=== PATIENT | male | born 1935 | race Caucasian/White ===

== ENCOUNTER 2018-08-30 08:24 | Day surgery (SDC) | payer OTHER, SELFPAY ==
[2018-08-30] VITALS (7 sets, daily range): BP systolic 85–147; BP diastolic 47–83; PULSE 63–80; RESP 14–20; TEMP 36.7–37.1; O2SAT 93–95; BMI 25.8
--- NOTE | 2018-08-30 | PATH_ITS ---
[facility] Accession Number: [id number] . 01 Material submitted: . PART A: POLYP BIOPSY ASCENDING COLON PART B: HEPATIC FLEXURE POLYP BIOPSY PART C: TRANSVERSE COLON POLYP AT 60CM X2 PART D: SIGMOID COLON POLYP AT 18CM . 02 Diagnosis: A. Ascending Colon Polyp, Biopsy: Tubular adenoma. . B. Hepatic Flexure Polyp, Biopsy: Tubular adenoma. . C. Transverse Colon Polyps at 60 cm: Fragments of tubular adenoma (two polyps removed). . D. Sigmoid Colon Polyp at 18 cm: Hyperplastic polyp. MRV/08/31/2018 . 02 Electronically signed: . Odin Leavitt MD, PhD, Pathologist NPI- [id number] . 01 Gross description: . Received four formalin-filled containers, each labeled with the patient's name: . A. In a container labeled polyp at ascending colon, the specimen consists of a 0.2 cm portion of tissue, entirely submitted in cassette A. B. In a container labeled hepatic flexure polyp, are two 0.3-0.5 cm portions of tissue, entirely submitted in cassette B. C. In a container labeled transverse polyp at 60 cm, are multiple less than 0.1 cm to 0.3 cm portions of tissue, entirely submitted in cassette C. D. In a container labeled sigmoid colon polyp at 18 cm, are two 0.1-0.3 cm portions of tissue, entirely submitted in cassette D. ([id number]) /FRR . 02 Pathologist provided ICD-10: D12.2, D12.3 . 02 CPT . 766649, [id number], [id number], [id number] Performed at: [address] [id number] MD Shahbaz Davenport MD Phone: [phone] Performed at: [address] [id number] MD Yvette Maxwell MD Phone: [phone]
[2018-08-30] MEDS: SODIUM CHLORIDE 0.9% 1,000 ML 200 ML IV (08:57)
--- NOTE | 2018-08-30 10:43 | PM.HP.1 ---
History of Present Illness Date Patient Seen: 08/30/18 Time Patient Seen: 10:43 Chief complaint: [id number] Narrative: 82-year-old male with personal history of colon polyps who presents today for colorectal screening. His last colonoscopy was 5 years ago. He denies any current gastrointestinal symptoms on further history today. No recent nausea, vomiting, loss of appetite, unexplained weight loss, abdominal pain, change in bowel habits, diarrhea, constipation, melena, hematochezia, or bright red blood per rectum. Patient History Medical History Benign prostatic hyperplasia (Acute) History of colon polyps (Acute) Hypertension (Acute) Surgical History History of colonoscopy (Acute) Family & Social History Family History: Reviewed 08/30/18 by Markos Middleton MD Social History: household members friend(s) Meds Home Medications Medication Instructions Recorded Confirmed Type finasteride 1 mg PO DAILY 08/30/18 08/30/18 History Allergies Allergy/AdvReac Type Severity Reaction Status Date / Time No Known Drug Allergies Allergy Verified 08/30/18 09:12 Review of Systems Review of Systems All systems reviewed & are unremarkable except as noted in HPI and below Exam Vital Signs (past 8 hours): - 08/30/18 09:03 Temperature 98.0 F Pulse Rate 76 Respiratory Rate 16 Blood Pressure 147/83 H Pulse Oximetry 95 Oxygen Delivery Method Room Air Narrative Exam Narrative: Elderly male lying comfortably in the gurney in no acute distress. Alert oriented x3. His is at the bedside for my entire visit this morning. Sclera nonicteric Chest clear to auscultation bilaterally with regular rate and rhythm. No murmurs, gallops, rubs. No crackles or wheezes. Abdomen is protuberant but soft. Nondistended. Nontender. No masses. Extremities show no clubbing or cyanosis Objective Labs Labs: No recent laboratory or radiographic studies for review Assessment & Plan Plan: Assessment/Plan Narrative: 82-year-old male with personal history of colon polyps. Last endoscopy was 5 years ago. He requires colorectal surveillance given the nature of the polyps. I recommend colonoscopy. Technical details of the procedure were explained. Risks, benefits, alternatives were discussed. Risks including but not limited to sedation, aspiration, bleeding, pain, missed lesion, incomplete examination, need for further radiographic studies, colonic perforation, need for major abdominal surgery, and all attendant risks of major surgery were explained at length. All questions were answered to his satisfaction, and he voiced understanding. Consent was placed on the chart. We will proceed as above.
--- NOTE | 2018-08-30 10:47 | P.HP_ITS ---
History of Present Illness Date Patient Seen: 08/30/18 Time Patient Seen: 10:43 Chief complaint: [id number] Narrative: 82-year-old male with personal history of colon polyps who presents today for colorectal screening. His last colonoscopy was 5 years ago. He denies any current gastrointestinal symptoms on further history today. No recent nausea, vomiting, loss of appetite, unexplained weight loss, abdominal pain, change in bowel habits, diarrhea, constipation, melena, hematochezia, or bright red blood per rectum. Patient History Medical History Benign prostatic hyperplasia (Acute) History of colon polyps (Acute) Hypertension (Acute) Surgical History History of colonoscopy (Acute) Family & Social History Family History: Reviewed 08/30/18 by Markos Middleton MD Social History: household members friend(s) Meds Home Medications Medication Instructions Recorded Confirmed Type finasteride 1 mg PO DAILY 08/30/18 08/30/18 History Allergies Allergy/AdvReac Type Severity Reaction Status Date / Time No Known Drug Allergies Allergy Verified 08/30/18 09:12 Review of Systems Review of Systems All systems reviewed & are unremarkable except as noted in HPI and below Exam Vital Signs (past 8 hours): - 08/30/18 09:03 Temperature 98.0 F Pulse Rate 76 Respiratory Rate 16 Blood Pressure 147/83 H Pulse Oximetry 95 Oxygen Delivery Method Room Air Narrative Exam Narrative: Elderly male lying comfortably in the gurney in no acute distress. Alert oriented x3. His is at the bedside for my entire visit this morning. Sclera nonicteric Chest clear to auscultation bilaterally with regular rate and rhythm. No murmurs , gallops, rubs. No crackles or wheezes. Abdomen is protuberant but soft. Nondistended. Nontender. No masses. Extremities show no clubbing or cyanosis Objective Labs Labs: No recent laboratory or radiographic studies for review Assessment & Plan Plan: Assessment/Plan Narrative: 82-year-old male with personal history of colon polyps. Last endoscopy was 5 years ago. He requires colorectal surveillance given the nature of the polyps. I recommend colonoscopy. Technical details of the procedure were explained. Risks, benefits, alternatives were discussed. Risks including but not limited to sedation, aspiration, bleeding, pain, missed lesion, incomplete examination, need for further radiographic studies, colonic perforation, need for major abdominal surgery, and all attendant risks of major surgery were explained at length. All questions were answered to his satisfaction, and he voiced understanding. Consent was placed on the chart. We will proceed as above.
--- NOTE | 2018-08-30 10:47 | PM.PREOP ---
Pre-operative Note Interval Note Pre-op Check: Yes History & Physical Reviewed by Physician, Yes Exam Performed and Yes History & Physical exam performed today by Physician Changes: No ASA Class (for procedural sedation): II
[2018-08-30] MEDS: fentaNYL 250 MCG/5 ML INJ IV (11:17)
[2018-08-30] MEDS: MIDAZOLAM 5 MG/5 ML VIAL IV (11:17)
--- NOTE | 2018-08-30 11:29 | PM.OP.ENDO ---
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 Sedation per surgeon 2. Colonoscopy with multiple cold forceps polypectomies Same procedure as scheduled: Yes Indications: 82-year-old male with personal history of colon polyps. His last endoscopy was 5 years ago. Colonoscopy is once again recommended. Surgeon: Markos Middleton Procedure Notes SCOAP/Timeout: Yes Procedure in detail: After obtaining informed consent, the patient was brought to the GI suite and placed in the left lateral decubitus position on the examination table. After placement of appropriate monitors, the patient was given incremental doses of Versed and Fentanyl until an appropriate level of sedation was achieved. A time out was held per SCOAP protocol. A digital rectal examination was performed and did not reveal any masses or obstructing lesions. The colonoscope was gently passed into the patient's anus and the entire colon navigated to the level of the cecum with minimal difficulty. Once in the cecum, the scope was withdrawn being sure to go before and beyond all mucosal folds and prominences and get an excellent examination. The findings are noted above. At the level of the rectal vault, the scope was retroflexed and the internal anal canal was examined. The scope was straightened and air aspirated from the colon. The instrument was removed from the patient's body and the procedure was concluded. The patient was allowed to awaken from sedation without difficulty and taken to the post-anesthesia care unit in good condition. Scope withdrawal time: 12:27 min Sedation minutes: 27 Findings: polyp and vascular ectasias (Located in the cecum with no evidence of hemorrhage currently) Specimen(s): other (1. Ascending colon polyp 2. Hepatic flexure polyp 3. Transverse colon polyps x2 at 60 cm 4. Sigmoid polyp at 18 cm) Complications: none Recommendations: High fiber diet, Will call with biopsy results and Other recommendation (No further colonoscopy indicated in absence of new symptoms pending biopsy results) Plan for aftercare: 1. Discharge home Follow up: as needed Disposition: PACU
== END 2018-08-30 12:20 | disposition home or self-care (01) ==
PROVIDERS: Family Provider Internal Medicine Cardiovascular Disease; PCP Family Medicine; Visit Provider Surgery
PROC: 0DJD8ZZ Inspection of Lower Intestinal Tract, Via Natural or Artificial Opening Endoscopic (ICD-10-PCS; CPT 45378; principal; 2018-08-30 09:45)
DX: Z86.010 Personal history of colon polyps (principal); D12.2 Benign neoplasm of ascending colon; D12.3 Benign neoplasm of transverse colon; D12.5 Benign neoplasm of sigmoid colon; I10 Essential (primary) hypertension; N40.0 Benign prostatic hyperplasia without lower urinary tract symptoms
CPT/HCPCS: 45380; 99152; 99153; J2250; J3010

== ENCOUNTER 2019-09-11 09:00 | Emergency (ER) | payer OTHER, SELFPAY ==
[2019-09-11 09:30] VITALS: BP 107/60; PULSE 76; RESP 15; TEMP 36.1; O2SAT 98; BMI 25.8
--- NOTE | 2019-09-11 09:33 | DI.RAD.S_ITS ---
PROCEDURE: XR WRIST RT MIN 3V INDICATIONS: injury TECHNIQUE: 4 views of the wrist were acquired. COMPARISON: None. FINDINGS: Bones: No displaced fractures or dislocations. There is moderate degeneration at the 1st carpometacarpal and triscaphe articulations. No suspicious bony lesions. Scaphoid view: The scaphoid appears intact. Soft tissues: No suspicious soft tissue calcifications. There is soft tissue swelling adjacent to the distal ulna. IMPRESSION: 1. No displaced fracture or dislocation. 2. Moderate degenerative changes at the triscaphe and 1st carpometacarpal articulations. Dictated by: Shahbaz Villela M.D. on 09/11/2019 at 8:55 Approved by: Shahbaz Villela M.D. on 09/11/2019 at 8:57
--- NOTE | 2019-09-11 10:39 | DI.RAD.S_ITS ---
PROCEDURE: XR RIBS LT MIN 3V W CXR1V INDICATIONS: fall/rib pain TECHNIQUE: 4 views of the left ribs were acquired, along with a single view chest. COMPARISON: None. FINDINGS: Surgical changes and devices: An IVC filter is noted. Bones and chest wall: No displaced rib fracture identified. No suspicious bony lesions. Overlying soft tissues appear unremarkable. Lungs and pleura: No pleural effusions or pneumothorax. Lungs appear clear. Mediastinum: Mediastinal contours appear normal. Heart size is normal. IMPRESSION: 1. No displaced rib fracture identified. Dictated by: Shahbaz Villela M.D. on 09/11/2019 at 9:52 Approved by: Shahbaz Villela M.D. on 09/11/2019 at 9:54
--- NOTE | 2019-09-11 10:47 | ED.FALL ---
HPI - Fall General Chief Complaint: Fall Stated Complaint: FELL LAST NIGHT- HURT R WRIST & RIBS Time Seen by Provider: 09/11/19 10:14 Source: patient Mode of arrival: Ambulatory Limitations: no limitations History of Present Illness HPI Narrative: Patient comes emergency department complaining of right wrist and left rib pain after a fall last night. Patient states he was walking his dog when he tripped over the dog and fell. Patient states he thinks he fell on asphalt. He complains right wrist pain and left rib pain. He states that it does not hurt to take a deep breath but feels ?weird?. Patient states he has been able to move his wrist, but that he has pain over the ulnar styloid area. Patient states he ?bumped? his head, but that he has not noticed any swelling over the area. He did not lose consciousness and has not had headache, dizziness, or nausea today. No visual changes. Patient denies any other injuries. He has been ambulatory since the fall. No hip or lower extremity pain. No other injuries to the upper extremities. no other complaints at this time. Related Data Home Medications Medication Instructions Recorded Confirmed finasteride 1 mg PO DAILY 08/30/18 08/30/18 Allergies Allergy/AdvReac Type Severity Reaction Status Date / Time No Known Drug Allergies Allergy Verified 09/11/19 09:30 Review of Systems Constitutional Constitutional: Denies chills, Denies fatigue, Denies fever(s), Denies frequent falls, Denies lethargy and Denies weakness Eyes Eyes: Denies change in vision, Denies eye discharge, Denies irritation and Denies loss of vision ENT Ears, Nose, Mouth, and Throat: Denies change in voice, Denies dizziness, Denies neck pain, Denies sore throat and Denies throat swelling Cardiovascular Cardiovascular: Denies chest pain, Denies irregular heart rhythm, Denies lightheadedness, Denies palpitations, Denies dyspnea, Denies dyspnea on exertion and Denies orthopnea Respiratory Respiratory: Denies cough, Denies dyspnea, Denies dyspnea on exertion and Denies wheezing Gastrointestinal Gastrointestinal: Denies abdominal pain, Denies change in bowel habits, Denies diarrhea, Denies nausea and Denies vomiting Genitourinary Genitourinary: Denies hematuria, Denies flank pain, Denies urinary incontinence and Denies urinary urgency Musculoskeletal Musculoskeletal: Denies back pain, Denies muscle weakness, Denies neck pain, Denies numbness and Denies tingling Comments: Wrist pain Integumentary/Breasts Skin/Breast: Denies pruritus, Denies erythema, Denies rash and Denies wounds Neurologic Neurologic: Denies behavioral changes, Denies confusion, Denies dizziness, Denies frequent falls, Denies loss of vision, Denies numbness, Denies tingling and Denies weakness Psychiatric Psychiatric: Denies anxiety, Denies behavioral changes, Denies confusion, Denies depression, Denies homicidal ideation and Denies suicidal ideation Endocrine Endocrine: Denies fatigue, Denies flushing and Denies palpitations Hematologic/Lymphatic Hematologic/Lymphatic: Denies easy bruising Allergic/Immunologic Allergic/Immunologic: Denies urticaria, Denies throat swelling and Denies wheezing Patient History Medical History Benign prostatic hyperplasia (Acute) History of colon polyps (Acute) Hypertension (Acute) Surgical History History of colonoscopy (Acute) Social History household members: friend(s) Exam Initial Vital Signs Initial Vital Signs: Vital Signs Temperature 96.9 F L 09/11/19 09:30 Pulse Rate 76 09/11/19 09:30 Respiratory Rate 15 09/11/19 09:30 Blood Pressure 107/60 09/11/19 09:30 Pulse Oximetry 98 09/11/19 09:30 Const General: cooperative and well developed Nutritional Appearance: well nourished Orientation: alert, awake, oriented x3 and not confused [facility] Head: normocephalic and atraumatic Ears: TM's normal bilaterally Nose: external nose normal and No nasal discharge Face and sinus: face symmetric and No dry mucous membranes Mouth: oral mucosae normal and moist mucous membranes Teeth and gingiva: dentition normal Eyes General: appearance normal, both eyes and all related structures Eyelids: eyelids normal Conjunctivae: conjunctivae normal Sclera: sclerae normal Pupils: PERRL EOM: EOM intact bilaterally Neck Neck: normal visual inspection, trachea midline, No lymphadenopathy, No midline deformity and No JVD Lymphatic: No lymphedema Other: No C-spine tenderness or step-off. Chest Other: Patient has tenderness palpation over his left anterior inferior rib cage. No step-off or crepitus. Resp Effort & Inspection: normal respiratory effort, able to speak in complete sentences, no respiratory distress and no use of accessory muscles Auscultation: clear to auscultation bilaterally, no rales, no rhonchi and no wheezes Cardio Rate: regular rate Rhythm: regular rhythm Heart Sounds: no click, no gallops, no murmurs and no rubs Pulses: normal peripheral pulses GI Inspection: non-distended Palpation: soft, no hepatosplenomegaly, No guarding, No pulsatile mass and No tender Auscultation: normal bowel sounds Back/Spine/Pelvis Back: No CVA tenderness Cervical Spine: cervical ROM normal and No pain with cervical ROM Thoracic/Lumbar Spine: thoracic and lumbar spine normal to inspection Other: No pelvic tenderness. Skin General: no rashes or lesions noted, No jaundice and No petechiae Neuro General: alert, oriented x3, gait normal and no focal motor deficits Speech: speech normal Extrem General: full ROM Other: Patient has edema over the dorsum of his right proximal hand and wrist. No deformity. Patient has mild tenderness over the ulnar aspect of his wrist. Neurovascularly intact. no other extremity trauma noted. Psych Appearance: well kempt Mental Status: mental status grossly normal Attitude: cooperative Thought Content: normal and suicidality Judgment: judgment good Course Course Course Narrative: Patient was worked up with x-rays of the left ribs and the right wrist, all of which were unremarkable. We have discussed home management of the symptoms, as well as the usual indications for return. Orders Ordered: ED Orders 09/11/19 09:33 XR wrist RT min 3V Stat 09/11/19 10:39 XR ribs LT min 3V w CXR1V Stat Vital Signs Vital signs: Vital Signs - 8 hr 09/11/19 09:30 Temperature 96.9 F L Pulse Rate 76 Respiratory Rate 15 Blood Pressure 107/60 Pulse Oximetry 98 MDM - Fall Medical Records Attestation: I reviewed the patient's medical records. Imaging Data X-ray ribs: Radiologist's impression: PROCEDURE: XR RIBS LT MIN 3V W CXR1V INDICATIONS: fall/rib pain TECHNIQUE: 4 views of the left ribs were acquired, along with a single view chest. COMPARISON: None. FINDINGS: Surgical changes and devices: An IVC filter is noted. Bones and chest wall: No displaced rib fracture identified. No suspicious bony lesions. Overlying soft tissues appear unremarkable. Lungs and pleura: No pleural effusions or pneumothorax. Lungs appear clear. Mediastinum: Mediastinal contours appear normal. Heart size is normal. IMPRESSION: 1. No displaced rib fracture identified. Dictated by: Shahbaz Villela M.D. on 09/11/2019 at 9:52 Approved by: Shahbaz Villela M.D. on 09/11/2019 at 9:54 X-ray wrist: Radiologist's impression: PROCEDURE: XR WRIST RT MIN 3V INDICATIONS: injury TECHNIQUE: 4 views of the wrist were acquired. COMPARISON: None. FINDINGS: Bones: No displaced fractures or dislocations. There is moderate degeneration at the 1st carpometacarpal and triscaphe articulations. No suspicious bony lesions. Scaphoid view: The scaphoid appears intact. Soft tissues: No suspicious soft tissue calcifications. There is soft tissue swelling adjacent to the distal ulna. IMPRESSION: 1. No displaced fracture or dislocation. 2. Moderate degenerative changes at the triscaphe and 1st carpometacarpal articulations. Dictated by: Shahbaz Villela M.D. on 09/11/2019 at 8:55 Approved by: Shahbaz Villela M.D. on 09/11/2019 at 8:57 Discharge Plan Departure Patient Disposition: Home Clinical Impression: Right wrist sprain Qualifiers: Encounter type: initial encounter Qualified Code(s): S63.501A - Unspecified sprain of right wrist, initial encounter Contusion of ribs Qualifiers: Encounter type: initial encounter Laterality: left Qualified Code(s): S20.212A - Contusion of left front wall of thorax, initial encounter Discharge Date/Time: 09/11/19 11:40 Instructions: DI for Wrist Sprain, DI for Rib Contusion Activity Restrictions/Additional Instructions: The x-rays of your wrist and your ribs look good. 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 Your ribs also look good. You have most likely bruised them in the fall, but there is nothing broken. Prescriptions: No Action finasteride 1 mg Tablet 1 mg PO DAILY RF: 0 Referrals: Vinayak Carreon MD [Primary Care Provider] -
[2019-09-11 11:38] VITALS: PULSE 67; RESP 16; O2SAT 97
== END 2019-09-11 11:40 | disposition home or self-care (01) ==
PROVIDERS: Emergency Provider Emergency Medicine; Family Provider Internal Medicine Cardiovascular Disease; PCP Family Medicine
DX: S63.501A Unspecified sprain of right wrist, initial encounter (principal); S20.212A Contusion of left front wall of thorax, initial encounter; W01.0XXA Fall on same level from slipping, tripping and stumbling without subsequent striking against object, initial encounter
CPT/HCPCS: 71101; 73110; 99282; 99283

== ENCOUNTER 2023-02-09 08:15 | Emergency (ER) | payer OTHER, SELFPAY ==
[2023-02-09] VITALS (10 sets, daily range): BP systolic 118–177; BP diastolic 56–100; PULSE 60–75; RESP 16–29; TEMP 36.5; O2SAT 94–96; BMI 27.4
--- NOTE | 2023-02-09 09:06 | DI.RAD.S_ITS ---
PROCEDURE: XR CHEST 1V INDICATIONS: chest pain TECHNIQUE: One view of the chest was acquired. COMPARISON: None. FINDINGS: Surgical changes and devices: None. Lungs and pleura: Lungs are clear. No pleural effusions or pneumothorax. Mediastinum: Mediastinal contours appear normal. Heart size is normal. Bones and chest wall: No suspicious bony lesions. Overlying soft tissues appear unremarkable. IMPRESSION: No acute pulmonary process. Dictated by: Henna Ramirez M.D. on 02/09/2023 at 9:18 Approved by: Henna Ramirez M.D. on 02/09/2023 at 9:18
--- NOTE | 2023-02-09 09:06 | DI.CT.S_ITS ---
PROCEDURE: CT HEAD/BRAIN WO CON INDICATIONS: headache TECHNIQUE: Noncontrast 4.5 mm thick angled axial sections acquired from the foramen magnum to the vertex, with coronal and sagittal reformats. For radiation dose reduction, the following was used: automated exposure control, adjustment of mA and/or kV according to patient size. COMPARISON: None. FINDINGS: Image quality: Excellent. CSF spaces: Basal cisterns are patent. No extra-axial fluid collections. The ventricles are symmetric in size and shape. Brain: No intracranial bleeds or masses. There is cerebral volume loss for age, with resultant ventricular and sulcal prominence. There are periventricular and deep white matter chronic small vessel ischemic changes. There is intracranial internal carotid artery atherosclerosis. Skull and face: Calvarium and visualized facial bones appear intact, without suspicious lesions. Sinuses: Visualized sinuses and mastoids are clear. IMPRESSION: 1. No acute intracranial process. 2. Moderate atrophy and chronic microvascular ischemic changes. Dictated by: Henna Ramirez M.D. on 02/09/2023 at 9:23 Approved by: Henna Ramirez M.D. on 02/09/2023 at 9:24
--- NOTE | 2023-02-09 09:08 | ED.HA ---
HPI - Headache General Chief Complaint: Headache Stated Complaint: sent by [facility] for headache T-1 Time Seen by Provider: 02/09/23 08:40 Mode of arrival: Ambulatory History of Present Illness HPI Narrative: Patient is an 87-year-old male with history of hyperlipidemia, possible atrial fibrillation not on anticoagulation, presents today from walk-in clinic for headache ongoing for about 1-2 days. It is in the back of his head he did take Tylenol last night for it which seemed to help. He is no numbness tingling or weakness. He does not typically get headaches. He is no nausea or vomiting. Went to the walk-in clinic for evaluation and sent here for further workup. He has not had fever no neck pain. No abdominal pain no chest pain or palpitations. Overall feeling better now that he is here in the emergency department. Related Data Home Medications Medication Instructions Recorded Confirmed finasteride 1 mg tablet 1 mg PO DAILY 08/30/18 08/30/18 Allergies Allergy/AdvReac Type Severity Reaction Status Date / Time No Known Drug Allergies Allergy Verified 09/11/19 09:30 Review of Systems Review of Systems ROS Unobtainable: All systems reviewed & are unremarkable except as noted in HPI and below Patient History Medical History (Updated 02/09/23 @ 10:31 by Becki Oneal DO) Benign prostatic hyperplasia History of colon polyps Hypertension Surgical History History of colonoscopy Social History household members: friend(s) Smoking Status: Never smoker Smoking Status: Never smoker alcohol intake frequency: a few times a week Alcohol type: beer Substance Use Type: does not use Exam Initial Vital Signs Initial Vital Signs: Vital Signs Temperature 97.7 F 02/09/23 08:24 Pulse Rate 64 02/09/23 08:24 Respiratory Rate 18 02/09/23 08:24 Blood Pressure 177/81 H 02/09/23 08:24 Pulse Oximetry 96 02/09/23 08:24 Oxygen Delivery Method Room Air 02/09/23 08:24 GENERAL: Alert very pleasant 87-year-old male and in no acute distress. HEENT: Head atraumatic,EOMI, pupils reactive, face symmetric, moist mucous membranes CARDIOVASCULAR: Regular rate and rhythm without murmurs, rubs or gallops. RESPIRATORY: Breath sounds equal bilaterally, no wheezes rales or rhonchi. ABDOMEN: Soft, nontender. Normoactive bowel sounds all 4 quadrants. No guarding or rebound. EXTREMITIES: Normal range of motion, no clubbing or edema. Neurovascularly intact NEUROLOGICAL: Alert and oriented x4.Normal gait and speech. Cranial nerves II through XII grossly intact. Good dxsesg-ep-ibgj, good dycn-jv-rpql, strength equal bilaterally, no dysarthria or aphasia, sensation in tact to soft touch bilaterally, no visual changes, no facial droop SKIN: Warm, dry, no laceration, no petechiae, no rashes or lesions. Scores NIH Stroke Scale Level of Conciousness: Alert, keenly responsive Ask month/age: Answers both questions correctly. Open/close eyes, close hand: Performs both tasks correctly Best gaze horizontal: Normal Visual glass: No visual loss Facial palsy: Normal symetrical movement Left arm drift: No drift for full 10 sec Right arm drift: No drift for full 10 sec Left leg drift: No drift for full 5 sec Right leg drift: No drift for full 5 sec Limb ataxia: Absent Sensory on face/arms/legs: Normal, no sensory loss Best language: No aphasia, normal Dysarthria: Normal Extinction or inattention: No abnormality Total NIH Stroke scale score: 0 Course Orders Ordered: Discontinued Medications Acetaminophen (Acetaminophen 325 Mg Tablet) 975 mg PO NOW ONE Stop: 02/09/23 09:07 Last Admin: 02/09/23 11:22 Dose: 975 mg Documented By: [facility] Vital Signs Vital signs: Vital Signs - 8 hr 02/09/23 08:24 02/09/23 08:31 02/09/23 09:00 Temperature 97.7 F Pulse Rate 64 62 Respiratory Rate 18 29 H Blood Pressure 177/81 H 144/68 H Pulse Oximetry 96 94 Oxygen Delivery Method Room Air Room Air 02/09/23 09:30 Temperature Pulse Rate 65 Respiratory Rate 24 Blood Pressure Pulse Oximetry 96 Oxygen Delivery Method MDM - Headache Lab Data 02/09/23 08:50 02/09/23 08:50 Labs: Lab Results 02/09/23 02/09/23 Range/Units 08:50 08:50 WBC 5.2 (4.5-11.0) X10^3/uL RBC 4.08 L (4.5-5.9) X10^6/uL Hgb 12.4 L (13.5-17.5) g/dL Hct 35.9 L (41-53) % MCV 88.1 (80-100) fL MCH 30.3 (26-34) PG MCHC 34.4 (30-36) % RDW 13.1 (11.6-14.8) % Plt Count 153 (150-400) X10^3/uL Neut % (Auto) 55.1 (50-75) % Lymph % (Auto) 27.6 (25-40) % [place] % (Auto) 11.4 (3-14) % Eos % (Auto) 4.4 H (2-4) % Baso % (Auto) 1.5 (0-2) % Neut # (Auto) 2900 (0289-3638) /uL Lymph # (Auto) 1400 (2087-7749) /uL [place] # (Auto) 600 (0-900) /uL Eos # (Auto) 200 (0-450) /uL Baso # (Auto) 100 (0-100) /uL Sodium 140 (137-145) mmol/L Potassium 4.2 (3.4-5.1) mmol/L Chloride 108 H (98-107) mmol/L Carbon Dioxide 24 (22-32) mmol/L BUN 24 H (9-20) mg/dL Creatinine 0.94 (0.66-1.25) mg/dL Estimated GFR > 60 (>60) mL/min BUN/Creatinine Ratio 25.5 H (6-22) Glucose 106 (80-110) mg/dL Calcium 9.0 (8.4-10.2) mg/dL Total Bilirubin 0.4 (0.2-1.3) mg/dL AST 18 (17-59) IU/L ALT 16 (<50) IU/L Alkaline Phosphatase 48 (38-126) U/L Total Creatine Kinase 57 (55-170) U/L CK-MB (CK-2) TNP CK-MB (CK-2) Rel Index TNP Troponin I < 0.012 (0.01-0.034) ng/mL Total Protein 7.0 (6.3-8.2) g/dL Albumin 3.9 (3.5-5.0) g/dL Globulin 3.1 (1.7-4.1) g/dL Albumin/Globulin Ratio 1.3 (1.0-2.8) Lipase 98 (23-300) U/L Imaging Data CT scan - head: Radiologist's Impression: PROCEDURE:? CT HEAD/BRAIN WO CON ? INDICATIONS:? headache ? TECHNIQUE:? Noncontrast 4.5 mm thick angled axial sections acquired from the foramen magnum to the vertex, with coronal and sagittal reformats.? For radiation dose reduction, the following was used:? automated exposure control, adjustment of mA and/or kV according to patient size.? ? COMPARISON:? None. ? FINDINGS:? Image quality:? Excellent.? ? CSF spaces:? Basal cisterns are patent.? No extra-axial fluid collections.? The ventricles are symmetric in size and shape.? ? Brain:? No intracranial bleeds or masses.? There is cerebral volume loss for age, with resultant ventricular and sulcal prominence.? There are periventricular and deep white matter chronic small vessel ischemic changes.? There is intracranial internal carotid artery atherosclerosis.? ? Skull and face:? Calvarium and visualized facial bones appear intact, without suspicious lesions.? ? Sinuses:? Visualized sinuses and mastoids are clear.? ? IMPRESSION:? ? 1. No acute intracranial process. ? 2. Moderate atrophy and chronic microvascular ischemic changes. ? ? ? Dictated by: Henna Ramirez M.D. on 02/09/2023 at 9:23 ?? ECG Data Interpretation: EKG atrial fibrillation rate [address] changes no priors to compare MDM Narrative Medical decision making narrative: The patient 87-year-old male presenting with mild headache posterior head without focal deficits. Head CT is negative for any acute bleed no concern for CVA at this time. Blood work overall reassuring no leukocytosis anemia electrolyte abnormality, troponin is negative. No fever no neck pain no evidence of meningitis. His headache is mostly very well controlled he required a little bit of Tylenol. He has no nausea or vomiting. Recommend supportive care only. He overall is doing much better. We did discuss that he has atrial fibrillation risk of stroke recommended aspirin. He is quite confident that he has a history of AFib we have very little records here. Discharge Plan Departure Patient Disposition: Home Clinical Impression: Headache Instructions: DI for Atrial Fibrillation, DI for Headache Activity Restrictions/Additional Instructions: *You have been diagnosed with headache, atrial fibrillation *What to do: At this time no evidence of stroke. However atrial fibrillation does put you at risk for stroke *Continue to take medications as directed Aspirin 81 mg once a day Tylenol 650 mg every 4-6 hours if needed for pain *Follow up with your primary care provider in 2-3 days or call [phone] *Return to ER if you should have increasing headache weakness numbness tingling speech difficulty continue or any new, worsening or concerning symptoms Prescriptions: No Action finasteride 1 mg Tablet 1 mg PO DAILY Referrals: Vinayak Carreon MD [Primary Care Provider] - Stand Alone Forms: Patient Portal/API
[2023-02-09 09:17] LABS: Add Manual Diff / Slide Review NO; Basophils Absolute Auto 100 /uL (0-100); Basophils Percent Auto 1.5 % (0-2); Eosinophils Absolute Auto 200 /uL (0-450); Eosinophils Percent Auto 4.4 % (2-4); Hematocrit 35.9 % (41-53); Hemoglobin 12.4 g/dL (13.5-17.5); Lymphocytes Absolute Auto 1400 /uL (1100-4500); Lymphocytes Percent Auto 27.6 % (25-40); Mean Corpuscular HGB Conc 34.4 % (30-36); Mean Corpuscular Hemoglobin 30.3 PG (26-34); Mean Corpuscular Volume 88.1 fL (80-100); Monocytes Absolute Auto 600 /uL (0-900); Monocytes Percent Auto 11.4 % (3-14); Neutrophils Absolute Auto 2900 /uL (1500-7000); Neutrophils Percent Auto 55.1 % (50-75); Platelet Count 153 X10^3/uL (150-400); Red Blood Cell Count 4.08 X10^6/uL (4.5-5.9); Red Cell Distribution Width 13.1 % (11.6-14.8); White Blood Cell Count 5.2 X10^3/uL (4.5-11.0)
[2023-02-09 09:23] LABS: Alanine Aminotransferase 16 IU/L (<50); Albumin 3.9 g/dL (3.5-5.0); Albumin Globulin Ratio 1.3 (1.0-2.8); Alkaline Phosphatase 48 U/L (38-126); Aspartate Aminotransferase 18 IU/L (17-59); BUN Creatinine Ratio 25.5 (6-22); Bilirubin Total 0.4 mg/dL (0.2-1.3); Blood Urea Nitrogen 24 mg/dL (9-20); Carbon Dioxide 24 mmol/L (22-32); Chloride 108 mmol/L (98-107); Creatine Kinase 57 U/L (55-170); Estimated Glomerular Filt Rate > 60 mL/min (>60); Globulin 3.1 g/dL (1.7-4.1); Glucose 106 mg/dL (80-110); HEMOLYSIS < 15 (0-50); Lipase 98 U/L (23-300); Potassium 4.2 mmol/L (3.4-5.1); Sodium 140 mmol/L (137-145)
[2023-02-09 09:35] LABS: Troponin I < 0.012 ng/mL (0.01-0.034)
--- NOTE | 2023-02-09 11:13 | PC.NURSE ---
At 0943 patient offered acetaminophen 975mg with education, pt stated he was headache free and declined at the time. Pt now requesting medication.
[2023-02-09] MEDS: ACETAMINOPHEN 325 MG TABLET 975 MG PO (11:22)
== END 2023-02-09 11:15 | disposition home or self-care (01) ==
PROVIDERS: Emergency Provider Emergency Medicine; Family Provider Internal Medicine Cardiovascular Disease; PCP Family Medicine
DX: R51.9 Headache, unspecified (principal); I48.91 Unspecified atrial fibrillation
CPT/HCPCS: 36415; 70450; 71045; 80053; 82550; 83690; 84484; 85025; 93005

== ENCOUNTER 2023-02-09 22:04 | Emergency (ER) | payer OTHER, SELFPAY ==
[2023-02-09] VITALS (8 sets, daily range): BP systolic 124–182; BP diastolic 61–88; PULSE 63–72; RESP 15–27; TEMP 36.5; O2SAT 96–97; BMI 27.3
--- NOTE | 2023-02-09 22:14 | ED_ITS ---
HPI - General Adult General Chief complaint: Headache Stated complaint: headache- sharp Time Seen by Provider: 02/09/23 22:10 History of Present Illness HPI narrative: 87-year-old male nonsmoker with history of BPH presents by EMS for evaluation of very brief episodes of right-sided occipital head pain. He had been seen and evaluated earlier in the day and had a very extensive and appropriate workup including a CT scan and felt well enough for discharge. His pain has been present over the course of the day in his right-sided occiput as noted, there is no obvious provocation or palliation nor radiation of his symptoms. The symptoms will be present for 1 minute or less and then gone for 5-10 minutes and then frequently will return. There are no other neurologic symptoms such as blurred vision, trouble speech nor extremity numbness, tingling or weakness. He has no neck pain. He is had no trauma or injury and denies the use of blood thinners. Family does note that the headaches seemed to start after taking an gzuc-eew-eylouod supplement which is noted to have headaches in the list of potential side effects. There are no other medication or dietary changes of note Related Data Home Medications Medication Instructions Recorded Confirmed finasteride 1 mg tablet 1 mg PO DAILY 08/30/18 08/30/18 Allergies Allergy/AdvReac Type Severity Reaction Status Date / Time No Known Drug Allergies Allergy Verified 09/11/19 09:30 Review of Systems Review of Systems Narrative: GENERAL: Denies chills, fatigue, malaise, fever, sweats. HEENT: Denies sinus pain, ear pain, sore throat, difficulty swallowing, dizziness. RESPIRATORY: Denies dyspnea, cough, wheezing, hemoptysis, sputum. CARDIOVASCULAR: Denies chest pain, palpitations, orthopnea, edema, GASTROINTESTINAL: Denies nausea, vomiting, abdominal pain, diarrhea, constipation, melena. : Denies dysuria, frequency, incontinence, hematuria, urinary retention. MUSCULOSKELETAL: denies weakness, joint pain, or bony pain SKIN: Denies rash, skin lesions, or other NEUROLOGIC: See HPI PSYCHIATRIC: No concerning psychosocial issues. 12 point review of systems is negative except for those stated above Patient History Medical History Benign prostatic hyperplasia History of colon polyps Hypertension Surgical History History of colonoscopy Social History household members: friend(s) Smoking Status: Never smoker Smoking Status: Never smoker alcohol intake frequency: a few times a week Alcohol type: beer Substance Use Type: does not use Exam Narrative Exam Narrative: GENERAL: [87] year old patient appears stated age. Well-developed patient, in mild distress. HEAD: Atraumatic. Normocephalic. EYES: Pupils equal round and reactive. Extraocular motions intact. No scleral icterus. No injection or drainage. ENT: Nose without bleeding, purulent drainage. Throat without erythema, tonsillar hypertrophy or exudate. Airway patent. NECK: Trachea midline. Non tender CARDIOVASCULAR: Regular rate and rhythm without murmurs, gallops, or rubs. RESPIRATORY: Clear to auscultation. Breath sounds equal bilaterally. No wheezes, rales, or rhonchi. GASTROINTESTINAL: Abdomen soft, non-tender, nondistended. EXTREMITIES: No edema or joint tenderness. BACK: Nontender without deformity or crepitance. No flank tenderness. NEURO: AOx3. SKIN: No rash or erythema of visible areas NIH Stroke Scale 1a. LOC: Patient is alert and keenly responsive (0) 1b. LOC Questions: Patient answers both LOC questions accurately (0) 1c. LOC Commands: Patient performs both tasks correctly (0) 2. Best Gaze: Normal (0) 3. Visual: No visual loss (0) 4. Facial palsy: Normal symmetrical movements (0) 5. Motor arm: No drift (0) 6. Motor leg: No drift (0) 7. Limb ataxia: Absent (0) 8. Sensory: Normal (0) 9. Best language: No aphasia; normal (0) 10. Dysarthria: Normal (0) 11. Extinction and inattention: No abnormality (0) NIHSS: 0 Initial Vital Signs Initial Vital Signs: Vital Signs Pulse Rate 65 02/09/23 22:13 Respiratory Rate 22 02/09/23 22:13 Pulse Oximetry 96 02/09/23 22:13 Medical Decision Making Lab Data 02/09/23 22:35 02/09/23 22:35 Labs: Lab Results 02/09/23 02/09/23 02/09/23 Range/Units 22:35 22:35 22:59 WBC 5.3 (4.5-11.0) X10^3/uL RBC 3.84 L (4.5-5.9) X10^6/uL Hgb 11.8 L (13.5-17.5) g/dL Hct 33.7 L (41-53) % MCV 87.6 (80-100) fL MCH 30.7 (26-34) PG MCHC 35.1 (30-36) % RDW 13.2 (11.6-14.8) % Plt Count 151 (150-400) X10^3/uL Neut % (Auto) 52.9 (50-75) % Lymph % (Auto) 31.1 (25-40) % [place] % (Auto) 10.3 (3-14) % Eos % (Auto) 4.2 H (2-4) % Baso % (Auto) 1.5 (0-2) % Neut # (Auto) 2800 (4804-4938) /uL Lymph # (Auto) 1700 (9181-5966) /uL [place] # (Auto) 500 (0-900) /uL Eos # (Auto) 200 (0-450) /uL Baso # (Auto) 100 (0-100) /uL ESR 24 H (0-15) MM/HR Sodium 139 (137-145) mmol/L Potassium 4.0 (3.4-5.1) mmol/L Chloride 105 (98-107) mmol/L Carbon Dioxide 27 (22-32) mmol/L BUN 27 H (9-20) mg/dL Creatinine 1.07 (0.66-1.25) mg/dL Estimated GFR > 60 (>60) mL/min BUN/Creatinine Ratio 25.2 H (6-22) Glucose 113 H (80-110) mg/dL Calcium 8.7 (8.4-10.2) mg/dL Magnesium 1.9 (1.6-2.3) mg/dL Total Bilirubin 0.2 (0.2-1.3) mg/dL AST 19 (17-59) IU/L ALT 16 (<50) IU/L Alkaline Phosphatase 52 (38-126) U/L C-Reactive Protein < 0.5 (<1.0) mg/dL Total Protein 6.8 (6.3-8.2) g/dL Albumin 3.9 (3.5-5.0) g/dL Globulin 2.9 (1.7-4.1) g/dL Albumin/Globulin Ratio 1.3 (1.0-2.8) Lipase 127 (23-300) U/L SARS-CoV-2 (PCR) Negative (Negative) Influenza A (RT-PCR) Flu a negative (NEGATIVE) Influenza B (RT-PCR) Flu b negative (NEGATIVE) RSV (PCR) Negative (Negative) MDM Narrative Medical decision making narrative: [87] year old patient presents with second visit for brief, unprovoked R occipital DICKEY Multiple etiologies for patient's symptoms considered including, but not limited to: [ICH, sentinel bleed, atypical migraine vs. medication reaction vs. other] Prior Charts reviewed in our EMR Primary Historian: patient Labs reviewed and interpreted by myself: No significant abnormality which would require specific or immediate intervention Imaging reviewed: CT angiogram without acute findings Patient's symptoms improved over duration of stay with above-stated therapies. Findings and discharge diagnosis discussed with patient/family followed by verbalization of understanding Return precautions discussed with patient/family whom verbalize understanding of diagnosis and plan Headache considerations include, but not limited to: Subarachnoid hemorrhage, but unlikely as patient denies sudden onset of pain, not worst of life, or neck pain Meningitis considered, but thought unlikely given lack of Brudzinski's, Kernig's sign, altered mental status or fever Giant cell arteritis considered, but thought unlikely given lack of unilateral findings, pain in mandaen, vision change HTN Emergency considered, but thought unlikely given normal vitals Other serious diagnoses considered unlikely given lack of red flag findings such as sudden onset, increasing frequency, immunocompromise, systemic signs (fever, chills, stiff neck, or rash), focal neurologic findings, trauma, blood thinners, etc. Discharge Plan Departure Patient Disposition: Home Clinical Impression: Headache Instructions: DI for Headache Activity Restrictions/Additional Instructions: *You have been diagnosed with [ Headache ] *What to do: *Take medications as directed *Follow up with your primary care provider in 2-3 days, call for an appointment. Let them know you were seen in the Emergency Department and that we ask that you be seen in follow up *Return to ER if you should have any new, worsening or concerning symptoms, such as [ fever > 101F, neck pain or stiffness, vomiting, confusion, seizure, focal weakness, vision change, speech deficit or other concerning symptoms ] Prescriptions: No Action finasteride 1 mg Tablet 1 mg PO DAILY Referrals: Vinayak Carreon MD [Primary Care Provider] - Stand Alone Forms: Patient Portal/API
--- NOTE | 2023-02-09 22:21 | DI.CT.S_ITS ---
PROCEDURE: CT ANGIO HEAD AND NECK INDICATIONS: headache, second visit TECHNIQUE: Pre-contrast 4.5 mm thick sections acquired from the foramen magnum to the vertex. After the administration of intravenous contrast, 1 mm thick sections acquired from the aortic arch through the [place] of [place]. Post-contrast 4.5 mm thick sections then re-acquired from the foramen magnum to the vertex. 3-dimensional fdvklnv-fmmgogpir-cvpvbkoacn (MIP) and/or volume rendering reformats were acquired of the central intracranial vasculature and neck separately. For radiation dose reduction, the following was used: automated exposure control, adjustment of mA and/or kV according to patient size. COMPARISON: [facility], CT, CT HEAD/BRAIN WO CON, 02/09/2023, 9:16. FINDINGS: Image quality: There is motion artifact limiting evaluation. BRAIN: CSF spaces: Basal cisterns are patent. No extra-axial fluid collections. There is moderate cerebral volume loss, with resultant ventricular and sulcal prominence. Brain: No intracranial hemorrhage, mass, or mass effect. There are subcortical, periventricular and deep white matter hypodensities consistent with moderate chronic small vessel ischemic changes. The perrin-white matter junction appears preserved. There is intracranial internal carotid artery atherosclerosis. No abnormal intracranial enhancement. Skull and face: Calvarium and facial bones appear intact, without suspicious lesions. Orbits appear normal. Sinuses: Sinuses and mastoids are clear. HEAD CT ANGIOGRAPHY: Anterior circulation: Intracranial internal carotid arteries are normal in size and appear patent bilaterally. There is mild atherosclerotic calcification along the cavernous segments of the internal carotid arteries. The paired anterior cerebral arteries appear patent bilaterally. The anterior communicating artery also appears patent. The middle cerebral arteries appear patent bilaterally. No high-grade stenosis, occlusion, or filling defects. No cerebral aneurysms identified. Posterior circulation: Visualized portions of the vertebral arteries demonstrate normal caliber, and join to form a patent basilar artery. The posterior cerebral arteries appears patent bilaterally. No high-grade stenosis, occlusion, or filling defects. No cerebral aneurysms identified. NECK CT ANGIOGRAPHY: Carotid system: The great vessels demonstrate a 4 vessel aortic arch with separate origin of the left vertebral artery as they arise from the aortic arch. The origins of the common carotid arteries appear patent. The common carotid arteries demonstrate normal caliber and courses. There is calcified plaque within the carotid bulbs with narrowing of less than 50% bilaterally. The internal carotid arteries demonstrate normal calibers and courses. Posterior circulation: The origins of the vertebral arteries both appear patent. The more superior extracranial portions of both vertebral arteries also demonstrate normal courses and calibers. They join to form a patent basilar artery. Soft tissues: Visualized neck soft tissues demonstrate no suspicious abnormalities. Bones: No suspicious bony lesions. Visualized cervical spine demonstrates straightening of the cervical lordosis. There is multilevel degenerative disc disease and facet joint arthropathy. IMPRESSION: 1. No acute intracranial abnormality. 2. Moderate cerebral volume loss and chronic white matter small vessel ischemic changes. 3. No high-grade stenosis or occlusion of the central intracranial arteries. No discrete aneurysms identified. 4. No high-grade stenosis or occlusion of the head and neck arteries. There is narrowing of less than 50% in the carotid bulbs. Any quantitative measurements of stenosis were performed using NASCET criteria. Dictated by: Shahbaz Villela M.D. on 02/09/2023 at 23:03 Approved by: Shahbaz Villela M.D. on 02/09/2023 at 23:07
[2023-02-09 22:46] LABS: Add Manual Diff / Slide Review NO; Basophils Absolute Auto 100 /uL (0-100); Basophils Percent Auto 1.5 % (0-2); Eosinophils Absolute Auto 200 /uL (0-450); Eosinophils Percent Auto 4.2 % (2-4); Hematocrit 33.7 % (41-53); Hemoglobin 11.8 g/dL (13.5-17.5); Lymphocytes Absolute Auto 1700 /uL (1100-4500); Lymphocytes Percent Auto 31.1 % (25-40); Mean Corpuscular HGB Conc 35.1 % (30-36); Mean Corpuscular Hemoglobin 30.7 PG (26-34); Mean Corpuscular Volume 87.6 fL (80-100); Monocytes Absolute Auto 500 /uL (0-900); Monocytes Percent Auto 10.3 % (3-14); Neutrophils Absolute Auto 2800 /uL (1500-7000); Neutrophils Percent Auto 52.9 % (50-75); Platelet Count 151 X10^3/uL (150-400); Red Blood Cell Count 3.84 X10^6/uL (4.5-5.9); Red Cell Distribution Width 13.2 % (11.6-14.8); White Blood Cell Count 5.3 X10^3/uL (4.5-11.0)
[2023-02-09 23:13] LABS: Erythrocyte Sedimentation Rate 24 MM/HR (0-15)
[2023-02-09 23:43] LABS: Influenza A - CEPHEID Flu A NEGATIVE (NEGATIVE); Influenza B - CEPHEID Flu B NEGATIVE (NEGATIVE); Respiratory Syncytial Virus Negative (Negative)
[2023-02-09 23:44] LABS: COVID-19 CEPHEID 4-PLEX PCR Negative (Negative)
[2023-02-09 23:47] LABS: Alanine Aminotransferase 16 IU/L (<50); Albumin 3.9 g/dL (3.5-5.0); Albumin Globulin Ratio 1.3 (1.0-2.8); Alkaline Phosphatase 52 U/L (38-126); Aspartate Aminotransferase 19 IU/L (17-59); BUN Creatinine Ratio 25.2 (6-22); Bilirubin Total 0.2 mg/dL (0.2-1.3); Blood Urea Nitrogen 27 mg/dL (9-20); C-Reactive Protein Quant < 0.5 mg/dL (<1.0); Calcium 8.7 mg/dL (8.4-10.2); Carbon Dioxide 27 mmol/L (22-32); Chloride 105 mmol/L (98-107); Estimated Glomerular Filt Rate > 60 mL/min (>60); Globulin 2.9 g/dL (1.7-4.1); Glucose 113 mg/dL (80-110); HEMOLYSIS < 15 (0-50); Lipase 127 U/L (23-300); Magnesium 1.9 mg/dL (1.6-2.3); Sodium 139 mmol/L (137-145); Total Protein 6.8 g/dL (6.3-8.2)
[2023-02-10] VITALS: BP 122/59; PULSE 63; RESP 27; O2SAT 96
[2023-02-10 00:30] VITALS: BP 132/57; PULSE 63; RESP 18; O2SAT 96
[2023-02-10 01:00] VITALS: BP 139/60; PULSE 63; RESP 16; O2SAT 95
[2023-02-10 01:30] VITALS: BP 122/93; PULSE 65; RESP 20; O2SAT 97
== END 2023-02-10 01:37 | disposition home or self-care (01) ==
PROVIDERS: Emergency Provider Emergency Medicine; Family Provider Internal Medicine Cardiovascular Disease; PCP Family Medicine
DX: R51.9 Headache, unspecified (principal); I48.91 Unspecified atrial fibrillation
CPT/HCPCS: 0241U; 36415; 70450; 70496; 70498; 71045; 80053; 82550; 83690; 83735; 84484; 85025; 85651; 86140; 93005; 99284; Q9967

== ENCOUNTER 2023-05-30 01:27 | Inpatient (IN) | payer OTHER, SELFPAY ==
[2023-05-30] VITALS (27 sets, daily range): BP systolic 120–182; BP diastolic 55–88; PULSE 57–86; RESP 9–112; TEMP 35.9–37.2; O2SAT 84–98; BMI 26.6; BMI 26.4
--- NOTE | 2023-05-30 | DI.RAD.S_ITS ---
PROCEDURE: XR HIP W PEL IF DONE LT 2V INDICATIONS: LT HIP SURGERY TECHNIQUE: Fluoroscopic images were obtained during an operative procedure and submitted for interpretation following the completion of the procedure. COMPARISON: [facility], , XR HIP W PEL IF DONE LT 2V, 05/30/2023, 1:31. FINDINGS: These fluoroscopic images were performed for intraoperative localization. On these images, new hardware with plate and screw fixation can be seen along the lateral proximal left femur. Please correlate with intraoperative findings. IMPRESSION: Normal intraoperative examination. Dictated by: Won Morelos M.D. on 05/30/2023 at 18:37 Approved by: Won Morelos M.D. on 05/30/2023 at 18:38
--- NOTE | 2023-05-30 01:28 | DI.RAD.S_ITS ---
PROCEDURE: XR HIP W PEL IF DONE LT 2V INDICATIONS: LT hip pain after fall TECHNIQUE: AP pelvis and lateral view of the left hip acquired. COMPARISON: None. FINDINGS: Bones: Patient is status post bilateral hip arthroplasty, with hardware components in expected positions. Left lateral intertrochanteric fracture with 11 millimeters of distraction. Left femoral head arthroplasty component is asymmetrically distracted the acetabular cup. Right hip arthroplasty appears intact. The hip joint appears congruent. The visualized bony structures appear intact. Soft tissues: Overlying postoperative changes are noted. No suspicious soft tissue densities. IMPRESSION: 1. Left lateral intertrochanteric fracture with distraction. Left femoral head arthroplasty is mildly distracted compared to the right. 2. Right hip arthroplasty appears intact. Findings are concordant with preliminary interpretation provided by [facility]. Dictated by: Gilson Joshi M.D. on 05/30/2023 at 7:40 Approved by: Gilson Joshi M.D. on 05/30/2023 at 7:43
[2023-05-30] MEDS: ONDANSETRON 4 MG/2 ML INJ IV ×2 (01:41→17:12)
--- NOTE | 2023-05-30 02:11 | ED_ITS ---
HPI - Extremity Injury (Lower) General Chief Complaint: Extremity Injury, Lower Stated Complaint: fall left hip pain Time Seen by Provider: 05/30/23 01:27 Source: patient and EMS Mode of arrival: EMS History of Present Illness HPI Narrative: 87-year-old male here for evaluation of left hip pain. Patient states that approximately midnight he went outside to check on the tire of his 's car. He states that he tripped and fell forward. He did hit his head but he did land on his left hip. He is vomited a couple times but has no other headache or neck pain. Chest pain or shortness of breath. Pain is now localized to his left hip . He has had a left hip replacement but that was greater than 25 years ago. No other injuries from the event. Related Data Home Medications Medication Instructions Recorded Confirmed finasteride 1 mg tablet 1 mg PO DAILY 08/30/18 08/30/18 Allergies Allergy/AdvReac Type Severity Reaction Status Date / Time No Known Drug Allergies Allergy Verified 09/11/19 09:30 Review of Systems Constitutional Constitutional: Reports system reviewed and no additional complaints, except as documented Musculoskeletal Musculoskeletal: Reports system reviewed and no additional complaints, except as documented Integumentary/Breasts Skin/Breast: Reports system reviewed and no additional complaints, except as documented Neurologic Neurologic: Reports system reviewed and no additional complaints, except as documented Hematologic/Lymphatic On Anticoagulants: No Patient History Medical History (Updated 05/30/23 @ 02:42 by Hernandez Zaragoza DO) Benign prostatic hyperplasia History of colon polyps Hypertension Surgical History History of colonoscopy Social History household members: friend(s) Smoking Status: Former smoker Smoking Status: Former smoker alcohol intake frequency: a few times a week Alcohol type: beer Substance Use Type: does not use Exam Initial Vital Signs Initial Vital Signs: Vital Signs Pulse Rate 82 05/30/23 01:34 Pulse Oximetry 97 05/30/23 01:34 Const General: cooperative and comfortable HENMT Head: normal to inspection and normocephalic Neuro General: patient alert and patient awake Extrem Other: Discomfort to palpation of the left hemipelvis. Course Orders Ordered: ED Orders 05/30/23 01:28 XR hip w pel if done LT 2V Stat 05/30/23 02:00 Complete Blood Count AUTO DIFF Stat Comprehensive Metabolic Panel Stat 05/30/23 02:40 CT LE LT wo con Stat 05/30/23 02:44 Consult to Orthopedic Surgery Stat Discontinued Medications Ondansetron HCl (Ondansetron 4 Mg/2 Ml Inj) 4 mg IV NOW ONE Stop: 05/30/23 01:30 Last Admin: 05/30/23 01:41 Dose: 4 mg Documented By: ABDI Vital Signs Vital signs: Vital Signs - 8 hr 05/30/23 01:35 05/30/23 01:34 05/30/23 02:00 Pulse Rate 77 82 Respiratory Rate 22 Blood Pressure 182/88 H 140/67 Pulse Oximetry 96 97 Oxygen Delivery Method Room Air 05/30/23 02:00 Pulse Rate 77 Respiratory Rate Blood Pressure Pulse Oximetry 97 Oxygen Delivery Method MDM - Extremity Injury (Lower) Lab Data Attestation: I reviewed the patient's lab results. 05/30/23 02:00 05/30/23 02:00 Labs: Lab Results 05/30/23 05/30/23 Range/Units 02:00 02:00 WBC 7.3 (4.5-11.0) X10^3/uL RBC 3.15 L (4.5-5.9) X10^6/uL Hgb 7.7 L (13.5-17.5) g/dL Hct 23.7 L (41-53) % MCV 75.2 L (80-100) fL MCH 24.6 L (26-34) PG MCHC 32.7 (30-36) % RDW 17.1 H (11.6-14.8) % Plt Count 179 (150-400) X10^3/uL Neut % (Auto) 72.0 (50-75) % Lymph % (Auto) 16.0 L (25-40) % [place] % (Auto) 8.6 (3-14) % Eos % (Auto) 2.4 (2-4) % Baso % (Auto) 1.0 (0-2) % Neut # (Auto) 5200 (4206-1232) /uL Lymph # (Auto) 1200 (3379-2625) /uL [place] # (Auto) 600 (0-900) /uL Eos # (Auto) 200 (0-450) /uL Baso # (Auto) 100 (0-100) /uL Sodium 137 (137-145) mmol/L Potassium 4.2 (3.4-5.1) mmol/L Chloride 104 (98-107) mmol/L Carbon Dioxide 24 (22-32) mmol/L BUN 17 (9-20) mg/dL Creatinine 1.27 H (0.66-1.25) mg/dL Estimated GFR 55 L (>60) mL/min BUN/Creatinine Ratio 13.4 (6-22) Glucose 127 H (80-110) mg/dL Calcium 8.4 (8.4-10.2) mg/dL Total Bilirubin 0.2 (0.2-1.3) mg/dL AST 21 (17-59) IU/L ALT 14 (<50) IU/L Alkaline Phosphatase 52 (38-126) U/L Total Protein 6.8 (6.3-8.2) g/dL Albumin 3.9 (3.5-5.0) g/dL Globulin 2.9 (1.7-4.1) g/dL Albumin/Globulin Ratio 1.3 (1.0-2.8) Imaging Data Extremity x-ray #1: Radiologist's Impression: Left lateral intertrochanteric fracture with distraction approximately 9 mm of the left femoral head arthroplasty component MDM Narrative Medical decision making narrative: This was clearly a mechanical fall. Not on blood thinners. Has a left periprosthetic hip fracture. Discussed the case with Dr. Downing on-call for Orthopedic surgery who requested a CT scan of his pelvis that she will look at in the morning to make decisions about how to proceed. I then discussed the case with Dr. richards hospitalist on-call who will admit for further evaluation and treatment. Discussed need for admission with the patient and his . They expressed understanding and agreement. Discharge Plan Departure Patient Disposition: Admitted As Inpatient Clinical Impression: Periprosthetic fracture around internal prosthetic left hip joint Admit Date/Time: 05/30/23 02:59 Admit Provider: Hernnadez Richards
[2023-05-30 02:14] LABS: Add Manual Diff / Slide Review NO; Basophils Absolute Auto 100 /uL (0-100); Eosinophils Absolute Auto 200 /uL (0-450); Eosinophils Percent Auto 2.4 % (2-4); Hematocrit 23.7 % (41-53); Hemoglobin 7.7 g/dL (13.5-17.5); Lymphocytes Absolute Auto 1200 /uL (1100-4500); Mean Corpuscular HGB Conc 32.7 % (30-36); Mean Corpuscular Hemoglobin 24.6 PG (26-34); Mean Corpuscular Volume 75.2 fL (80-100); Monocytes Absolute Auto 600 /uL (0-900); Monocytes Percent Auto 8.6 % (3-14); Neutrophils Absolute Auto 5200 /uL (1500-7000); Platelet Count 179 X10^3/uL (150-400); Red Blood Cell Count 3.15 X10^6/uL (4.5-5.9); Red Cell Distribution Width 17.1 % (11.6-14.8); White Blood Cell Count 7.3 X10^3/uL (4.5-11.0)
[2023-05-30 02:19] LABS: Alanine Aminotransferase 14 IU/L (<50); Albumin 3.9 g/dL (3.5-5.0); Albumin Globulin Ratio 1.3 (1.0-2.8); Alkaline Phosphatase 52 U/L (38-126); Aspartate Aminotransferase 21 IU/L (17-59); BUN Creatinine Ratio 13.4 (6-22); Bilirubin Total 0.2 mg/dL (0.2-1.3); Blood Urea Nitrogen 17 mg/dL (9-20); Calcium 8.4 mg/dL (8.4-10.2); Carbon Dioxide 24 mmol/L (22-32); Chloride 104 mmol/L (98-107); Estimated Glomerular Filt Rate 55 mL/min (>60); Globulin 2.9 g/dL (1.7-4.1); Glucose 127 mg/dL (80-110); HEMOLYSIS < 15 (0-50); Potassium 4.2 mmol/L (3.4-5.1); Sodium 137 mmol/L (137-145); Total Protein 6.8 g/dL (6.3-8.2)
--- NOTE | 2023-05-30 02:40 | DI.CT.S_ITS ---
PROCEDURE: CT LE LT W CON INDICATIONS: LT periprosthetic proximal femur fracture TECHNIQUE: Noncontrast 3 mm axial sections acquired through the bony pelvis. Additional 3 mm axial sections acquired through the symptomatic hip joint, with coronal and sagittal reformats. COMPARISON: None. FINDINGS: Image quality: Excellent. Bones: Intertrochanteric fracture extending along the proximal aspect of the left hip arthroplasty with displacement up to 15 millimeters. The hardware itself appears intact. The femoral head component of the hardware sits asymmetrically within the acetabular component with mild superior displacement. Decreased osseous mineralization. Degenerative changes of the visualized lumbar spine. Soft tissues: Subcutaneous edema surrounding fracture. No large hematoma. Atherosclerotic vascular calcifications are present. Intrapelvic contents are otherwise grossly unremarkable. IMPRESSION: 1. Left intratrochanteric fracture around the proximal left hip arthroplasty hardware with displacement. The hardware itself appears intact. 2. The left femoral head component of the hardware sits asymmetrically within acetabular component with mild superior displacement. 3. No other acute fractures are seen. Mild surrounding edema without large hematoma. Dictated by: Gilson Joshi M.D. on 05/30/2023 at 7:49 Approved by: Gilson Joshi M.D. on 05/30/2023 at 7:55
[2023-05-30] MEDS: SODIUM CHLORIDE 0.45% 1,000 ML 100 ML IV (04:53)
--- NOTE | 2023-05-30 05:03 | P.HP_ITS ---
History of Present Illness History of Present Illness Date Patient Seen: 05/30/23 Time Patient Seen: 05:03 Chief complaint: fall left hip pain Narrative: The pt is a very nice gentleman who was walking in his garage and tripped and fell landing on his left hip. He has bilat hip replacements about 25 years ago and also repots that he has been having difficulty with dizziness and lightheadedness over the past month. Jf had a Holter monitor which did reveal some a-fib but also Ventricular fib but was asymptomatic during this episodes. THey have only gone to their primary care provider, a PA who has referred him a software recruiter whom he has not seen yet. The pt also is currently being worked up for chronic anemia and is also scheduled to see a GI specialist in the future. [facility] Medical History (Updated 05/30/23 @ 05:14 by Hernandez Richards MD) Benign prostatic hyperplasia History of colon polyps Hypertension Surgical History History of colonoscopy Social History household members: spouse and friend(s) Smoking Status: Former smoker Meds Home Medications and Allergies Home Medications Medication Instructions Recorded Confirmed Type atorvastatin 20 mg tablet 20 mg PO ONCE PM cholesterol 05/30/23 05/30/23 History escitalopram oxalate 10 mg tablet 10 mg PO DAILY 05/30/23 05/30/23 History losartan 100 mg tablet 100 mg PO DAILY 05/30/23 05/30/23 History Allergies Allergy/AdvReac Type Severity Reaction Status Date / Time No Known Drug Allergies Allergy Verified 09/11/19 09:30 Review of Systems Review of Systems Narrative: negative except what is listed in the HPI Exam Vital Signs (past 8 hours): - 05/30/23 01:35 05/30/23 01:34 05/30/23 02:00 Temperature Pulse Rate 77 82 Respiratory Rate 22 Blood Pressure 182/88 H 140/67 Pulse Oximetry 96 97 Oxygen Delivery Method Room Air Oxygen Flow Rate 05/30/23 02:00 05/30/23 02:30 05/30/23 02:30 Temperature Pulse Rate 77 72 Respiratory Rate Blood Pressure 141/66 H Pulse Oximetry 97 97 Oxygen Delivery Method Oxygen Flow Rate 05/30/23 03:00 05/30/23 03:00 05/30/23 03:55 Temperature 97.9 F Pulse Rate 76 80 Respiratory Rate 18 Blood Pressure 123/62 145/59 H Pulse Oximetry 96 97 Oxygen Delivery Method Oxygen Flow Rate 0 05/30/23 03:08 Temperature Pulse Rate Respiratory Rate Blood Pressure Pulse Oximetry 97 Oxygen Delivery Method Room Air Oxygen Flow Rate Oxygen Delivery Method Room Air Oxygen Flow Rate 0 Const General: cooperative and healthy appearing Resp Auscultation: clear to auscultation bilaterally Cardio Rate: regular rate Rhythm: regular rhythm GI Inspection: obesity Auscultation: normal bowel sounds Objective Labs 05/30/23 02:00 05/30/23 02:00 Labs: Laboratory Results - last 24 hr 05/30/23 05/30/23 02:00 02:00 WBC 7.3 RBC 3.15 L Hgb 7.7 L Hct 23.7 L MCV 75.2 L MCH 24.6 L MCHC 32.7 RDW 17.1 H Plt Count 179 Neut % (Auto) 72.0 Lymph % (Auto) 16.0 L [place] % (Auto) 8.6 Eos % (Auto) 2.4 Baso % (Auto) 1.0 Neut # (Auto) 5200 Lymph # (Auto) 1200 [place] # (Auto) 600 Eos # (Auto) 200 Baso # (Auto) 100 Sodium 137 Potassium 4.2 Chloride 104 Carbon Dioxide 24 BUN 17 Creatinine 1.27 H Estimated GFR 55 L BUN/Creatinine Ratio 13.4 Glucose 127 H Calcium 8.4 Total Bilirubin 0.2 AST 21 ALT 14 Alkaline Phosphatase 52 Total Protein 6.8 Albumin 3.9 Globulin 2.9 Albumin/Globulin Ratio 1.3 Assessment & Plan Assessment and plan (1) Periprosthetic fracture around internal prosthetic left hip joint: Status: Acute (2) Ventricular arrhythmia: Status: Acute (3) Anemia: Status: Acute Plan will admit the pt for surgical correction of the periprosthetic fracture of the left hip. discussed the case with the ER provider, ortho has been consulted, Dr. Osborne, IV pain meds ordered, currently made NPO, on IVF, place on telemetry. The pt is not having symptoms with exercise and probably does not need a stress test prior to surgery. CBC ordered daily due to chronic anemia.
--- NOTE | 2023-05-30 05:29 | P.HP_ITS ---
History of Present Illness History of Present Illness Date Patient Seen: 05/30/23 Time Patient Seen: 05:30 Chief complaint: fall left hip pain Narrative: The pt is a very nice gentleman who was walking in his garage and tripped and fell landing on his left hip. He has bilat hip replacements about 25 years ago and also repots that he has been having difficulty with dizziness and lightheadedness over the past month. Jf had a Holter monitor which did reveal some a-fib but also Ventricular fib but was asymptomatic during this episodes. 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 The pt also is currently being worked up for chronic anemia and is also scheduled to see a GI specialist in the future. [facility] Medical History (Updated 05/30/23 @ 05:14 by Hernandez Richards MD) Benign prostatic hyperplasia History of colon polyps Hypertension Surgical History History of colonoscopy Social History household members: spouse and friend(s) Smoking Status: Former smoker Meds Home Medications and Allergies Home Medications Medication Instructions Recorded Confirmed Type atorvastatin 20 mg tablet 20 mg PO ONCE PM cholesterol 05/30/23 05/30/23 History escitalopram oxalate 10 mg tablet 10 mg PO DAILY 05/30/23 05/30/23 History losartan 100 mg tablet 100 mg PO DAILY 05/30/23 05/30/23 History Allergies Allergy/AdvReac Type Severity Reaction Status Date / Time No Known Drug Allergies Allergy Verified 09/11/19 09:30 Exam Vital Signs (past 8 hours): - 05/30/23 01:35 05/30/23 01:34 05/30/23 02:00 Temperature Pulse Rate 77 82 Respiratory Rate 22 Blood Pressure 182/88 H 140/67 Pulse Oximetry 96 97 Oxygen Delivery Method Room Air Oxygen Flow Rate 05/30/23 02:00 05/30/23 02:30 05/30/23 02:30 Temperature Pulse Rate 77 72 Respiratory Rate Blood Pressure 141/66 H Pulse Oximetry 97 97 Oxygen Delivery Method Oxygen Flow Rate 05/30/23 03:00 05/30/23 03:00 05/30/23 03:55 Temperature 97.9 F Pulse Rate 76 80 Respiratory Rate 18 Blood Pressure 123/62 145/59 H Pulse Oximetry 96 97 Oxygen Delivery Method Oxygen Flow Rate 0 05/30/23 03:08 Temperature Pulse Rate Respiratory Rate Blood Pressure Pulse Oximetry 97 Oxygen Delivery Method Room Air Oxygen Flow Rate Oxygen Delivery Method Room Air Oxygen Flow Rate 0 Objective Labs 05/30/23 02:00 05/30/23 02:00 Labs: Laboratory Results - last 24 hr 05/30/23 05/30/23 02:00 02:00 WBC 7.3 RBC 3.15 L Hgb 7.7 L Hct 23.7 L MCV 75.2 L MCH 24.6 L MCHC 32.7 RDW 17.1 H Plt Count 179 Neut % (Auto) 72.0 Lymph % (Auto) 16.0 L [place] % (Auto) 8.6 Eos % (Auto) 2.4 Baso % (Auto) 1.0 Neut # (Auto) 5200 Lymph # (Auto) 1200 [place] # (Auto) 600 Eos # (Auto) 200 Baso # (Auto) 100 Sodium 137 Potassium 4.2 Chloride 104 Carbon Dioxide 24 BUN 17 Creatinine 1.27 H Estimated GFR 55 L BUN/Creatinine Ratio 13.4 Glucose 127 H Calcium 8.4 Total Bilirubin 0.2 AST 21 ALT 14 Alkaline Phosphatase 52 Total Protein 6.8 Albumin 3.9 Globulin 2.9 Albumin/Globulin Ratio 1.3
--- NOTE | 2023-05-30 05:40 | PC.ADMIT ---
[address] [place] [address] Admission Note: Patient admitted to AC unit from ED by gurney transport. Transferred to bed via slideboard transfer. A/O x 4, able to make needs known. Denies pain. NPO at this time. 1/2 NS running at 100ml/hr. Spouse at bedside. Bed low and locked. Bed alarm on and call light within reach. The patient,Oscar Figueroa,87 y/o, was given written information regarding hospital policies, unit procedures and contact persons. Patient's smoking status: Former smoker. Vital Signs - 8 hr 05/30/23 01:35 05/30/23 01:34 05/30/23 02:00 Temperature Pulse Rate 77 82 Respiratory Rate 22 Blood Pressure 182/88 H 140/67 Pulse Oximetry 96 97 Oxygen Delivery Method Room Air Oxygen Flow Rate 05/30/23 02:00 05/30/23 02:30 05/30/23 02:30 Temperature Pulse Rate 77 72 Respiratory Rate Blood Pressure 141/66 H Pulse Oximetry 97 97 Oxygen Delivery Method Oxygen Flow Rate 05/30/23 03:00 05/30/23 03:00 05/30/23 03:55 Temperature 97.9 F Pulse Rate 76 80 Respiratory Rate 18 Blood Pressure 123/62 145/59 H Pulse Oximetry 96 97 Oxygen Delivery Method Oxygen Flow Rate 0 05/30/23 03:08 Temperature Pulse Rate Respiratory Rate Blood Pressure Pulse Oximetry 97 Oxygen Delivery Method Room Air Oxygen Flow Rate
[2023-05-30 06:17] LABS: Add Manual Diff / Slide Review NO; Basophils Absolute Auto 100 /uL (0-100); Basophils Percent Auto 0.8 % (0-2); Eosinophils Absolute Auto 100 /uL (0-450); Eosinophils Percent Auto 0.9 % (2-4); Hematocrit 24.1 % (41-53); Hemoglobin 7.8 g/dL (13.5-17.5); Lymphocytes Absolute Auto 1200 /uL (1100-4500); Lymphocytes Percent Auto 13.6 % (25-40); Mean Corpuscular HGB Conc 32.3 % (30-36); Mean Corpuscular Hemoglobin 24.2 PG (26-34); Mean Corpuscular Volume 74.8 fL (80-100); Monocytes Absolute Auto 700 /uL (0-900); Monocytes Percent Auto 8.1 % (3-14); Neutrophils Absolute Auto 6600 /uL (1500-7000); Neutrophils Percent Auto 76.6 % (50-75); Platelet Count 187 X10^3/uL (150-400); Red Blood Cell Count 3.22 X10^6/uL (4.5-5.9); Red Cell Distribution Width 17.1 % (11.6-14.8); White Blood Cell Count 8.6 X10^3/uL (4.5-11.0)
[2023-05-30 06:29] LABS: BUN Creatinine Ratio 13.7 (6-22); Blood Urea Nitrogen 16 mg/dL (9-20); Calcium 8.6 mg/dL (8.4-10.2); Carbon Dioxide 25 mmol/L (22-32); Chloride 103 mmol/L (98-107); Estimated Glomerular Filt Rate > 60 mL/min (>60); Glucose 122 mg/dL (80-110); HEMOLYSIS < 15 (0-50); Potassium 4.3 mmol/L (3.4-5.1); Sodium 138 mmol/L (137-145)
--- NOTE | 2023-05-30 07:58 | P.HP_ITS ---
History of Present Illness History of Present Illness Date Patient Seen: 05/30/23 Time Patient Seen: 05:30 Chief complaint: fall left hip pain Narrative: The pt is a very nice gentleman who was walking in his garage and tripped and fell landing on his left hip. He has bilat hip replacements about 25 years ago and also repots that he has been having difficulty with dizziness and lightheadedness over the past month. Jf had a Holter monitor which did reveal some a-fib but also Ventricular fib but was asymptomatic during this episodes. 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 The pt also is currently being worked up for chronic anemia and is also scheduled to see a GI specialist in the future. [facility] Medical History (Updated 05/30/23 @ 08:42 by Nida Troy MD) Benign prostatic hyperplasia History of colon polyps Hypertension Surgical History History of colonoscopy Social History household members: spouse and significant other Smoking Status: Former smoker Meds Home Medications and Allergies Home Medications Medication Instructions Recorded Confirmed Type atorvastatin 20 mg tablet 20 mg PO ONCE PM cholesterol 05/30/23 05/30/23 History escitalopram oxalate 10 mg tablet 10 mg PO DAILY 05/30/23 05/30/23 History losartan 100 mg tablet 100 mg PO DAILY 05/30/23 05/30/23 History Allergies Allergy/AdvReac Type Severity Reaction Status Date / Time No Known Drug Allergies Allergy Verified 09/11/19 09:30 Review of Systems Review of Systems Narrative: negative except what is listed in the HPI Exam Vital Signs (past 8 hours): - 05/30/23 01:35 05/30/23 01:34 05/30/23 02:00 Temperature Pulse Rate 77 82 Respiratory Rate 22 Blood Pressure 182/88 H 140/67 Pulse Oximetry 96 97 Oxygen Delivery Method Room Air Oxygen Flow Rate 05/30/23 02:00 05/30/23 02:30 05/30/23 02:30 Temperature Pulse Rate 77 72 Respiratory Rate Blood Pressure 141/66 H Pulse Oximetry 97 97 Oxygen Delivery Method Oxygen Flow Rate 05/30/23 03:00 05/30/23 03:00 05/30/23 03:55 Temperature 97.9 F Pulse Rate 76 80 Respiratory Rate 18 Blood Pressure 123/62 145/59 H Pulse Oximetry 96 97 Oxygen Delivery Method Oxygen Flow Rate 0 05/30/23 03:08 Temperature Pulse Rate Respiratory Rate Blood Pressure Pulse Oximetry 97 Oxygen Delivery Method Room Air Oxygen Flow Rate Oxygen Delivery Method Room Air Oxygen Flow Rate 0 Narrative Exam Narrative: GEN: no acute distress HEENT: moist mucous membranes, PERRL NECK: trachea midline, no JVD CV: regular rate and rhythm, no murmurs PULM: clear bilaterally ABD: soft, nontender, nondistended, no organomegaly EXT: warm and well perfused with no edema NEURO: awake, alert, oriented, no focal deficits Objective Labs 05/30/23 05:58 05/30/23 05:58 Labs: Laboratory Results - last 24 hr 05/30/23 05/30/23 05/30/23 02:00 02:00 05:58 WBC 7.3 8.6 RBC 3.15 L 3.22 L Hgb 7.7 L 7.8 L Hct 23.7 L 24.1 L MCV 75.2 L 74.8 L MCH 24.6 L 24.2 L MCHC 32.7 32.3 RDW 17.1 H 17.1 H Plt Count 179 187 Neut % (Auto) 72.0 76.6 H Lymph % (Auto) 16.0 L 13.6 L [place] % (Auto) 8.6 8.1 Eos % (Auto) 2.4 0.9 L Baso % (Auto) 1.0 0.8 Neut # (Auto) 5200 6600 Lymph # (Auto) 1200 1200 [place] # (Auto) 600 700 Eos # (Auto) 200 100 Baso # (Auto) 100 100 Sodium 137 Potassium 4.2 Chloride 104 Carbon Dioxide 24 BUN 17 Creatinine 1.27 H Estimated GFR 55 L BUN/Creatinine Ratio 13.4 Glucose 127 H Calcium 8.4 Total Bilirubin 0.2 AST 21 ALT 14 Alkaline Phosphatase 52 Total Protein 6.8 Albumin 3.9 Globulin 2.9 Albumin/Globulin Ratio 1.3 05/30/23 05:58 WBC RBC Hgb Hct MCV MCH MCHC RDW Plt Count Neut % (Auto) Lymph % (Auto) [place] % (Auto) Eos % (Auto) Baso % (Auto) Neut # (Auto) Lymph # (Auto) [place] # (Auto) Eos # (Auto) Baso # (Auto) Sodium 138 Potassium 4.3 Chloride 103 Carbon Dioxide 25 BUN 16 Creatinine 1.17 Estimated GFR > 60 BUN/Creatinine Ratio 13.7 Glucose 122 H Calcium 8.6 Total Bilirubin AST ALT Alkaline Phosphatase Total Protein Albumin Globulin Albumin/Globulin Ratio Assessment & Plan Assessment and plan (1) Periprosthetic fracture around internal prosthetic left hip joint: Status: Acute (2) Ventricular arrhythmia: Status: Acute (3) Anemia: Status: Acute Plan will admit the pt for surgical correction of the periprosthetic fracture of the left hip. discussed the case with the ER provider, ortho has been consulted, Dr. Osborne, IV pain meds ordered, currently made NPO, on IVF, place on telemetry. Echo ordered. Started metoprolol 25mg XL daily for recent NSVT on holter monitor. Anemia stable but may need PRBC after surgery due to blood loss.
--- NOTE | 2023-05-30 08:17 | DI.ECHO.S_ITS ---
[facility]---------+ [facility] +---------+ : : [address] : : : : [id number] : : : : Phone: [phone] Echocardiogram Report + + :Name: OBED LINDQUIST Study Date: 05/30/2023 Height: 69 in : :[facility] ReadingLocation: Weight: 178 lb : : Gender: Male BSA: 2.0 m2 : :: 1935 Age: 87 yrs BP: 138/60 mmHg: :Reason For Study: ATRIAL FIBRILLATION, PRE-OP : :Ordering Physician: JANNY, : :ALFONSO Piña Performed By: Sabi Teresa : :Referring: ALFONSO SOLIMAN : + + Interpretation Summary The ejection fraction is estimated to be 50-55%. Diastolic function could not be accurately assessed due to unobtainable data. The right ventricle is normal in size and function. There is moderate aortic stenosis. There is mild aortic regurgitation. Pulmonary artery pressures cannot be estimated because of the lack of a measurable TR jet velocity. The ascending aorta is mildly enlarged, 3.5 cm. Procedure: A two-dimensional transthoracic echocardiogram with color flow and Doppler was performed. The study quality was technically difficult. There is no prior echocardiogram noted for this patient. Patient was scanned in a mostly supine position. A contrast injection of Definity was performed to improve assessment of LV function. The patient had occasional PVCs during the exam. The patient was in sinus rhythm with heart rates between 52-68 bpm during the exam. Left Ventricle: The left ventricle is normal in size and wall thickness. The ejection fraction is estimated to be 50-55%. Diastolic function could not be accurately assessed due to unobtainable data. Right Ventricle: The right ventricle is normal in size and function. Atria: The left atrium is not well visualized. Right atrial size is normal. There is no Doppler evidence for an interatrial shunt. Mitral Valve: There is mild mitral annular calcification. The mitral valve leaflets are mildly calcified. There is no mitral regurgitation noted. Aortic Valve: The aortic valve is severely calcified. There is severely reduced leaflet mobility. There is moderate aortic stenosis. The peak aortic velocity is 3.5 m/sec. The aortic valve mean gradient is 29 mmHg. The calculated aortic valve area is 1.1 cm2. There is mild aortic regurgitation. Tricuspid Valve: The tricuspid valve is normal in structure and function. There is trace tricuspid regurgitation. Pulmonary artery pressures cannot be estimated because of the lack of a measurable TR jet velocity. Pulmonic Valve: The pulmonic valve is not well visualized. There is no pulmonic valvular regurgitation. Great Vessels: The aortic root is normal size. The ascending aorta is mildly enlarged. The IVC is of normal diameter and collapses greater than 50% with a sniff. This suggests a low right atrial pressure of 3 mm Hg. Pericardium/ Pleura There is no pericardial effusion. There is no pleural effusion. MMode/2D Measurements & Calculations LVIDd: 5.6 cm LVOT diam: 2.4 cm LVIDs: 4.5 cm Ao root diam: 3.4 cm FS: 19.6 % asc Aorta Diam: 3.5 cm EPSS: 0.86 cm Ao Arch Diam (Prox Trans): 3.0 cm IVSd: 0.86 cm LVPWd: 0.78 cm LV dia. diameter/BSA (cm/m^2): 2.9 LV sys. diameter/BSA (cm/m^2): 2.3 LA A4 area: 16.2 cm2 RA long axis: 5.2 cm LA length (vol): 4.9 cm RA area: 18.0 cm2 RA vol: 52.8 ml RA : 26.9 ml/m2 IVC diam: 1.2 cm RVD1 (basal): 3.8 cm RVD2 (mid): 2.7 cm TAPSE: 2.2 cm Doppler Measurements & Calculations Ao V2 max: 350.4 cm/sec LVOT Max Juanjo: 87.9 cm/sec Ao V2 mean: 262.2 cm/sec LV V1 max P.1 mmHg Ao max P.7 mmHg LV V1 VTI: 21.6 cm Ao mean P.4 mmHg KEIRY(I,D): 1.3 cm2 Ao V2 VTI: 76.1 cm KEIRY(V,D): 1.1 cm2 sev ratio: 0.28 KEIRY indexed to BSA (cm^2/m^2): 0.64 MV E max juanjo: 82.0 cm/sec PA V2 max: 97.7 cm/sec MV A max juanjo: 101.0 cm/sec PA V2 mean: 74.7 cm/sec MV E/A: 0.81 PA mean P.4 mmHg Med Peak E' Juanjo: 5.7 cm/sec PA pr(Accel): 36.2 mmHg E/E' med: 14.5 Lat Peak E' Juanjo: 8.8 cm/sec E/E' lat: 9.3 E/e' average: 11.9 MV dec time: 0.31 sec Pulm A Revs Juanjo: 21.1 cm/sec SV(LVOT): 96.2 ml Pulm A Revs Dur: 0.13 sec Reading Physician:01:38 PM
[2023-05-30] MEDS: METOPROLOL ER 25 MG TABLET PO (08:33)
--- NOTE | 2023-05-30 08:35 | P.CONS_ITS ---
History of Present Illness Consult details Date Patient Seen: 05/30/23 Time Patient Seen: 08:35 Chief complaint: fall left hip pain Reason for consult: Left periprosthetic hip fracture Requesting provider: Hernandez Zaragoza Narrative: Patient is an 87-year-old male with chronic anemia that had a ground level fall in his garage. States he is trip that he is also been having some lightheaded episodes over the last few months. He is being worked up for positive stool guaiac but has not had a colonoscopy yet. He has a history of bilateral hip replacements performed 24 and 25 years ago. States he is had no problems with these. Does not typically use any assistive devices. Active community ambulator and does dancing. Denies other injury or loss of consciousness in the fall. Does complain of left hip pain. Meds Home Medications and Allergies Home Medications Medication Instructions Recorded Confirmed Type atorvastatin 20 mg tablet 20 mg PO ONCE PM cholesterol 05/30/23 05/30/23 History escitalopram oxalate 10 mg tablet 10 mg PO DAILY 05/30/23 05/30/23 History losartan 100 mg tablet 100 mg PO DAILY 05/30/23 05/30/23 History Allergies Allergy/AdvReac Type Severity Reaction Status Date / Time No Known Drug Allergies Allergy Verified 09/11/19 09:30 Review of Systems Review of Systems Narrative: History of positive stool guaiac. Chronic anemia pending GI workup and colono scopy Also had a arrhythmia and recent Holter monitor trial. Has not seen cardiology. ROS: Yes All systems reviewed with the patient and are negative except as oth erwise documented Exam Vital Signs (past 8 hours): - 05/30/23 01:35 05/30/23 01:34 05/30/23 02:00 Temperature Pulse Rate 77 82 Respiratory Rate 22 Blood Pressure 182/88 H 140/67 Pulse Oximetry 96 97 Oxygen Delivery Method Room Air Oxygen Flow Rate 05/30/23 02:00 05/30/23 02:30 05/30/23 02:30 Temperature Pulse Rate 77 72 Respiratory Rate Blood Pressure 141/66 H Pulse Oximetry 97 97 Oxygen Delivery Method Oxygen Flow Rate 05/30/23 03:00 05/30/23 03:00 05/30/23 03:55 Temperature 97.9 F Pulse Rate 76 80 Respiratory Rate 18 Blood Pressure 123/62 145/59 H Pulse Oximetry 96 97 Oxygen Delivery Method Oxygen Flow Rate 0 05/30/23 03:08 05/30/23 07:08 05/30/23 07:08 Temperature 96.9 F L Pulse Rate 69 Respiratory Rate 17 Blood Pressure 140/63 Pulse Oximetry 97 96 98 Oxygen Delivery Method Room Air Room Air Oxygen Flow Rate 0 05/30/23 07:08 05/30/23 08:33 Temperature Pulse Rate Respiratory Rate 18 Blood Pressure 140/63 Pulse Oximetry Oxygen Delivery Method Oxygen Flow Rate Oxygen Delivery Method Room Air Oxygen Flow Rate 0 Narrative Exam Narrative: General exam is alert oriented male in no acute distress. Lying in bed. is also at bedside HEENT exam normocephalic atraumatic Respiratory lungs clear to auscultation bilaterally. Unlabored on room air Upper extremities moving bilateral upper extremities without limitation. No tenderness. Lower extremities moves right lower extremity without limitation. 5/5 dorsiflexion plantar flexion Left lower extremity demonstrates 5/5 dorsiflexion plantar flexion. Palpable dorsalis pedis pulse. Compartments soft. Well-healed posterolateral scar from previous hip arthroplasty. Tenderness at the lateral left hip. No wounds. Limited range of motion and exam due to known fracture. Objective Imaging AP pelvis and left lateral hip: My impression: AP pelvis and left lateral hip demonstrate moderately displaced large greater trochanteric periprosthetic fracture. Left Hip prosthesis appears stable. Stable appearance right hip prosthesis CT scan - pelvis: My impression: Large greater trochanteric fracture with extension posteriorly to the medial cortex. Hip arthroplasty appears intact and well fixed. Little over 1 cm of displacement greater trochanteric fracture Radiologist's impression: 1. Left?intratrochanteri c?fracture?around?the?proximal?left?hip?arthroplasty?hardware?with?displacement. ??The?hardware?itself?appears?intact. 2.The?left?femoral?head?component?of?the?hardware?sits?asymmetrically?within?violeta tabular?component?with?mild?superior?displacement. 3.No?other?acute?fractures?are?seen.??Mild?surround ing?edema?without?large?hematoma Labs 05/30/23 05:58 05/30/23 05:58 Labs: Laboratory Results - last 24 hr 05/30/23 05/30/23 05/30/23 02:00 02:00 05:58 WBC 7.3 8.6 RBC 3.15 L 3.22 L Hgb 7.7 L 7.8 L Hct 23.7 L 24.1 L MCV 75.2 L 74.8 L MCH 24.6 L 24.2 L MCHC 32.7 32.3 RDW 17.1 H 17.1 H Plt Count 179 187 Neut % (Auto) 72.0 76.6 H Lymph % (Auto) 16.0 L 13.6 L Cassia % (Auto) 8.6 8.1 Eos % (Auto) 2.4 0.9 L Baso % (Auto) 1.0 0.8 Neut # (Auto) 5200 6600 Lymph # (Auto) 1200 1200 Cassia # (Auto) 600 700 Eos # (Auto) 200 100 Baso # (Auto) 100 100 Sodium 137 Potassium 4.2 Chloride 104 Carbon Dioxide 24 BUN 17 Creatinine 1.27 H Estimated GFR 55 L BUN/Creatinine Ratio 13.4 Glucose 127 H Calcium 8.4 Magnesium Total Bilirubin 0.2 AST 21 ALT 14 Alkaline Phosphatase 52 Total Protein 6.8 Albumin 3.9 Globulin 2.9 Albumin/Globulin Ratio 1.3 05/30/23 05/30/23 05:58 05:58 WBC RBC Hgb Hct MCV MCH MCHC RDW Plt Count Neut % (Auto) Lymph % (Auto) Cassia % (Auto) Eos % (Auto) Baso % (Auto) Neut # (Auto) Lymph # (Auto) Cassia # (Auto) Eos # (Auto) Baso # (Auto) Sodium 138 Potassium 4.3 Chloride 103 Carbon Dioxide 25 BUN 16 Creatinine 1.17 Estimated GFR > 60 BUN/Creatinine Ratio 13.7 Glucose 122 H Calcium 8.6 Magnesium 2.0 Total Bilirubin AST ALT Alkaline Phosphatase Total Protein Albumin Globulin Albumin/Globulin Ratio [facility] Medical History (Updated 05/30/23 @ 08:42 by Nida Troy MD) Benign prostatic hyperplasia History of colon polyps Hypertension Surgical History History of colonoscopy Social History household members: spouse and friend(s) Tobacco & Substance Use Smoking Status: Former smoker Assessment & Plan Assessment and plan (1) Periprosthetic fracture around internal prosthetic left hip joint: Status: Acute (2) Acute on chronic anemia: Status: Acute Plan Patient has a left hip periprosthetic fracture mostly involving the greater trochanter with moderate displacement this does extend medially on the posterior part. Discussed the nature of these fractures and abductor insertions creating a deforming force with ambulation and risk for a substantial limp with conservative treatment. For his moderately displaced fracture recommend open reduction internal fixation with a cable plate to help avoid further displacement and chronic limp. Hip prosthesis itself appears in stable alignment and I do not anticipate need for revision of this. The risks and benefits of the procedure have been discussed with the patient and given the opportunity to ask questions. The risks of surgery include but are not limited to infection, malunion, nonunion, persistence of pain, damage to nerves and blood vessels, posttraumatic arthritis, DVT, PE, cardiopulmonary complications and . The patient expressed a thorough understanding of the risks and benefits of surgery and has elected to proceed. Consent was signed. The patient is NPO. He will be weightbear as tolerated follow with the procedure and expected to use assistive devices for about 6 weeks including a walker and then weaning to a cane. He is acute on chronic blood loss anemia. Has a history of a positive stool guaiac and has not completed GI workup. Discussed additional acute blood loss anemia from the fracture. Right now his vital signs are stable but he may have more blood loss with surgery and if becomes symptomatic may require transfusion. I discussed this with the patient and his . They understand. Plan for surgery later today, as long as medical optimization completed. He will be NPO. Medical decision-making decision for orthopedic surgery. Requirement for inpatient hospitalization due to periprosthetic hip fracture and acute on chronic blood loss anemia Assessment & Plan narrative: See above Time Spent With Patient Time with patient: 50 to 69 minutes with 50% spent counseling/coordinating care
--- NOTE | 2023-05-30 09:57 | PC.NURSE ---
Pt resting quietly, denies discomfort at this time,. IVF infusing via pump into LAC as per orders. Remains NPO for surgery this afternoon Call light w/in reach, pt calls appropriately for needs.
--- NOTE | 2023-05-30 11:54 | CM.DANOTE ---
Initial Discharge Planning Note: Case reviewed, met with patient and spouse. Introduced self and role. Payer: [facility] and self pay. PCP: Davide MAE ([facility]) 87 year old fell on left hip and sustained a periprosthetic fracture. History of bilateral THRs 25 years ago. History of some Afib and ventricular fib in past apparently, experiencing light headedness past month. Plan is for surgery today. Patient Lives in [place] with his supportive spouse Blanca and is independent in his ADLs. Discussed different discharge plans: Home with Home Health, SNF rehab, Home with assistance and outpatient PT. PLAN: Follow up tomorrow for needs. SEJ Discharge Planning/Care Management Advanced directive, confirm from FAMILY Start: 05/30/23 04:10 Freq: Q24H Status: Active Protocol: Document 05/30/23 04:10 (Rec: 05/30/23 05:35 [id number]) Advance Directive, confirm on record Time 03:50 Person contacted Patient/ Spouse Copy received No CM Discharge Assessment Start: 05/30/23 11:48 Freq: Status: Active Protocol: Document 05/30/23 11:48 (Rec: 05/30/23 11:54 [id number]) Discharge Planning Assessment Assigned Social Group Worker Faye Lechuga RN/DCP Advance Directives? Yes Advance Directives on File No History Provided By Patient,Significant Other Prior Living Arrangements House Household Members spouse,significant other Type of transporation used prior to Drives own vehicle admit Independent with ADL's Yes Is patient alert and oriented? Yes Needs Assistance With Home Chores / Shopping Caregiver for Another No Barriers to Discharge No Additional Comment SNF vs Home with HH PT vs just outpatient PT Review Status In Process Next Review Type Continued Stay Review
[2023-05-30] MEDS: LACTATED RINGERS 1,000 ML 42 ML IV ×2 (13:39→16:16)
[2023-05-30] MEDS: CEFAZOLIN 2 GM/100 ML PREMIX 100 ML IV ×2 (14:32→21:18)
[2023-05-30] MEDS: BUPIVACAINE 0.5% (PF) 30 ML, EPINEPHrine 0.15 MG INJ (15:27)
[2023-05-30] MEDS: TRANEXAMIC ACID 1,000 MG in SODIUM CHLORIDE 0.9% 100 ML 200 MG IV ×2 (15:28→16:07)
--- NOTE | 2023-05-30 16:47 | P.OP_ITS ---
Operative Date/Time/Diagnoses Date of procedure: 05/30/23 Time of procedure: 14:30 Pre-op diagnosis: Periprosthetic hip fracture left hip Acute on chronic anemia Post-op diagnosis: same Procedure & Clinicians Procedure: Open reduction internal fixation greater tuberosity fracture periprosthetic left hip fracture CPT code 46419 Same procedure as scheduled: Yes Indications: Patient is an 87-year-old male with a history of bilateral hip replacements who had a ground level fall in his garage. He is normally a community ambulator without assistive devices in his active in dancing. He had immediate pain inability to weightbear and was brought to [facility] found to have a displaced greater tuberosity fracture into the intertrochanteric area. Total hip arthroplasty stem appeared well fixed. There was moderate displacement of the greater tuberosity fracture the patient was indicated for open reduction internal fixation to allow mobilization help with pain control and prevent late further displacement dysfunction and chronic limp. The risks and benefits of the procedure have been discussed with the patient and given the opportunity to ask questions. The risks of surgery include but are not limited to infection, malunion, nonunion, persistence of pain, damage to nerves and blood vessels, posttraumatic arthritis, DVT, PE, cardiopulmonary complications and . The patient expressed a thorough understanding of the risks and benefits of surgery and has elected to proceed. Consent was signed, Patient has acute on chronic blood loss anemia. He is being worked up for chronic anemia with positive stool guaiac and is pending colonoscopy. He is additional acute blood loss anemia from his fracture. We discussed risks of blood loss from surgery and possible requirement for transfusion should he become symptomatic. The patient understands. Surgeon: Nida Troy Click Yes if Unassisted: Yes Anesthesia Type: General and Local Operative Notes Findings: Moderately displaced greater trochanteric fracture. Large fragment with extension posterior medially. Proximally 1 cm of displacement. Well-fixed hip prosthetic. Fracture was fixed with a 5 hole accord cable plate from the [employer] system Closure Type: primary Specimen(s): none sent Prosthetic devices, grafts, tissues, transplants, or devices: [employer] Accord cable plate trochanteric [employer] plate standard length 125 mm 5 cable plate 3 x accord 2 mm cables Estimated Blood Loss (mL): 200 Blood products transfused: none Tourniquet time (min): 0 Procedure in detail: Patient was seen in the preoperative area the site of surgery was marked informed consent confirmed. The patient was brought back to the operating room by the anesthesia team positioned supine on the hospital bed. General anesthetic was administered and the patient was transferred to the operative table and positioned in the lateral position with the left hip up on the flat top Julian table using the hip [employer] system for a lateral decubitus position. A well-padded axillary bump was placed the down leg was well padded with an SCD placed and all bony prominences were padded. The left leg was prepped and draped free. A time-out procedure was performed confirming the patient's side and site of surgery administration of appropriate preoperative antibiotic. All were in agreement. In addition the patient received 1 g of TXA at the beginning of the case and 1 g at the end of the case. The C-arm was brought in and under fluoroscopic guidance the location of the fracture was marked on the skin in AP and lateral planes. Attention was turned to the left hip and a curvilinear incision centered over the greater trochanter was made down through the skin and subcutaneous tissue. The fascia larua and IT band were opened over the greater trochanter. There were some old nonabsorbable stitches from the patient's previous hip arthroplasty. Once this was opened and the Gelpi retractors placed the displaced greater trochanteric fracture was encountered. There was a proximally 1 cm of displacement superiorly. The fracture site was cleaned out. There was no evidence of instability of the hip implant. A pointed reduction clamp was used to reduce the fracture and some K-wires to hold position. As then the trial from the [employer] hip system was placed this was impacted into the greater troc hanter to create holes for the plate. Next a 5 hole plate was selected and this was impacted into the greater trochanter and centered on the bone in the AP and lateral planes. With terminal impaction of the proximal tines this did tend to over reduce the fracture and impacted so this was carefully held with the reduction clamp and the plate was centered on the femur and checked in fluoroscopy AP and lateral views. Once this was completed the cable Passer was passed around the femur and the cable was centered just above the lesser trochanter the beaded portion of the cable was inserted into 1 hole of the cable plate and then the free end into the cable Passer and then brought back around run through the plate again and then tensioned down and the clamp was secured as part of the plate. This was repeated twice more for a total of 3 cables 1 above the lesser trochanter and 2 cables below the lesser trochanter. This achieved excellent fixation and alignment of the fracture. The hip was taken through range of motion and there was no displacement of the greater trochanter. Once this was completed hemostasis was achieved with Bovie cautery and the Aquamantys and the wound was injected with 40 cc of 0.5% Marcaine with epinephrine for local anesthetic. A deep vastus and then fascia laura were closed with 0 Vicryl suture. Subcutaneous with 2-0 Vicryl suture and the skin with jhonny. A Aquacel dressing was placed. The patient was awoken from anesthesia in good condition and was taken to the recovery room. There were no immediate complications from the procedure. All counts were correct. Complications: none Post-operative Condition: stable Disposition: PACU Plan for aftercare: Weightbear as tolerated with the use of an assistive device. Use a walker or a cane full-time for 6 weeks to protect the repair. No active hip abduction can do active hip flexion and extension immediately. Follow-up in 2 weeks for staple removal the [facility] orthopedic surgery clinic. Recommend postoperative DVT prophylaxis x4 weeks with Lovenox or aspirin. Given the patient's anemia will recheck H&H in the morning 1st and then plan to initiate Lovenox
--- NOTE | 2023-05-30 17:01 | SUR.PHASEI ---
Patient slow to wake up and confused. VSS. Following simple commands but quickly falls back to sleep. No distress noted. Will continue to monitor neurological status.
[2023-05-30] MEDS: OXYCODONE IR 5 MG TABLET PO (17:12)
--- NOTE | 2023-05-30 17:30 | SUR.PHASEI ---
Patient more awake and is now able to tell nurse his birthday and that he is in the hospital. Urinal placed between legs. OR nurse assisting PACU nurse.
[2023-05-30] MEDS: SENNOSIDES 8.6 MG TABLET 17.2 MG PO (21:11)
[2023-05-30] MEDS: DOCUSATE 100 MG CAPSULE PO (21:11)
[2023-05-30] MEDS: ATORVASTATIN 20 MG TABLET PO (21:11)
[2023-05-30] MEDS: ACETAMINOPHEN 325 MG TABLET 650 MG PO (21:14)
[2023-05-31] VITALS (12 sets, daily range): BP systolic 95–126; BP diastolic 36–74; PULSE 56–77; RESP 17–20; TEMP 35.9–37.3; O2SAT 92–98
[2023-05-31] MEDS: LACTATED RINGERS 1,000 ML 100 ML IV (00:46)
[2023-05-31] MEDS: OXYCODONE IR 5 MG TABLET PO ×4 (00:49→16:19)
[2023-05-31] MEDS: ACETAMINOPHEN 325 MG TABLET 650 MG PO ×4 (03:06→21:22)
[2023-05-31] MEDS: CEFAZOLIN 2 GM/100 ML PREMIX 100 ML IV (05:58)
[2023-05-31 06:04] LABS: Mean Corpuscular HGB Conc 31.9 % (30-36); Mean Corpuscular Hemoglobin 23.9 PG (26-34); Platelet Count 177 X10^3/uL (150-400); Red Blood Cell Count 2.71 X10^6/uL (4.5-5.9); Red Cell Distribution Width 16.6 % (11.6-14.8); White Blood Cell Count 7.9 X10^3/uL (4.5-11.0)
--- NOTE | 2023-05-31 06:19 | PC.NURSE ---
Addendum entered by Lida Barahona R.N. 05/31/23 06:27: Critical lab value called in: H&H of 6.5/20.3. Dr. Gonzales notified. Original Note: Pt A&Ox4 but drowsy at start of shift. Pt pale and cold at start of shift, color returning and feet warmer by end of shift. Pain managed well with PO medications. Abx run completed, tolerated well.
[2023-05-31 06:24] LABS: Hemoglobin 6.5 g/dL (13.5-17.5)
[2023-05-31 06:25] LABS: Hematocrit 20.3 % (41-53)
[2023-05-31] MEDS: METOPROLOL ER 25 MG TABLET PO (09:20)
[2023-05-31] MEDS: LOSARTAN 50 MG TABLET 100 MG PO (09:21)
[2023-05-31] MEDS: ESCITALOPRAM 10 MG TABLET PO (09:21)
--- NOTE | 2023-05-31 09:45 | PM.PNPO.1 ---
Subjective Subjective Date Patient Seen: 05/31/23 Time Patient Seen: 09:45 Interval history: . Day 1 left greater troch periprosthetic hip fracture status post open reduction internal fixation. Patient started out with acute on chronic blood loss anemia, as expected this morning has had a drop in his hematocrit. Down below transfusion threshold of 7. Currently receiving PRBCs. Vital signs stable. He is more alert this morning and recovered from cognitive effects of general anesthesia. Complains of soreness at his left hip and back thinks it will improve with repositioning States the SCDs feel nice on his calves Exam Vital Signs (past 8 hours): - 05/31/23 03:00 05/31/23 04:33 05/31/23 08:21 Temperature 97.1 F L 97.8 F Pulse Rate 58 L 73 Respiratory Rate 18 20 Blood Pressure 109/53 L 117/51 L Pulse Oximetry 96 98 Oxygen Delivery Method Room Air Oxygen Flow Rate 2 05/31/23 08:38 05/31/23 08:00 05/31/23 09:20 Temperature 98.4 F 96.7 F L Pulse Rate 72 63 72 Respiratory Rate 20 17 Blood Pressure 108/49 L 117/36 L 108/74 Pulse Oximetry 96 Oxygen Delivery Method Oxygen Flow Rate 0 Oxygen Delivery Method Room Air Oxygen Flow Rate 0 Narrative Exam Narrative: General exam is alert and oriented no acute distress currently receiving blood transfusion HEENT exam normocephalic atraumatic Respiratoryunlabored on room air Left lower extremity has an Aquacel in place. This is clean and intact. Thigh is soft. Demonstrates dorsiflexion plantar flexion of the left ankle. Sensation was intact to light touch. Objective Labs 05/31/23 05:35 05/30/23 05:58 Labs: Laboratory Results - last 24 hr 05/30/23 05/31/23 12:15 05:35 WBC 7.9 RBC 2.71 L Hgb 6.5 L* Hct 20.3 L* MCV 75.0 L MCH 23.9 L MCHC 31.9 RDW 16.6 H Plt Count 177 Blood Type A Positive Antibody Screen Negative Crossmatch See Detail [facility] Medical History (Updated 05/30/23 @ 08:42 by Nida Troy MD) Benign prostatic hyperplasia History of colon polyps Hypertension Surgical History History of colonoscopy Social History household members: spouse and significant other Smoking Status: Former smoker Assessment & Plan Post-op Postoperative Procedures: Procedures Operation Date: 05/30/23 15:00 Actual Procedure Side Surgeon p ORIF periprosthetic hip fracture (Left) Nida Troy MD Postoperative day: 1 Postoperative status: anemia (Acute blood loss anemia from left hip fracture and chronic blood loss anemia pending GI workup) Postoperative status narrative: Patient doing reasonably well this morning. He does have acute blood loss anemia requiring transfusion this morning. Once He is medically stable he will work with therapy. He will be weightbear as tolerated with the use of an assistive device for 6 weeks postoperatively to protect his repair. No active abduction for 6 weeks. Once his hemoglobin is appropriate and stabilized would recommend DVT prophylaxis with Lovenox for 4 weeks Postoperative plan narrative: Keep Aquacel dressing in place unless saturated then may change as needed. Will follow up in Orthopedic Clinic in 2 weeks for staple removal. Time Spent With Patient Time with patient: less than 15 minutes Quality VTE Deep Vein Thrombosis/Pulmonary Embolism Present on Admission: No
--- NOTE | 2023-05-31 10:47 | PC.NURSE ---
0830 pt a/o x 4 had bf with no c/o. 1 unit PRBC started per protocol for low HH. vss and fadi well, repostion for comfort cms intact. con't blood infusion c/o left hip pain medicated with 1 oxy po- in room asking appropriate questions re; pt care
--- NOTE | 2023-05-31 12:03 | CM.DPNOTE ---
Discharge Planning Note: Patient is POD 1, he received a unit of PRBCs this morning, has not worked with PT yet due to weakness from anemia, blood loss related to surgery. PLAN: Continue to follow closely for discharge needs, Home with HH vs SNF rehab. Has supportive spouse Blanca. Faye Lechuga, RN/DCP
--- NOTE | 2023-05-31 12:44 | PT.IIE ---
Current Diagnoses Anemia, unspecified (05/30/23) Cardiac arrhythmia, unspecified (05/30/23) Periprosthetic fracture around internal prosthetic left hip joint, initial encounter (05/30/23) Surgery Performed Operation Date: 05/30/23 15:00 Actual Procedures p ORIF periprosthetic hip fracture (Left) - Nida Troy MD Surgical History (Last Reviewed 05/30/23 @ 08:37 by Nida Troy MD) History of colonoscopy Medical History (Last Reviewed 05/30/23 @ 08:37 by Nida Troy MD) Benign prostatic hyperplasia History of colon polyps Hypertension Physical Therapy Inpatient Evaluation/Re-Eval M1 PT/OT-IP Prior Functional Status Start: 05/31/23 13:37 Freq: NEEDED Status: Active Protocol: Document 05/31/23 13:37 AB (Rec: 05/31/23 13:58 AB [id number]) Medical Review Prior Functional Status Medical History Reviewed Yes Communication Pt is able to communicate needs. Mobility and Gait IND Activities of Daily Living and IADL's IND Social History Household Members spouse,significant other Living Arrangements House Number of Floors (Floors) One Floor Number of Stairs To Enter/Railing? 1 GENARO without hand rail through front door, 2 GENARO with hand rail on left through the garage Home Environment High Toilet,Walk in Shower Home Equipment Four Wheel Walker,Straight Cane,Raised Toilet Seat w/ Armrests,Shower Seat with Backrest,Bed Rails Additional Social History Comment Pt does not have grab bars in shower but has a suction bar his family can install. M2 PT-IP Current Condition Start: 05/31/23 13:37 Freq: NEEDED Status: Active Protocol: Document 05/31/23 13:37 AB (Rec: 05/31/23 13:58 AB [id number]) Physical Therapy Current Condition Current Condition Evaluation Date 05/31/23 Treatment Diagnosis s/p ORIF greater tuberosity fracture of left hip; weakness Onset Date 05/30/23 M3 PT-IP Subjective Start: 05/31/23 13:37 Freq: NEEDED Status: Active Protocol: Document 05/31/23 13:37 AB (Rec: 05/31/23 13:58 AB [id number]) Subjective Physical Therapy Visit Type Type Initial Evaluation Visit Start Time 12:44 Visit Stop Time 13:32 Total Visit Minutes 48 Notes Pt presents semi supine in bed with all needs and family present at bedside. Number of LOBBYIST Visits 0 Physical Therapy Visit Comments Patient Comments Pt reports he is feeling like his left leg is very week and painful. Patient Goals To go back home. Therapy Pain Assessment Pain When Pain Assessed During Mobility Pain Present Pain Present Pain Reported Location Left Hip Pain Behaviors Facial Grimacing,Wincing Pain Management Techniques Modification of Treatment,Re- positioning M4 PT-IP Mobility and Gait Start: 05/31/23 13:37 Freq: NEEDED Status: Active Protocol: Document 05/31/23 13:37 AB (Rec: 05/31/23 13:58 AB [id number]) PT-Bed Mobility Assessment Rolling Type of Rolling Roll to Right,Roll to Left Level of Assist Minimal Assistance Supine to Sit Supine to Sit Minimal Assistance,1 Person Assistance,Bedrails Sit to Supine Sit to Supine Minimal Assistance,1 Person Assistance Scooting Scooting to Edge of Bed Standby Assistance Scooting Up and Down in Bed Standby Assistance PT-Transfer Assessment Sit to and From Stand Sit to and from Stand Contact Guard Assistance, Minimal Assistance,1 Person Assistance Equipment Transfer Assistive Device Front Wheeled Walker Transfers Transfer Destination Bed,Chair Transfer Technique Stand Step Pivot Transfer Ability Level of Assist Contact Guard Assistance, Minimal Assistance,1 Person Assistance,Use of Upper Extremities Comments Mobility Comments Pt required [place] for first STS and transfer due to pain and weakness, however was able to perform with CGA for subsequent transfers. Gait Assessment Gait Gait Assistance Required: Contact Guard Assist,1 Person Assist Assistive Devices Assistive Device Front Wheeled Walker Gait Deviations General Gait Pattern Antalgic,Decreased Stride Length,Decreased Feet Clearance Factors Limiting Gait Function Factors Limiting Gait Function Decreased Activity Tolerance, Decreased Strength,Limited Range of Motion,Pain Stair Climbing Assessment Comments Stair Climbing Comments Unable to assess due to pain levels. PT-Balance Assessment Sitting Balance and Reactions Static Sitting Balance Ability Good Dynamic Sitting Balance Ability Good Standing Balance and Reactions Static Standing Balance Ability Good Dynamic Standing Balance Ability Fair M5 PT-IP Objective Assessments Start: 05/31/23 13:37 Freq: NEEDED Status: Active Protocol: Document 05/31/23 13:37 AB (Rec: 05/31/23 13:58 AB [id number]) Orientation Orientation/Cognition Level of Alertness Alert Orientation Name,Date,Place,Situation Language Function Ability No Deficits Noted Safety Awareness Understands Safety Issues Memory Description No Deficits Noted Gross Range of Motion Upper Extremity ROM Assessment Within Functional Limits Lower Extremity ROM Assessment Left Impaired Strength Upper Extremity Strength Assessment Within Functional Limits Lower Extremity Strength Assessment Left Impaired M6 PT-IP Treatment Start: 05/31/23 13:37 Freq: NEEDED Status: Active Protocol: Document 05/31/23 13:37 AB (Rec: 05/31/23 13:58 AB [id number]) Physical Therapy Treatment Exercises Exercises Ankle Pumps,Heel Slides Education Education Provided Precautions,Safety Brace Education Patient,Caregiver Other Treatments Other Treatment Performed Pt and pt's were educated on post op precautions of no active hip ABD for 6 weeks and safety with functional mobility. At end of session, the pt returned to bed, with all needs met, bed alarm set, call light placed within reach , and family at bedside. M7 PT-IP Assessment and Plan Start: 05/31/23 13:37 Freq: NEEDED Status: Active Protocol: Document 05/31/23 13:37 AB (Rec: 05/31/23 13:58 AB [id number]) PT Summary Assessment and Plan Potential Rehabilitation Potential Good Summary Impairments Pain,ROM,Strength,Balance,Bed Mobility,Transfers,Gait, Activity Tolerance Assessment Summary Oscar Figueroa is an 86 year old male patient who is s/p ORIF greater tuberosity fracture of left hip performed on 05/30/23 secondary to a ground level fall. Today 's PT examination revealed impairments consistent with this surgical procedure including LE weakness, LE ROM deficits, and pain symptoms. These impairments are limiting his ability to perform functional mobility at his PLOF, as he currently requires min assist for bed mobility, particularly to move LLE, and also requires min assist for STS and transfers using a FWW. However, during the session the patient was able to improve to CGA for STS, transfers and ambulating 10ft, all with FWW. Based on these findings, the patient would benefit from skilled PT during his hospital stay in order to improve his level of function . Based on his current level of function, discharge to home with home health PT is recommended, but is subject to change based on progress. The patient and his were educated on avoiding active hip abduction, as well as safety with functional mobility. Goals Bed Mobility Goal Standby Assistance Transfer Goal Standby Assistance,Front Wheeled Walker Gait Goal Standby Assistance,Front Wheel Walker Gait Distance 50 Days to Meet Goals 5 Frequency of Treatment Frequency Of Treatment Twice a Day Treatment Plan Physical Therapy Treatment Plan Bed Mobility Training,Transfer Training,Gait Training, Therapeutic Exercise,Balance Retraining,Post Op Education, Discharge Planning,Hot or Cold Pack,Neuromuscular Re-ed Other Recommendations and Next Treatment Assess stairs if able. Focus Precautions Other Precautions No active hip ABD for 6 weeks Weight Bearing Status Weight Bearing Status Weight Bear as Tolerated Recommendations To Nursing Amount of Assist Needed 1 Person Assist Discharge Recommendations PT Discharge Recommendations Home Health Other Discharge Recommendations HH PT vs OP PT depending on progress during hospital stay Equipment Needed for Home Before FWW Discharge Transportation Needs at Discharge Private Vehicle
[2023-05-31] MEDS: ENOXAPARIN 40 MG/0.4 ML SYRINGE SUBCUT (16:21)
--- NOTE | 2023-05-31 17:05 | P.PN_ITS ---
Subjective Subjective Interval history: Patient had successful hip repair surgery last night. Hgb 6.5 this AM so blood ordered. Exam Vital Signs (past 8 hours): - 05/31/23 09:20 05/31/23 11:31 05/31/23 12:00 Temperature 98.4 F 97.2 F L Pulse Rate 72 74 65 Respiratory Rate 20 18 Blood Pressure 108/74 126/61 126/61 Pulse Oximetry 94 Oxygen Flow Rate 0 Oxygen Delivery Method Room Air Oxygen Flow Rate 0 Narrative Exam Narrative: GEN: no acute distress HEENT: moist mucous membranes, PERRL NECK: trachea midline, no JVD CV: regular rate and rhythm, no murmurs PULM: clear bilaterally ABD: soft, nontender, nondistended, no organomegaly EXT: warm and well perfused with no edema NEURO: awake, alert, oriented, no focal deficits Objective Labs 05/31/23 05:35 05/30/23 05:58 Labs: Laboratory Results - last 24 hr 05/30/23 05/31/23 12:15 05:35 WBC 7.9 RBC 2.71 L Hgb 6.5 L* Hct 20.3 L* MCV 75.0 L MCH 23.9 L MCHC 31.9 RDW 16.6 H Plt Count 177 Blood Type A Positive Antibody Screen Negative Crossmatch See Detail [facility] Medical History (Updated 05/30/23 @ 08:42 by Nida Troy MD) Benign prostatic hyperplasia History of colon polyps Hypertension Surgical History History of colonoscopy Social History household members: spouse and significant other Smoking Status: Former smoker Assessment & Plan Assessment and plan (1) Periprosthetic fracture around internal prosthetic left hip joint: Status: Acute Plan: Repaired by ortho on 05/30. PT cleared for home with PT. (2) Ventricular arrhythmia: Status: Acute Plan: Echo obtained and shows normal EF, mod aortic stenosis. Continue home losartan for afterload reduction and metoprolol 25mg started for VT suppression. (3) Anemia: Status: Acute Plan: Hgb 6.5 following surgery, likely from surgical blood loss. Given 1 unit PRBC. Recheck in AM. Patient has confirmed hemoccult positive stool and needs colonoscopy. Spoke with ortho and plan is to trial lovenox and trend blood counts. If he remains stable will do 4 weeks of lovenox with routine weekly CBC's, but if he drops will not do any DVT proph. Plan Dispo: Home on 06/01 with HH. Quality VTE Deep Vein Thrombosis/Pulmonary Embolism Present on Admission: No
[2023-05-31] MEDS: SENNOSIDES 8.6 MG TABLET 17.2 MG PO (20:43)
[2023-05-31] MEDS: DOCUSATE 100 MG CAPSULE PO (20:43)
[2023-05-31] MEDS: ATORVASTATIN 20 MG TABLET PO (20:43)
[2023-06-01] VITALS (15 sets, daily range): BP systolic 103–138; BP diastolic 42–59; PULSE 54–71; RESP 16–20; TEMP 36.4–37.2; O2SAT 94–97
[2023-06-01] MEDS: SODIUM CHLORIDE 0.9% FLUSH 10 ML IV ×3 (05:46→20:07)
[2023-06-01 06:47] LABS: Basophils Absolute Auto 100 /uL (0-100); Basophils Percent Auto 0.9 % (0-2); Eosinophils Absolute Auto 200 /uL (0-450); Eosinophils Percent Auto 2.8 % (2-4); Hematocrit 21.3 % (41-53); Lymphocytes Absolute Auto 1000 /uL (1100-4500); Lymphocytes Percent Auto 14.8 % (25-40); Mean Corpuscular HGB Conc 32.5 % (30-36); Mean Corpuscular Hemoglobin 24.5 PG (26-34); Mean Corpuscular Volume 75.5 fL (80-100); Monocytes Absolute Auto 1000 /uL (0-900); Monocytes Percent Auto 14.5 % (3-14); Neutrophils Absolute Auto 4700 /uL (1500-7000); Platelet Count 147 X10^3/uL (150-400); Red Blood Cell Count 2.83 X10^6/uL (4.5-5.9); Red Cell Distribution Width 17.6 % (11.6-14.8)
[2023-06-01 06:51] LABS: BUN Creatinine Ratio 20.6 (6-22); Blood Urea Nitrogen 21 mg/dL (9-20); Calcium 7.9 mg/dL (8.4-10.2); Carbon Dioxide 27 mmol/L (22-32); Chloride 103 mmol/L (98-107); Estimated Glomerular Filt Rate > 60 mL/min (>60); Glucose 104 mg/dL (80-110); HEMOLYSIS < 15 (0-50); Potassium 4.1 mmol/L (3.4-5.1); Sodium 134 mmol/L (137-145)
[2023-06-01 06:54] LABS: Add Manual Diff / Slide Review SLIDE REVIEW; Hemoglobin 6.9 g/dL (13.5-17.5)
[2023-06-01 08:06] LABS: RBC Morphology Normal Morphology
[2023-06-01] MEDS: ACETAMINOPHEN 325 MG TABLET 650 MG PO ×2 (09:18→14:51)
[2023-06-01] MEDS: METOPROLOL ER 25 MG TABLET PO (09:19)
[2023-06-01] MEDS: SENNOSIDES 8.6 MG TABLET PO (09:20)
[2023-06-01] MEDS: DOCUSATE 100 MG CAPSULE PO ×2 (09:20→20:07)
--- NOTE | 2023-06-01 09:26 | PT-IP ANOTE ---
Unable to see pt, receiving blood transfusion at this time, in pain wanted to be premedicated pre PT visit. Will check back later am or early pm for caregiver training, further distance gait and stair mgt assessment has to enter home.
[2023-06-01] MEDS: OXYCODONE IR 5 MG TABLET PO ×2 (09:27→19:22)
[2023-06-01] MEDS: ESCITALOPRAM 10 MG TABLET PO (09:27)
[2023-06-01] MEDS: polyethylene glycoL 3350 17 GM POWD.PACK PO (09:28)
--- NOTE | 2023-06-01 10:34 | PM.PNPO.1 ---
Subjective Subjective Date Patient Seen: 06/01/23 Time Patient Seen: 10:34 Interval history: Pt sitting up in bed, receiving transfusion of PRBCs. Would very much like to go home tonight, if possible. Says he has only one step to get into the house. C/o tenderness about the incision site. Exam Vital Signs (past 8 hours): - 06/01/23 04:00 06/01/23 09:04 06/01/23 09:22 Temperature 98.7 F 99.0 F 98.8 F Pulse Rate 65 70 69 Respiratory Rate 18 20 20 Blood Pressure 110/54 L 108/52 L 112/56 L Pulse Oximetry 96 Oxygen Flow Rate 1 06/01/23 08:00 Temperature 98.1 F Pulse Rate 69 Respiratory Rate 16 Blood Pressure 122/56 L Pulse Oximetry 95 Oxygen Flow Rate 0 Fraction of Inspired Oxygen 24 Oxygen Delivery Method Nasal Cannula Oxygen Flow Rate 0 Narrative Exam Narrative: 5/5 strength in DF, PF, EHL on left; 3/5 quadriceps, hamstrings, hip flexors. Thigh is soft, no erythema. Aquacel dressing CDI. Calf soft, compressible, nontender. Sensation to light touch intact throughout LLE. Objective Labs 06/01/23 06:17 06/01/23 06:17 Labs: Laboratory Results - last 24 hr 05/30/23 06/01/23 06/01/23 12:15 06:17 06:17 WBC 7.0 RBC 2.83 L Hgb 6.9 L* Hct 21.3 L MCV 75.5 L MCH 24.5 L MCHC 32.5 RDW 17.6 H Plt Count 147 L Neut % (Auto) 67.0 Lymph % (Auto) 14.8 L [place] % (Auto) 14.5 H Eos % (Auto) 2.8 Baso % (Auto) 0.9 Neut # (Auto) 4700 Lymph # (Auto) 1000 L [place] # (Auto) 1000 H Eos # (Auto) 200 Baso # (Auto) 100 RBC Morphology Normal morphology Sodium 134 L Potassium 4.1 Chloride 103 Carbon Dioxide 27 BUN 21 H Creatinine 1.02 Estimated GFR > 60 BUN/Creatinine Ratio 20.6 Glucose 104 Calcium 7.9 L Blood Type A Positive Antibody Screen Negative Crossmatch See Detail [facility] Medical History (Updated 05/30/23 @ 08:42 by Nida Troy MD) Benign prostatic hyperplasia History of colon polyps Hypertension Surgical History History of colonoscopy Social History household members: spouse and significant other Smoking Status: Former smoker Assessment & Plan Post-op Assessment and plan (1) Periprosthetic fracture around internal prosthetic left hip joint: Assessment and Plan narrative: May be WBAT on left as long as he is using an assistive device. No active abduction for 6 weeks. F/u in ortho office in 2 weeks for staple removal/wound check. (2) Acute on chronic anemia: Assessment and Plan narrative: Once H/H stabilized, recommend DVT prophylaxis w/ either Lovenox 40mg daily or ASA 81mg BID for 4 weeks. Postoperative Procedures: Procedures Operation Date: 05/30/23 15:00 Actual Procedure Side Surgeon p ORIF periprosthetic hip fracture (Left) Nida Troy MD Postoperative day: 2 Quality VTE Deep Vein Thrombosis/Pulmonary Embolism Present on Admission: No
--- NOTE | 2023-06-01 12:14 | CM.DPC ---
DCP HH Planning: Per MD, pt's H&H low again from blood loss anemia from hip surg and having another transfusion today and pending labs and PT/OT pt might be stable for d/c later today vs tomorrow. Per PT, recommending safe d/c home with spouse assist and HH and OT ordered and pending. SW met bedside with pt and spouse and explained role and they confirm they feel safe with discharge home plan and explained HH services and frequency and provided the HH Choice list and no HH preference. SW made [facility] referral along with F2F and HH orders based on [facility]endor Calendar. Plan: SW to follow for further PT/OT today and labs after pt's transfusion to confirm d/c today vs tomorrow and with new [facility] and to fax d/c summary to [facility] at discharge. GORDON Viramontes
--- NOTE | 2023-06-01 14:29 | P.PN_ITS ---
Subjective Subjective Interval history: Hgb dropped to 6.9 overnight. Given 2 units of PRBC and lovenox stopped. Patient has no complaints other than pain in his hip. Exam Vital Signs (past 8 hours): - 06/01/23 09:04 06/01/23 09:22 06/01/23 08:00 Temperature 99.0 F 98.8 F 98.1 F Pulse Rate 70 69 69 Respiratory Rate 20 20 16 Blood Pressure 108/52 L 112/56 L 122/56 L Pulse Oximetry 95 Oxygen Delivery Method Oxygen Flow Rate 0 06/01/23 11:17 06/01/23 11:17 06/01/23 11:39 Temperature 98.3 F 98.3 F 98.2 F Pulse Rate 71 71 69 Respiratory Rate 20 20 20 Blood Pressure 103/49 L 103/59 L 108/49 L Pulse Oximetry Oxygen Delivery Method Oxygen Flow Rate 06/01/23 11:56 06/01/23 09:18 06/01/23 09:18 Temperature 98.2 F Pulse Rate 69 Respiratory Rate 20 Blood Pressure 105/51 L Pulse Oximetry 94 Oxygen Delivery Method Nasal Cannula Nasal Cannula Oxygen Flow Rate 1.5 06/01/23 12:00 06/01/23 11:10 06/01/23 13:54 Temperature 98.5 F 98.1 F Pulse Rate 71 65 Respiratory Rate 16 20 Blood Pressure 105/51 L 111/56 L Pulse Oximetry 94 94 Oxygen Delivery Method Nasal Cannula Oxygen Flow Rate 0 1.5 Fraction of Inspired Oxygen 24 Oxygen Delivery Method Nasal Cannula Oxygen Flow Rate 0 Narrative Exam Narrative: GEN: no acute distress HEENT: moist mucous membranes, PERRL NECK: trachea midline, no JVD CV: regular rate and rhythm, no murmurs PULM: clear bilaterally ABD: soft, nontender, nondistended, no organomegaly EXT: warm and well perfused with no edema NEURO: awake, alert, oriented, no focal deficits Objective Labs 06/01/23 06:17 06/01/23 06:17 Labs: Laboratory Results - last 24 hr 05/30/23 06/01/23 06/01/23 12:15 06:17 06:17 WBC 7.0 RBC 2.83 L Hgb 6.9 L* Hct 21.3 L MCV 75.5 L MCH 24.5 L MCHC 32.5 RDW 17.6 H Plt Count 147 L Neut % (Auto) 67.0 Lymph % (Auto) 14.8 L [place] % (Auto) 14.5 H Eos % (Auto) 2.8 Baso % (Auto) 0.9 Neut # (Auto) 4700 Lymph # (Auto) 1000 L [place] # (Auto) 1000 H Eos # (Auto) 200 Baso # (Auto) 100 RBC Morphology Normal morphology Sodium 134 L Potassium 4.1 Chloride 103 Carbon Dioxide 27 BUN 21 H Creatinine 1.02 Estimated GFR > 60 BUN/Creatinine Ratio 20.6 Glucose 104 Calcium 7.9 L Blood Type A Positive Antibody Screen Negative Crossmatch See Detail [facility] Medical History (Updated 05/30/23 @ 08:42 by Nida Troy MD) Benign prostatic hyperplasia History of colon polyps Hypertension Surgical History History of colonoscopy Social History household members: spouse and significant other Smoking Status: Former smoker Assessment & Plan Assessment and plan (1) Periprosthetic fracture around internal prosthetic left hip joint: Status: Acute Plan: Repaired by ortho on 05/30. PT cleared for home with PT. Stopped lovenox due to anemia, ortho ok with mechanical DVT proph and KELLI hose on dc. (2) Ventricular arrhythmia: Status: Acute Plan: Echo obtained and shows normal EF, mod aortic stenosis. Continue home losartan for afterload reduction and metoprolol 25mg started for VT suppression. Keep K >4 and mag >2. (3) Anemia: Status: Acute Plan: Hgb 6.5 following surgery, likely from surgical blood loss. Given 1 unit PRBC. Recheck in AM. Patient has confirmed hemoccult positive stool and needs colonoscopy as outpatient. Spoke with ortho and plan is to trial lovenox and trend blood counts. If he remains stable will do 4 weeks of lovenox with routine weekly CBC's, but if he drops will not do any DVT proph. -Hgb dipped to 6.9 overnight. Lovenox stopped, ok with ortho. Given 2 units of PRBC. Recheck in AM. -has outpatient GI workup planned Plan Dispo: Home on 06/02 with . Quality VTE Deep Vein Thrombosis/Pulmonary Embolism Present on Admission: No
--- NOTE | 2023-06-01 14:29 | PT-IP ANOTE ---
Pt received two units blood products today and was unavailable for PT this AM. No new H&H resulted yet. PT requested OT orders since pt hopes to discharge home; pt busy with OT this PM. Will follow up for further PT treatment Thursday.
[2023-06-01] MEDS: OXYCODONE IR 10 MG TABLET PO (14:38)
--- NOTE | 2023-06-01 15:37 | OT.IP.EVAL ---
Current Diagnoses Anemia, unspecified (05/30/23) Cardiac arrhythmia, unspecified (05/30/23) Periprosthetic fracture around internal prosthetic left hip joint, initial encounter (05/30/23) Surgery Performed Operation Date: 05/30/23 15:00 Actual Procedures p ORIF periprosthetic hip fracture (Left) - Nida Troy MD Past Medical History (Last Reviewed 05/30/23 @ 08:37 by Nida Troy MD) Benign prostatic hyperplasia History of colon polyps Hypertension Surgical History (Last Reviewed 05/30/23 @ 08:37 by Nida Troy MD) History of colonoscopy Occupational Therapy Inpatient Evaluation/Re-Eval M1 PT/OT-IP Prior Functional Status Start: 05/31/23 13:37 Freq: NEEDED Status: Active Protocol: Document 06/01/23 15:36 CGR (Rec: 06/01/23 15:53 CGR [id number]) Medical Review Prior Functional Status Medical History Reviewed Yes Communication Pt is able to communicate needs. Mobility and Gait Pt was IND without AD Activities of Daily Living and IADL's Pt was IND without AD for all ADLs and I ADLs. Pt states he does not drive at night. Social History Household Members spouse,significant other Living Arrangements House Number of Floors (Floors) One Floor Number of Stairs To Enter/Railing? 1 GENARO without hand rail through front door, 2 GENARO with hand rail on left through the garage Home Environment High Toilet,Walk in Shower Home Equipment Four Wheel Walker,Straight Cane,Shower Seat with Backrest ,Bed Rails Additional Social History Comment Pt does not have grab bars in shower but has a suction bar his family can install. Pt has a toilet safety frame with a standard height toilet. M2 OT-IP Current Condition Start: 06/01/23 15:36 Freq: Status: Active Protocol: Document 06/01/23 15:36 CGR (Rec: 06/01/23 15:53 CGR [id number]) Occupational Therapy Current Condition Current Condition Evaluation Date 06/01/23 Treatment Diagnosis Fall with L hip pain, ORIF L hip Diagnosis Onset Date 05/30/23 Weight Bearing Status Weight Bearing Status Weight Bear as Tolerated M3 OT- IP Subjective and Pain Start: 06/01/23 15:36 Freq: Status: Active Protocol: Document 06/01/23 15:36 CGR (Rec: 06/01/23 15:53 CGR [id number]) OT- Subjective Occupational Therapy Visit Type Type Initial Evaluation Visit Start Time 14:52 Visit Stop Time 15:37 Total Visit Minutes 45 Notes Pt's present throughout OT Pain Assessment Pain When Pain Assessed At Rest Pain Present Pain Present Pain Reported Location Left Hip Intensity 5 Scale Used Numeric (0 - 10) Management Techniques Modification of Treatment,Re- positioning,Timing of Activity with Medications M4 OT- IP ADL's Start: 06/01/23 15:36 Freq: Status: Active Protocol: Document 06/01/23 15:36 CGR (Rec: 06/01/23 15:53 CGR [id number]) OT [id number] Comments OT Self-Feeding Comments not meal time OT ADL-Grooming Comments OT Grooming Comments not performed, pt agreed to walk to sink but then states that he really wants to sit back down. OT ADL-Oral Care Comments Oral Care Comments not performed, pt agreed to walk to sink but then states that he really wants to sit back down. OT ADL-Dressing General Eval Upper Body Dressing Ability Maximum Assistance Lower Body Dressing Ability Total Assistance Areas Needing Assistance Socks Comments OT Dressing Comments hospital gown and socks OT ADL-Toileting General Evaluation Toileting Ability Total Assistance Areas Needing Assistance Manage Clothing,Perform Perineal Hygiene Devices Toileting Assistive Devices Urinal Comments OT Toileting Comments Pt with soiled brief when Ot entered. Pt needed assist from to pull down briefs and place urinal for him to urinate standing. Pt with BM on sheets but states that he doesn't feel like he needs to have a BM. OT ADL-Bathing Comments OT Bathing Comments not performed M5 OT- IP IADL's Start: 06/01/23 15:36 Freq: Status: Active Protocol: Document 06/01/23 15:36 CGR (Rec: 06/01/23 15:53 CGR [id number]) OT-Instrumental Activities of Daily Living Deficits IADL Deficits Identified No Deficits Home Safety Awareness Awareness of Need for Assistance at Home Good Awareness Ability to Problem Solve Emergency Able to Problem Solve Situations Medication Management Medication Management Caregiver Administers Money Management Money Management Caregiver Provides Assistance Meal Preparation Meal Preparation Caregiver Provides Assist Access Specialist Access Specialist Caregiver Provides Assist Driving Driving Comments Pt does drive at baseline. M6 OT- IP Functional Cognition Start: 06/01/23 15:36 Freq: Status: Active Protocol: Document 06/01/23 15:36 CGR (Rec: 06/01/23 15:53 CGR [id number]) Cognitive Factors Limiting Selfcare Function Cognitive Ability Level of Alertness Alert Patient Orientation Name,Age,Birthday,Year,Day of Week,Place,Situation Attention Span Ability Capable of Focused Attention, Capable of Sustained Attention Cognitive Comments Cognitive Assessment Comments Pt states that is it Shruti near the begining. OT- Vision and Hearing OT- Hearing Assessment OT- Hearing Assessment Hearing Impaired,Use of Hearing Aids OT- Vision Assessment Visual Acuity WFL Visual Attentiveness WFL Occular Pursuits WFL Visual Convergence WFL Vision Assessment Comments Pt wears glasses for driving. M7 OT- IP Mobility and Balance Start: 06/01/23 15:36 Freq: Status: Active Protocol: Document 06/01/23 15:36 CGR (Rec: 06/01/23 15:53 CGR [id number]) OT- Bed Mobility Assessment Supine to Sit Supine to Sit Assist Maximum Assistance Scooting Scooting to Edge of Bed Minimal Assistance OT-Transfer Assessment Sit to and From Stand Sit to and from Stand Minimal Assistance Transfers Transfer Ability Minimal Assistance Technique Transfer Destination Bed,Chair Transfer Technique Stand Step Pivot Devices Transfer Assistive Devices Gait Belt,Front Wheeled Walker Comments Mobility Comments Pt needed max a for bed mobility but then was able to mobilize with min a. Pt needed instruction to put the L foot on the ground and put weight through it. OT- Gait Assessment Gait Gait Assistance Required: Minimum Assistance Assistive Devices Assistive Device Gait Belt,Front Wheeled Walker Comments Gait Ability Comments Pt needs VC for use of walker OT- Balance Assessment Sitting Balance and Reactions Static Sitting Balance Ability Good Dynamic Sitting Balance Ability Good M8 OT- IP Objective Assessments Start: 06/01/23 15:36 Freq: Status: Active Protocol: Document 06/01/23 15:36 CGR (Rec: 06/01/23 15:53 CGR [id number]) OT Gross Range of Motion Upper Extremity Range of Motion Assessment Within Functional Limits OT Strength Upper Extremity Strength Assessment Within Functional Limits Comments Strength Comments 4/5 throughout OT- Coordination Assessment Upper Extremity Finger to Nose Test Within Functional Limits Finger Tapping Test Within Functional Limits OT-Muscle Tone Assessment Muscle Tone WNL Yes OT Sensation Assessment Edema Edema Absent M9 OT- IP Assessment and Plan Start: 06/01/23 15:36 Freq: Status: Active Protocol: Document 06/01/23 15:36 CGR (Rec: 06/01/23 15:53 CGR [id number]) OT Summary Assessment and Plan Potential Rehabilitation Potential Good Analytic Complexity at Evaluation Moderate Summary OT Impairments Pain,Balance,Functional Cognition,Functional Mobility, Grooming,Dressing,Toileting, Bathing,Toilet Transfers, Shower Transfers,Activity Tolerance Progress Towards Goals Progressing Toward Goals Assessment Summary Pt presents as a moderate complexity evaluation s/p admit for fall with L hip fx s /p ORIF L hip. Pt is WBAT and is moving with min a. Pt needed max a for bed mobility and will need further training for LB dressing and other ADLs. Pt wants to discharge home with his . Pt will benefit from continued OT services. Goals Grooming Goal Independent Dressing Goal Independent Toileting Goal Independent Bathing Goal Independent Toilet Transfer Goal Independent Shower Transfer Goal Independent Days to Meet Goals 10 Frequency of Treatment Frequency Of Treatment Once a Day Treatment Plan OT Treatment Plan ADL Training,Functional Mobility,Patient/Family Education,Discharge Planning Other Treatment Recommendations and Next LB dressing training, ADLs Treatment Focus standing, shower?, home safety , bed mobility training. Discharge Recommendations OT Discharge Recommendations Home with Assistance Transportation Needs at Discharge Private Vehicle
--- NOTE | 2023-06-01 16:02 | PT.IPTN ---
Addendum entered and electronically signed by Aminah Singh PTA 06/01/23 16:27: Check vitals, Hgb/Hct. Original Note: Current Diagnoses Anemia, unspecified (05/30/23) Cardiac arrhythmia, unspecified (05/30/23) Periprosthetic fracture around internal prosthetic left hip joint, initial encounter (05/30/23) Surgery Performed Operation Date: 05/30/23 15:00 Actual Procedures p ORIF periprosthetic hip fracture (Left) - Nida Troy MD Physical Therapy Treatment Note M2 PT-IP Current Condition Start: 05/31/23 13:37 Freq: NEEDED Status: Active Protocol: Document 06/01/23 15:32 SP (Rec: 06/01/23 16:23 SP [id number]) Physical Therapy Current Condition Current Condition Evaluation Date 05/31/23 Treatment Diagnosis s/p ORIF greater tuberosity fracture of left hip; weakness Onset Date 05/30/23 M3 PT-IP Subjective Start: 05/31/23 13:37 Freq: NEEDED Status: Active Protocol: Document 06/01/23 15:32 SP (Rec: 06/01/23 16:23 SP [id number]) Subjective Physical Therapy Visit Type Type Treatment Note Visit Start Time 15:32 Visit Stop Time 16:02 Total Visit Minutes 30 Notes assist pt with mobility coming to standing and gait. Vitals end tx with OT: BP 118/ 56 HR 77 91% on RA. w/ Mobility: 127/47 HR 67 SaO2 96 % on RA. Number of ELECTRONICS DETAIL DRAFTSPERSON Visits 1 Physical Therapy Visit Comments Patient Comments Pt finishing with OT when arrived. Pt willing to work with therapy. Patient Goals To go back home with to assist him. Therapy Pain Assessment Pain When Pain Assessed At Rest Pain Present Pain Present Pain Reported Location Left Hip Intensity 5 Scale Used Numeric (0 - 10) Pain Behaviors Facial Grimacing Pain Management Techniques Distraction,Modification of Treatment,Re-positioning, Timing of Activity with Medications M4 PT-IP Mobility and Gait Start: 05/31/23 13:37 Freq: NEEDED Status: Active Protocol: Document 06/01/23 15:32 SP (Rec: 06/01/23 16:23 SP [id number]) PT-Transfer Assessment Sit to and From Stand Sit to and from Stand Contact Guard Assistance, Minimal Assistance,1 Person Assistance,Use of Upper Extremities Equipment Transfer Assistive Device Gait Belt,Front Wheeled Walker Transfers Transfer Destination Chair Transfer Technique pt ambulated w/ FWW Transfer Ability Level of Assist Contact Guard Assistance, Minimal Assistance,1 Person Assistance,Use of Upper Extremities Comments Mobility Comments Pt long sitting in chair with PT when arrived. Pt didn't recall his L hip precaution, reviewed no kicking outwards with LLE. Scoot EOchair SBA, STS CG- 10%A redirected BUE on chair arms come to stand. Gait around room w/ FWW, pt tends keep L knee bent and 25% WB, cued LLE TKE midstance and able progress stagger stride gait with mod heavy BUE on FWW. Gait around room and back to chair approx 30 ft. Cued back step fully and reach back slow descent 5% A via . Self scoot back. Assisted elevate BLEs, pt has demonstrated able to lower leg rest self, discussed with nursing fall risk suggest chair alarm. Pt had all needs in reach up in chair. Ed encouraged ambulate with nursing before go tobed around room if not feeling dizzy, give nursing feedback how feeling. Will continue to assess progress Gait Assessment Gait Gait Assistance Required: Contact Guard Assist,Minimum Assistance,1 Person Assist Distance (Feet) 30 Assistive Devices Assistive Device Gait Belt,Front Wheeled Walker Gait Deviations General Gait Pattern Antalgic,Decreased Stride Length,Decreased Feet Clearance,Step-to Gait Factors Limiting Gait Function Factors Limiting Gait Function Decreased Activity Tolerance, Decreased Strength,Difficulty Following Directions,Limited Range of Motion,Pain,Poor Safety Awareness Comments Gait Comments Cued L knee TKE during midstance phase and increase stride, improved step to> stride stepping. Cued marching steps to adhere to no active hip abd during mobility. Stair Climbing Assessment Comments Stair Climbing Comments Unable to assess due to pain levels, decreased stance time on LLE. Will assess tomorrow. PT-Balance Assessment Sitting Balance and Reactions Static Sitting Balance Ability Good Dynamic Sitting Balance Ability Good Standing Balance and Reactions Static Standing Balance Ability Good Dynamic Standing Balance Ability Fair Device Used FWW M5 PT-IP Objective Assessments Start: 05/31/23 13:37 Freq: NEEDED Status: Active Protocol: Document 05/31/23 13:37 AB (Rec: 05/31/23 13:58 AB [id number]) Orientation Orientation/Cognition Level of Alertness Alert Orientation Name,Date,Place,Situation Language Function Ability No Deficits Noted Safety Awareness Understands Safety Issues Memory Description No Deficits Noted Gross Range of Motion Upper Extremity ROM Assessment Within Functional Limits Lower Extremity ROM Assessment Left Impaired Strength Upper Extremity Strength Assessment Within Functional Limits Lower Extremity Strength Assessment Left Impaired M6 PT-IP Treatment Start: 05/31/23 13:37 Freq: NEEDED Status: Active Protocol: Document 06/01/23 15:32 SP (Rec: 06/01/23 16:23 SP [id number]) Physical Therapy Treatment Exercises Exercises Ankle Pumps,Heel Slides Education Education Provided Precautions,Weight Bearing Status,Safety Brace Education Patient,Caregiver M7 PT-IP Assessment and Plan Start: 05/31/23 13:37 Freq: NEEDED Status: Active Protocol: Document 06/01/23 15:32 SP (Rec: 06/01/23 16:23 SP [id number]) PT Summary Assessment and Plan Potential Rehabilitation Potential Good Summary Impairments Pain,ROM,Strength,Balance,Bed Mobility,Transfers,Gait, Activity Tolerance Progress Towards Goals Slow Progress due to Pain,Slow Progress due to Medical Issues,Slow Progress due to Activity Tolerance Assessment Summary Pt decrease safety, cues during tx by ELECTRONICS DETAIL DRAFTSPERSON/ during mobillity: CG- Min A transfers and gait around room w/ FWW. Decreased stance time on LLE, cues TKE for stability and stability, improved with distance. Unable to assess stair mgt due to decreased stability LLE, need assess 2 step L HR or 1 PF step to enter home: CGT at 06/02 with . Discussed with pt as if need premedication before arrive. Will continue to assess progress. SNF vs HHPT 27/04 available. Goals Bed Mobility Goal Standby Assistance Transfer Goal Standby Assistance,Front Wheeled Walker Gait Goal Standby Assistance,Front Wheel Walker Gait Distance 50 Days to Meet Goals 5 Frequency of Treatment Frequency Of Treatment Twice a Day Treatment Plan Physical Therapy Treatment Plan Bed Mobility Training,Transfer Training,Gait Training, Therapeutic Exercise,Balance Retraining,Post Op Education, Discharge Planning,Hot or Cold Pack,Neuromuscular Re-ed Other Recommendations and Next Treatment CGT with at 06/02 Focus with PT. Bed mob, transfers, gait with FWW, stair mgt trng. Precautions Other Precautions No active hip ABD for 6 weeks Weight Bearing Status Weight Bearing Status Weight Bear as Tolerated Recommendations To Nursing Amount of Assist Needed 1 Person Assist Discharge Recommendations PT Discharge Recommendations Home with 27/04 Assist Available,Home Health,SNF Rehab,Home vs SNF Other Discharge Recommendations HH PT vs OP PT depending on progress during hospital stay Equipment Needed for Home Before FWW acquired by , in room Discharge (pink). Transportation Needs at Discharge Private Vehicle
[2023-06-01] MEDS: ATORVASTATIN 20 MG TABLET PO (20:07)
[2023-06-01] MEDS: SENNOSIDES 8.6 MG TABLET 17.2 MG PO (20:07)
[2023-06-02] VITALS: BP 109/54; PULSE 59; RESP 16; TEMP 36.2; O2SAT 96
[2023-06-02 04:00] VITALS: O2SAT 94
[2023-06-02] MEDS: ACETAMINOPHEN 325 MG TABLET 650 MG PO ×2 (04:50→09:35)
[2023-06-02 05:14] VITALS: BP 114/54; PULSE 60; RESP 18; TEMP 36.6; O2SAT 97
[2023-06-02 05:42] LABS: Add Manual Diff / Slide Review NO; Basophils Absolute Auto 100 /uL (0-100); Basophils Percent Auto 1.1 % (0-2); Eosinophils Absolute Auto 300 /uL (0-450); Eosinophils Percent Auto 4.1 % (2-4); Hemoglobin 8.8 g/dL (13.5-17.5); Lymphocytes Absolute Auto 1200 /uL (1100-4500); Lymphocytes Percent Auto 16.2 % (25-40); Mean Corpuscular HGB Conc 33.6 % (30-36); Mean Corpuscular Hemoglobin 25.7 PG (26-34); Mean Corpuscular Volume 76.7 fL (80-100); Monocytes Absolute Auto 1000 /uL (0-900); Monocytes Percent Auto 13.6 % (3-14); Neutrophils Absolute Auto 5000 /uL (1500-7000); Platelet Count 147 X10^3/uL (150-400); Red Blood Cell Count 3.41 X10^6/uL (4.5-5.9); Red Cell Distribution Width 17.6 % (11.6-14.8); White Blood Cell Count 7.7 X10^3/uL (4.5-11.0)
[2023-06-02 05:50] LABS: Hematocrit 26.1 % (41-53)
[2023-06-02 05:51] LABS: BUN Creatinine Ratio 18.6 (6-22); Blood Urea Nitrogen 18 mg/dL (9-20); Calcium 7.9 mg/dL (8.4-10.2); Carbon Dioxide 28 mmol/L (22-32); Chloride 102 mmol/L (98-107); Estimated Glomerular Filt Rate > 60 mL/min (>60); Glucose 99 mg/dL (80-110); HEMOLYSIS < 15 (0-50); Potassium 4.3 mmol/L (3.4-5.1); Sodium 134 mmol/L (137-145)
--- NOTE | 2023-06-02 07:41 | PM.DS.1 ---
History of Present Illness History of Present Illness Date Patient Seen: 05/30/23 Time Patient Seen: 05:30 Chief complaint: fall left hip pain Narrative: The pt is a very nice gentleman who was walking in his garage and tripped and fell landing on his left hip. He has bilat hip replacements about 25 years ago and also repots that he has been having difficulty with dizziness and lightheadedness over the past month. Jf had a Holter monitor which did reveal some a-fib but also Ventricular fib but was asymptomatic during this episodes. They have only gone to their primary care provider, a PA who has referred him a home stereo equipment installer whom he has not seen yet. The pt also is currently being worked up for chronic anemia and is also scheduled to see a GI specialist in the future. Discharge Providers Provider Date of admission: 05/30/23 02:59 Discharge Date: 06/02/23 Primary care physician: Vinayak Carreon MD Consults: 05/30/23 02:44 Consult to Orthopedic Surgery Stat Comment: Consulting Provider: Nida Troy Reason for consultation: L hip fracture Has provider been notified: Yes 05/30/23 03:12 Consult to Physician Routine Comment: Consulting Provider: Nida Troy Reason for consultation: hip fx Has provider been notified: Yes 05/30/23 18:09 Consult to Discharge Planning Routine Comment: Consult to Physical Therapy Evaluate & Treat Comment: wbat ,walker 6 wks, no active hip ABDuction 6wks Physician Instructions: Evaluate and Treat 06/01/23 12:13 Consult to Home Health Routine Comment: GLF with L hip fx and ORIF, acute anemia Reason For Exam: Set up RN/PT/OT/CORRECTIONAL COUNSELOR for discharge to home Consult to Occupational Therapy Evaluate & Treat Comment: Physician Instructions: Evaluate and treat Discharge provider: Odin Henriquez, Summary Hospital Course Discharge Diagnosis: (1) Periprosthetic fracture around internal prosthetic left hip joint: ?Status:?Acute ?Plan: Repaired by ortho on 05/30. PT cleared for home with PT. Stopped lovenox due to anemia, ortho ok with mechanical DVT proph and KELLI hose on dc. (2) Ventricular arrhythmia: ?Status:?Acute ?Plan: Echo obtained and shows normal EF, mod aortic stenosis. Continue home losartan for afterload reduction and metoprolol 25mg started for VT suppression. Keep K >4 and mag >2. (3) Anemia: ?Status:?Acute ?Plan: Hgb 6.5 following surgery, likely from surgical blood loss. Given 1 unit PRBC. Patient has confirmed hemoccult positive stool and needs colonoscopy as outpatient. Spoke with ortho and plan is to trial lovenox and trend blood counts. If he remains stable will do 4 weeks of lovenox with routine weekly CBC's, but if he drops will not do any DVT proph. -Hgb dipped to 6.9 overnight. Lovenox stopped, ok with ortho. Given 2 units of PRBC then remained stable. -has outpatient GI workup planned Hospital Course: Admitted for fall causing periprosthetic fracture of left hip. Fixed by ortho and had postop anemia requiring 1 unit of PRBC. Lovenox trialed but then stopped due to dip in Hgb. Ortho ok with [facility] DVT proph alone. Had a couple episodes of NSVT so metoprolol started. Has outpatient cardiology f/u scheduled. Also has GI appt for scopes to find source of anemia. Exam Vital Signs (past 8 hours): - 06/02/23 00:00 06/02/23 00:00 06/02/23 04:00 Temperature 97.2 F L Pulse Rate 59 L Respiratory Rate 16 Blood Pressure 109/54 L Pulse Oximetry 96 96 94 Oxygen Delivery Method Room Air Nasal Cannula Oxygen Flow Rate 1.5 1.5 06/02/23 05:14 Temperature 97.8 F Pulse Rate 60 Respiratory Rate 18 Blood Pressure 114/54 L Pulse Oximetry 97 Oxygen Delivery Method Oxygen Flow Rate 1.5 Fraction of Inspired Oxygen 26 Oxygen Delivery Method Nasal Cannula Oxygen Flow Rate 1.5 Narrative Exam Narrative: GEN: no acute distress HEENT: moist mucous membranes, PERRL NECK: trachea midline, no JVD CV: regular rate and rhythm, no murmurs PULM: clear bilaterally ABD: soft, nontender, nondistended, no organomegaly EXT: warm and well perfused with no edema NEURO: awake, alert, oriented, no focal deficits Objective Labs 06/02/23 05:16 06/02/23 05:16 Labs: Laboratory Results - last 24 hr 05/30/23 06/01/23 06/02/23 12:15 06:17 05:16 WBC 7.7 RBC 3.41 L Hgb 8.8 L Hct 26.1 L MCV 76.7 L MCH 25.7 L MCHC 33.6 RDW 17.6 H Plt Count 147 L Neut % (Auto) 65.0 Lymph % (Auto) 16.2 L Mcclain % (Auto) 13.6 Eos % (Auto) 4.1 H Baso % (Auto) 1.1 Neut # (Auto) 5000 Lymph # (Auto) 1200 Mcclain # (Auto) 1000 H Eos # (Auto) 300 Baso # (Auto) 100 RBC Morphology Normal morphology Sodium Potassium Chloride Carbon Dioxide BUN Creatinine Estimated GFR BUN/Creatinine Ratio Glucose Calcium Blood Type A Positive Antibody Screen Negative Crossmatch See Detail 06/02/23 05:16 WBC RBC Hgb Hct MCV MCH MCHC RDW Plt Count Neut % (Auto) Lymph % (Auto) Mcclain % (Auto) Eos % (Auto) Baso % (Auto) Neut # (Auto) Lymph # (Auto) Mcclain # (Auto) Eos # (Auto) Baso # (Auto) RBC Morphology Sodium 134 L Potassium 4.3 Chloride 102 Carbon Dioxide 28 BUN 18 Creatinine 0.97 Estimated GFR > 60 BUN/Creatinine Ratio 18.6 Glucose 99 Calcium 7.9 L Blood Type Antibody Screen Crossmatch [facility] Medical History (Updated 05/30/23 @ 08:42 by Nida Troy MD) Benign prostatic hyperplasia History of colon polyps Hypertension Surgical History History of colonoscopy Social History household members: spouse and significant other Smoking Status: Former smoker Discharge Plan Discharge Plan Patient Disposition: Home Health Service Discharge orders & Medications Prescriptions: New metoprolol succinate 25 mg Tablet Extended Release 24 Hr 25 mg PO DAILY Qty: 30 0RF tramadol 50 mg tablet 50 mg PO Q8H PRN (Reason: pain) Qty: 15 0RF Continued escitalopram oxalate 10 mg tablet 10 mg PO DAILY atorvastatin 20 mg tablet 20 mg PO ONCE PM Discontinued losartan 100 mg tablet 100 mg PO DAILY Follow up/Referrals: Nida Troy MD [Physician] - 2 Weeks (Follow up w/ a TU in orthopedic clinic in 2 weeks for staple removal/wound check. Follow up w/ Dr Troy in 6 weeks for repeat imaging and advancement of activity as appropriate.) Vinayak Carreon MD [Primary Care Provider] - 2 Weeks Other Ambulatory Orders: Complete Blood Count AUTO DIFF (Urgent) Timeframe: 1 Week Facility: [facility] - Location: Laboratory Ordered By: Odin Henriquez Diet/Activity/Treatments Diet: Diet as Tolerated Activity: Weightbearing as tolerated to left leg but needs to use an assistive device (walker or cane) at all times. No active hip abduction; can do active hip flexion and extension. Cold/Heat Therapy: Ice to hip as needed for pain. Visit Report/Discharge Packet Instructions: Anemia, DI for Open Reduction Internal Fixation Surgery, Metoprolol, Tramadol Stand Alone Forms: Patient Portal/API, Stroke Signs & Symptoms Discharge Data Primary Care Provider: Vinayak Carreon Discharges patient from system. Discharge Date/Time: 06/02/23 12:26 Quality VTE Deep Vein Thrombosis/Pulmonary Embolism Present on Admission: No
[2023-06-02 08:00] VITALS: BP 130/64; PULSE 62; RESP 17; TEMP 36.3; O2SAT 98
--- NOTE | 2023-06-02 08:26 | CM.DPC ---
DCP Discharge home with HH Per MD, pt's H&H seems to have improved and likely stable to d/c home today if bp remains stable. Per RN, will be checking vitals this morning and providing pt with his morning meds to help determine if medically stable to d/c. SW received a call from [facility] who confirms they can accept pt's new referral and also received the F2F and HH orders and just need d/c summary and already called pt's spouse and scheduled first home visit. SW met bedside with pt and provided the [facility] brochure and pt hopeful to d/c home today and spouse will be bedside later this morning and will provide transport home if cleared to discharge. Plan: SW to follow for plan of discharge home today via spouse POV and [facility] to follow after discharge for HH RN/PT/OT/NURSING ASSOC. GORDON Viramontes
[2023-06-02 09:26] VITALS: BP 130/64
[2023-06-02] MEDS: METOPROLOL ER 25 MG TABLET PO (09:26)
[2023-06-02 09:27] VITALS: BP 130/64
[2023-06-02] MEDS: ESCITALOPRAM 10 MG TABLET PO (09:27)
[2023-06-02] MEDS: DOCUSATE 100 MG CAPSULE PO (09:27)
[2023-06-02] MEDS: LOSARTAN 50 MG TABLET 100 MG PO (09:27)
[2023-06-02] MEDS: polyethylene glycoL 3350 17 GM POWD.PACK PO (09:29)
[2023-06-02] MEDS: SODIUM CHLORIDE 0.9% FLUSH 10 ML IV (09:29)
[2023-06-02] MEDS: OXYCODONE IR 5 MG TABLET PO (09:34)
--- NOTE | 2023-06-02 10:06 | PT.IPTN ---
Current Diagnoses Anemia, unspecified (05/30/23) Cardiac arrhythmia, unspecified (05/30/23) Periprosthetic fracture around internal prosthetic left hip joint, initial encounter (05/30/23) Surgery Performed Operation Date: 05/30/23 15:00 Actual Procedures p ORIF periprosthetic hip fracture (Left) - Nida Troy MD Physical Therapy Treatment Note M2 PT-IP Current Condition Start: 05/31/23 13:37 Freq: NEEDED Status: Active Protocol: Document 06/01/23 15:32 SP (Rec: 06/01/23 16:23 SP [id number]) Physical Therapy Current Condition Current Condition Evaluation Date 05/31/23 Treatment Diagnosis s/p ORIF greater tuberosity fracture of left hip; weakness Onset Date 05/30/23 M3 PT-IP Subjective Start: 05/31/23 13:37 Freq: NEEDED Status: Active Protocol: Document 06/02/23 11:05 TS (Rec: 06/02/23 11:40 TS [id number]) Subjective Physical Therapy Visit Type Type Treatment Note Visit Start Time 10:06 Visit Stop Time 10:53 Total Visit Minutes 47 Notes BP supine 130/57, Spo2 96%, HR 60. Physical Therapy Visit Comments Patient Comments Pt found resting in bed, reports pain is 4/10 at rest and just received some pain medications, agreeable to PT. Patient Goals To go back home with to assist him. Therapy Pain Assessment Pain When Pain Assessed At Rest Pain Present Pain Present Pain Reported Location Left Hip Intensity 4 Scale Used Numeric (0 - 10) Pain Behaviors Facial Grimacing,Wincing Pain Management Techniques Distraction,Modification of Treatment,Re-positioning, Timing of Activity with Medications M4 PT-IP Mobility and Gait Start: 05/31/23 13:37 Freq: NEEDED Status: Active Protocol: Document 06/02/23 11:05 TS (Rec: 06/02/23 11:40 TS [id number]) PT-Bed Mobility Assessment Supine to Sit Supine to Sit Minimal Assistance,1 Person Assistance,Bedrails Scooting Scooting to Edge of Bed Contact Guard Assistance PT-Transfer Assessment Sit to and From Stand Sit to and from Stand Contact Guard Assistance, Minimal Assistance,1 Person Assistance,Use of Upper Extremities Equipment Transfer Assistive Device Gait Belt,Front Wheeled Walker Comments Mobility Comments Supine to sit with HOB elevated 30D Marvin for uprighting trunk and LLE assist to EOB from spouse, provided cues for BUE support and handrail assist. He scooted to EOB CGA with use of B handrail assist, cues provided for feet flat on the floor. Pt sat on EOB, educated /instructed spouse on donning of gait belt. Sit to stand CGA from spouse from elevated bed with FWW, pt had no retroleaning, c/o increasing pain. He ambulated ~80'CGA/SBA with FWW, provided cues for step to gait pattern and leading with LLE. Pt sat in w/ c for rest break, pt was brought to stairs. Sit to stand from w/c Marvin, provided cues for BUE support pushing from arms of chair. Pt performed steps x3 with B handrail assist and CGA from spouse, provded cues and education to spouse and pt on stair sequencing. Pt was brought back to room in w/c, pt left in bedside chair with spouse present, RN was notified. Gait Assessment Gait Gait Assistance Required: Standby Assistance,Contact Guard Assist,1 Person Assist Distance (Feet) 80 Assistive Devices Assistive Device Gait Belt,Front Wheeled Walker Gait Deviations General Gait Pattern Antalgic,Decreased Stride Length,Decreased Feet Clearance,Step-to Gait Factors Limiting Gait Function Factors Limiting Gait Function Decreased Activity Tolerance, Decreased Strength,Limited Range of Motion,Pain,Poor Safety Awareness Comments Gait Comments See mobility comments. Stair Climbing Assessment Evaluation Level of Assist On Stairs Contact Guard Assistance,1 Person Assistance Devices Stair Climbing Assistive Devices Left Railing,Right Railing Technique/Endurance Stair Climbing Direction Ascend and Descend Stair Climbing Technique Step to Step Number of Steps Climbed 3 Comments Stair Climbing Comments See mobility comments PT-Balance Assessment Sitting Balance and Reactions Static Sitting Balance Ability Good Dynamic Sitting Balance Ability Good Standing Balance and Reactions Static Standing Balance Ability Good Dynamic Standing Balance Ability Fair Device Used FWW M5 PT-IP Objective Assessments Start: 05/31/23 13:37 Freq: NEEDED Status: Active Protocol: Document 05/31/23 13:37 AB (Rec: 05/31/23 13:58 AB [id number]) Orientation Orientation/Cognition Level of Alertness Alert Orientation Name,Date,Place,Situation Language Function Ability No Deficits Noted Safety Awareness Understands Safety Issues Memory Description No Deficits Noted Gross Range of Motion Upper Extremity ROM Assessment Within Functional Limits Lower Extremity ROM Assessment Left Impaired Strength Upper Extremity Strength Assessment Within Functional Limits Lower Extremity Strength Assessment Left Impaired M6 PT-IP Treatment Start: 05/31/23 13:37 Freq: NEEDED Status: Active Protocol: Document 06/02/23 11:05 TS (Rec: 06/02/23 11:40 TS [id number]) Physical Therapy Treatment Education Education Provided Precautions,Weight Bearing Status,Safety Brace Education Patient,Caregiver M7 PT-IP Assessment and Plan Start: 05/31/23 13:37 Freq: NEEDED Status: Active Protocol: Document 06/02/23 11:05 TS (Rec: 06/02/23 11:40 TS [id number]) PT Summary Assessment and Plan Potential Rehabilitation Potential Good Summary Impairments Pain,ROM,Strength,Balance,Bed Mobility,Transfers,Gait, Activity Tolerance Progress Towards Goals Progressing Toward Goals Assessment Summary Pt is progressing well with his mobility this morning. He peformed supine to sit w/Marvin from spouse for uprighting trunk and moving of LLE due to pain/poor strength. He is CGa for sit to stand from elevated bed and Marvin from lower surface of w/c. He progressed his gait to ~80' CGA/SBA with FWW, does require max cueing for step to gait sequencing. He progressed stairs to x3 with CGA from spouse and B handrail assist, pt had no buckling or LOB. Education and instruction provided to spouse on assisting pt with bed mobility , donning of gait belt, sit to stands, proper handplacement on belt with gait and assisting pt with stairs. PT is recommending pt return home with 24/7 assist and HHPT. Spouse can assist pt at home and daughter and RICKI live close by to help . Goals Bed Mobility Goal Standby Assistance Transfer Goal Standby Assistance,Front Wheeled Walker Gait Goal Standby Assistance,Front Wheel Walker Gait Distance 50 Days to Meet Goals 5 Frequency of Treatment Frequency Of Treatment Twice a Day Treatment Plan Physical Therapy Treatment Plan Bed Mobility Training,Transfer Training,Gait Training, Therapeutic Exercise,Balance Retraining,Post Op Education, Discharge Planning,Hot or Cold Pack,Neuromuscular Re-ed Precautions Other Precautions No active hip ABD for 6 weeks Weight Bearing Status Weight Bearing Status Weight Bear as Tolerated Recommendations To Nursing Amount of Assist Needed 1 Person Assist Discharge Recommendations PT Discharge Recommendations Home with 24/7 Assist Available,Home Health Equipment Needed for Home Before Spouse acquired FWW and Discharge commode. Pt has lift recliner at home he will be sleeping in . Transportation Needs at Discharge Private Vehicle
--- NOTE | 2023-06-02 12:03 | OT.IP.TRT ---
Current Diagnoses Anemia, unspecified (05/30/23) Cardiac arrhythmia, unspecified (05/30/23) Periprosthetic fracture around internal prosthetic left hip joint, initial encounter (05/30/23) Surgery Performed Operation Date: 05/30/23 15:00 Actual Procedures p ORIF periprosthetic hip fracture (Left) - Nida Troy MD Occupational Therapy Treatment Note M2 OT-IP Current Condition Start: 06/01/23 15:36 Freq: Status: Discharge Protocol: Document 06/01/23 15:36 CGR (Rec: 06/01/23 15:53 CGR [id number]) Occupational Therapy Current Condition Current Condition Evaluation Date 06/01/23 Treatment Diagnosis Fall with L hip pain, ORIF L hip Diagnosis Onset Date 05/30/23 Weight Bearing Status Weight Bearing Status Weight Bear as Tolerated M3 OT- IP Subjective and Pain Start: 06/01/23 15:36 Freq: Status: Discharge Protocol: Document 06/02/23 11:23 [facility] (Rec: 06/02/23 12:55 [facility] [id number]) OT- Subjective Occupational Therapy Visit Type Type Treatment Note Visit Start Time 11:23 Visit Stop Time 12:03 Total Visit Minutes 40 Occupational Therapy Visit Comments Patient Comments Pt agreed to try to shower prior to going home. Patient/Caregiver Goals To go home. OT Pain Assessment Pain When Pain Assessed At Rest Pain Present Pain Present Pain Reported Location Left Hip Intensity 4 Scale Used Numeric (0 - 10) M4 OT- IP ADL's Start: 06/01/23 15:36 Freq: Status: Discharge Protocol: Document 06/02/23 11:23 [facility] (Rec: 06/02/23 12:55 [facility] [id number]) OT MIB-Hjra-Cmaonkb General Evaluation Self-Feeding Ability Independent OT ADL-Grooming Comments OT Grooming Comments Not performed. OT ADL-Oral Care Comments Oral Care Comments Not performed. 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 OT ADL-Toileting Comments OT Toileting Comments Suggested pt use a urinal at home. OT ADL-Bathing General Evaluation Bathing Ability Maximal Assistance Comments OT Bathing Comments Pt having low BP and therefore opted for sponge bath. Pt's able to assist for his pericare and washing his back . M5 OT- IP IADL's Start: 06/01/23 15:36 Freq: Status: Discharge Protocol: Document 06/01/23 15:36 CGR (Rec: 06/01/23 15:53 CGR [id number]) OT-Instrumental Activities of Daily Living Deficits IADL Deficits Identified No Deficits Home Safety Awareness Awareness of Need for Assistance at Home Good Awareness Ability to Problem Solve Emergency Able to Problem Solve Situations Medication Management Medication Management Caregiver Administers Money Management Money Management Caregiver Provides Assistance Meal Preparation Meal Preparation Caregiver Provides Assist Asphalt Screed Operator Asphalt Screed Operator Caregiver Provides Assist Driving Driving Comments Pt does drive at baseline. M6 OT- IP Functional Cognition Start: 06/01/23 15:36 Freq: Status: Discharge Protocol: Document 06/02/23 11:23 [facility] (Rec: 06/02/23 12:55 [facility] [id number]) Cognitive Factors Limiting Selfcare Function Cognitive Comments Cognitive Assessment Comments Pt able to follow commands and just needing reminders for safety, push up on the chair to stand and reach back before sitting down. M7 OT- IP Mobility and Balance Start: 06/01/23 15:36 Freq: Status: Discharge Protocol: Document 06/02/23 11:23 [facility] (Rec: 06/02/23 12:55 [facility] [id number]) OT-Transfer Assessment Sit to and From Stand Sit to and from Stand Minimal Assistance Technique Transfer Destination Chair Transfer Technique Stand Step Pivot Devices Transfer Assistive Devices Gait Belt,Front Wheeled Walker Comments Mobility Comments Pt able to come to stand with BOUBACAR. Pt's able to jonathon/ doff the gait belt and assist pt safely. Pt's BP sitting 102 /53 and standing 84/42 and then again sitting 113/57 and standing 101/86. Able to notify pt's nurse and hospitalist of pt's low BP. OT- Balance Assessment Sitting Balance and Reactions Static Sitting Balance Ability Good Dynamic Sitting Balance Ability Good Standing Balance and Reactions Static Standing Balance Ability Good M8 OT- IP Objective Assessments Start: 06/01/23 15:36 Freq: Status: Discharge Protocol: Document 06/01/23 15:36 CGR (Rec: 06/01/23 15:53 CGR [id number]) OT Gross Range of Motion Upper Extremity Range of Motion Assessment Within Functional Limits OT Strength Upper Extremity Strength Assessment Within Functional Limits Comments Strength Comments 4/5 throughout OT- Coordination Assessment Upper Extremity Finger to Nose Test Within Functional Limits Finger Tapping Test Within Functional Limits OT-Muscle Tone Assessment Muscle Tone WNL Yes OT Sensation Assessment Edema Edema Absent M9 OT- IP Assessment and Plan Start: 06/01/23 15:36 Freq: Status: Discharge Protocol: Document 06/02/23 11:23 [facility] (Rec: 06/02/23 12:55 [facility] [id number]) OT Summary Assessment and Plan Potential Rehabilitation Potential Good Analytic Complexity at Evaluation Moderate Summary OT Impairments Pain,Balance,Functional Cognition,Functional Mobility, Grooming,Dressing,Toileting, Bathing,Toilet Transfers, Shower Transfers,Activity Tolerance Progress Towards Goals Progressing Toward Goals Assessment Summary Pt's present and able to assist to assist pt for all ADl and mobility needs with good safety. Pt having low BP while standing, but otherwise doing well. Pt to go home when medically stable. Pt will benefit from home health. Goals Grooming Goal Independent Dressing Goal Independent Toileting Goal Independent Bathing Goal Independent Toilet Transfer Goal Independent Shower Transfer Goal Independent Days to Meet Goals 7 Frequency of Treatment Frequency Of Treatment Once a Day Treatment Plan OT Treatment Plan ADL Training,Functional Mobility,Patient/Family Education,Discharge Planning Discharge Recommendations OT Discharge Recommendations Home with Assistance,Home Health Transportation Needs at Discharge Private Vehicle
--- NOTE | 2023-06-02 12:18 | PC.NURSE ---
Pt is dressed and ready for discharge home with Spouse. IV has been removed and Pt had a sponge bath. Reminded Pt to get up slowly and take his time walking. Also to follow his hip precautions. Discussed d/c meds, time of last dose, reviewed stroke education, s/s of infection and when to call MD. Reminded Pt and Spouse to call for follow up appointments with Cardiology and Dr. Troy. Pt and Spouse denied further questions and Pt was taken out via w/c by [employer] S[employer]OL TUTOR to POV with Spouse and all belongings.
== END 2023-06-02 12:26 | disposition home health service (06) | DRG 481 ==
LOC: ED 02:42 → AC 03:00
PROVIDERS: Orthopaedic Surgery Foot and Ankle Surgery; Student in an Organized Health Care Education/Training Program; Admitting Provider Internal Medicine; Emergency Provider Emergency Medicine; Family Provider Internal Medicine Cardiovascular Disease; PCP Family Medicine; Referring Provider Emergency Medicine; Visit Provider Internal Medicine
PROC: 0QS704Z Reposition Left Upper Femur with Internal Fixation Device, Open Approach (ICD-10-PCS; principal; 2023-05-30 15:00)
DX: S72.112A Displaced fracture of greater trochanter of left femur, initial encounter for closed fracture (principal); D62 Acute posthemorrhagic anemia; M97.02XA Periprosthetic fracture around internal prosthetic left hip joint, initial encounter; I49.8 Other specified cardiac arrhythmias; I10 Essential (primary) hypertension; W01.0XXA Fall on same level from slipping, tripping and stumbling without subsequent striking against object, initial encounter; Z87.891 Personal history of nicotine dependence
CPT/HCPCS: 36415; 36430; 73502; 73700; 76000; 80048; 80053; 83735; 85025; 85027; 86850; 86900; 86901; 96374; 97110; 97116; 97161; 97166; 97530; 97535; 99284; 99285; P9016; C8929; J0171; J0690; J1100; J1170; J1650; J2405; J2704; J3010; J7050; Q9957

== ENCOUNTER → 2023-08-17 10:26 | Outpatient (CLI) | payer OTHER, SELFPAY ==
[2023-05-30 03:05] VITALS: BMI 26.4
--- NOTE | 2023-08-17 | DI.ECHO.S_ITS ---
[facility]---------+ [facility] +---------+ : : [address] : : : : [id number] : : : : Phone: [phone]+ Echocardiogram Report + + :Name: OBED LINDQUIST Study Date: 08/17/2023 Height: 69 in : :[facility] ReadingLocation: Weight: 180 lb : : Gender: Male BSA: 2.0 m2 : :: 1935 Age: 87 yrs BP: 103/65 mmHg: :Reason For Study: ATRIAL FIBRILLATION : :Ordering Physician: CRESENCIO, : :RUPALI Performed By: Sabi Teresa : :Referring: RUPALI DUPONT : + + Interpretation Summary The ejection fraction is estimated to be 50-55%. Diastolic function could not be accurately assessed due to contradictory data. The right ventricle is normal in size and function. There is mild aortic stenosis. There is mild aortic regurgitation. There is mild tricuspid regurgitation. The right ventricular systolic pressure is estimated to be at least 23 mmHg based on an estimated right atrial pressure of 3 mm Hg. Compared to the prior study dated 05/30/2023, the gradient across the aortic valve has decreased however interrogation is limited on the current study. Procedure: A two-dimensional transthoracic echocardiogram with color flow and Doppler was performed. The study quality was technically adequate. Comparison is made with the echocardiogram of 05/30/2023. The patient was in sinus rhythm with heart rates between 55-63 bpm during the exam. Left Ventricle: The left ventricle is normal in size and wall thickness. The ejection fraction is estimated to be 50-55%. Diastolic function could not be accurately assessed due to contradictory data. Right Ventricle: The right ventricle is normal in size and function. Atria: The left atrial size is normal. Right atrial size is normal. There is no Doppler evidence for an interatrial shunt. Mitral Valve: There is mild mitral annular calcification. The mitral valve leaflets are mildly calcified. There is trace mitral regurgitation. Aortic Valve: The aortic valve is moderately calcified. There is moderately reduced leaflet mobility. The peak aortic velocity is 2.8 m/sec. The aortic valve mean gradient is 19 mmHg. There is mild aortic stenosis. There is mild aortic regurgitation. Tricuspid Valve: The tricuspid valve is normal in structure and function. There is mild tricuspid regurgitation. The right ventricular systolic pressure is estimated to be at least 23 mmHg based on an estimated right atrial pressure of 3 mm Hg. Pulmonic Valve: The pulmonic valve leaflets are thin and pliable; valve motion is normal. There is mild pulmonic regurgitation. Great Vessels: The aortic root is normal size. The dimensions of the ascending aorta are normal. The IVC is of normal diameter and collapses greater than 50% with a sniff. This suggests a low right atrial pressure of 3 mm Hg. Pericardium/ Pleura There is no pericardial effusion. There is no pleural effusion. MMode/2D Measurements & Calculations LVIDd: 5.0 cm LVOT diam: 2.4 cm LVIDs: 3.4 cm Ao root diam: 3.3 cm FS: 31.1 % asc Aorta Diam: 3.4 cm EPSS: 0.96 cm Ao Arch Diam (Prox Trans): 2.8 cm IVSd: 0.91 cm LVPWd: 0.77 cm LV dia. diameter/BSA (cm/m^2): 2.5 LV sys. diameter/BSA (cm/m^2): 1.7 LA A2 area: 20.5 cm2 RA long axis: 4.3 cm LA A4 area: 17.8 cm2 RA area: 12.5 cm2 LA length (vol): 5.0 cm RA vol: 30.7 ml LA vol: 62.0 ml RA : 15.6 ml/m2 LA vol index: 31.4 ml/m2 IVC diam: 1.2 cm RVD1 (basal): 3.9 cm TAPSE: 1.9 cm Doppler Measurements & Calculations Ao V2 max: 278.7 cm/sec LVOT Max Juanjo: 118.4 cm/sec Ao V2 mean: 204.1 cm/sec LV V1 max P.6 mmHg Ao max P.1 mmHg LV V1 VTI: 21.7 cm Ao mean P.1 mmHg KEIRY(I,D): 1.7 cm2 Ao V2 VTI: 56.4 cm KEIRY(V,D): 1.9 cm2 sev ratio: 0.38 KEIRY indexed to BSA (cm^2/m^2): 0.88 MV E max juanjo: 66.2 cm/sec TR max juanjo: 212.0 cm/sec MV A max juanjo: 98.0 cm/sec TR max P.7 mmHg MV E/A: 0.68 PA V2 max: 110.6 cm/sec Med Peak E' Juanjo: 4.4 cm/sec PA V2 mean: 80.4 cm/sec E/E' med: 14.9 PA mean P.9 mmHg Lat Peak E' Juanjo: 4.5 cm/sec PA pr(Accel): 31.0 mmHg E/E' lat: 14.7 E/e' average: 14.8 MV dec time: 0.37 sec SV(LVOT): 98.4 ml Reading Physician:05:21 PM
--- NOTE | 2023-08-17 | DI.NM.S_ITS ---
PROCEDURE: NM SARAH PERF SPECT R&S PHARM Rest and pharmacological stress myocardial perfusion SPECT with gated imaging and ejection fraction RADIOPHARMACEUTICAL: 12.9 mCi Tc-99m tetrafosmin IV at rest and 25.2 mCi Tc-99m tetrafosmin IV at peak effect of pharmacological stress. A 1-ygl-uxaihbzi was performed. INDICATIONS: Paroxysmal atrial fibrillation TECHNIQUE: Radiopharmaceutical was injected at peak stress test, and also at rest. SPECT images were obtained. SPECT myocardial perfusion images were displayed in short axis, horizontal long axis, and vertical long axis views. Gated images were reviewed using iPowow software. COMPARISON: None. CARDIAC STRESS: A pharmacologic stress test was performed under the supervision of an attending staff, using an infusion of regadenoson 0.4 mg IV. Hemodynamic data: There is normal blood pressure and heart rate response to pharmacologic stress. Symptoms: The patient denied anginal chest pain. EKG: No diagnostic changes of ischemia; no ectopy. FINDINGS: Raw data: There is good myocardial uptake of radiotracer. No significant motion artifacts. Wtdz-fx-wypsq ratio is 0.33 (normal is less than 0.38 for tetrafosmin tracer). Left ventricle function: Gated images demonstrate normal left ventricular wall thickening. No segmental wall motion abnormalities. No transient ischemic dilation; TID is 0.65 (normal less than 1.3). Left ventricle resting end diastolic volume is 142 mL. Left ventricle stress ejection fraction is 61%; normal range is above 45%. Myocardial perfusion: There is a small size, moderate intensity fixed apical inferolateral wall defect. No reversible perfusion defects. IMPRESSION: Low risk study without reversible perfusion defects. The small size, moderate intensity fixed apical inferolateral wall defect is occurring in the setting of normal wall motion and likely represents attenuation artifact. Increased LVEDV by calculation with normal LV function. Dictated by: Jazmyne Preston D.O. on 08/17/2023 at 17:49 Approved by: Jazmyne Preston D.O. on 08/17/2023 at 17:52
== END ==
PROVIDERS: Family Provider Internal Medicine Cardiovascular Disease; PCP Physician Assistant; Referring Provider Internal Medicine Cardiovascular Disease; Visit Provider Internal Medicine Cardiovascular Disease
DX: I48.0 Paroxysmal atrial fibrillation (principal); I47.29 Other ventricular tachycardia; I65.23 Occlusion and stenosis of bilateral carotid arteries; I08.3 Combined rheumatic disorders of mitral, aortic and tricuspid valves
CPT/HCPCS: 78452; 93017; 93306; A9502; J2785

== ENCOUNTER 2023-08-20 17:00 | Emergency (ER) | payer OTHER, SELFPAY ==
[2023-05-30 03:05] VITALS: BMI 26.4
[2023-08-20 17:10] VITALS: BP 133/62; PULSE 50; RESP 16; TEMP 36.7; O2SAT 98; BMI 25.8
--- NOTE | 2023-08-20 17:16 | DI.RAD.S_ITS ---
PROCEDURE: XR WRIST RT MIN 3V INDICATIONS: fall, pain, swelling TECHNIQUE: 4 views of the wrist were acquired. COMPARISON: [facility], CR, XR WRIST RT MIN 3V, 09/11/2019, 9:30. FINDINGS: Bones: Acute comminuted and impacted fracture involving distal radius is seen with fracture line extending to radiocarpal joint space. There is slight dorsal angulation and displacement at fracture site. 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 No suspicious bony lesions. Soft tissues: No suspicious soft tissue calcifications. Soft tissue swelling surrounding right wrist is seen. IMPRESSION: Acute comminuted, impacted and slightly displaced intra-articular fracture of distal radius as above. Dictated by: Oleksandr Arevalo M.D. on 08/20/2023 at 17:33 Approved by: Oleksandr Arevalo M.D. on 08/20/2023 at 17:34
--- NOTE | 2023-08-20 17:53 | ED.UPPEXIN ---
HPI - Extremity Injury (Upper) <Lizbeth Nelson PA-C - Last Filed: 08/20/23 18:22> General Chief Complaint: Extremity Injury, Upper Stated Complaint: fall, rt wrist injury Time Seen by Provider: 08/20/23 17:31 Source: patient and family Mode of arrival: Ambulatory History of Present Illness HPI narrative: Patient is an 87 male who sustained a mechanical fall just prior to arrival onto his outstretched right hand. He did not hit his head, there was no LOC, no back pain. He is on no blood thinner medicines. He reports he feels well aside from 6/10 pain in his right wrist. He is a former smoker, currently drinks a couple beers a couple times a week. Related Data Home Medications Medication Instructions Recorded Confirmed atorvastatin 20 mg tablet 20 mg PO ONCE PM cholesterol 05/30/23 05/30/23 escitalopram oxalate 10 mg tablet 10 mg PO DAILY 05/30/23 05/30/23 Previous Rx's Medication Instructions Recorded metoprolol succinate 25 mg 25 mg PO DAILY #30 tabs 06/02/23 tablet,extended release 24 hr tramadol 50 mg tablet 50 mg PO Q8H PRN pain #15 tabs 06/02/23 Allergies Allergy/AdvReac Type Severity Reaction Status Date / Time No Known Drug Allergies Allergy Verified 09/11/19 09:30 Review of Systems <Lizbeth Nelson PA-C - Last Filed: 08/20/23 18:22> Review of Systems ROS Unobtainable: All systems reviewed & are unremarkable except as noted in HPI and below Patient History <Lizbeth Nelson PA-C - Last Filed: 08/20/23 18:22> Medical History (Updated 08/20/23 @ 18:19 by Lizbeth Nelson PA-C) Benign prostatic hyperplasia Hypertension History of colon polyps Surgical History History of colonoscopy Social History household members: spouse and significant other Smoking Status: Former smoker Smoking Status: Former smoker alcohol intake frequency: a few times a week Alcohol type: beer Substance Use Type: does not use Exam <Lizbeth Nelson PA-C - Last Filed: 08/20/23 18:22> Narrative Exam Narrative: GENERAL: 87 year old patient appears stated age. Well-developed patient, in no distress. NEURO: AOx3. HEAD: Atraumatic. Normocephalic. EYES: Pupils equal round and reactive. Extraocular motions intact. No scleral icterus. No injection or drainage. ENT: Nose without bleeding or purulent drainage. Airway patent. RESPIRATORY: No distress or increased work of breathing. EXTREMITIES: Moderate edema of the right wrist, no open fracture or wounds. No ecchymosis. Patient is able to make a fist with his right hand, make a thumbs-up opposition thumb and 5th finger is intact. Sensation is intact and capillary refill is 2 seconds. Hand is warm. SPINE: No midline spinal tenderness or step-offs. SKIN: No rash or erythema of visible areas Initial Vital Signs Initial Vital Signs: Vital Signs Temperature 98.1 F 08/20/23 17:10 Pulse Rate 50 L 08/20/23 17:10 Respiratory Rate 16 08/20/23 17:10 Blood Pressure 133/62 08/20/23 17:10 Pulse Oximetry 98 08/20/23 17:10 Oxygen Delivery Method Room Air 08/20/23 17:10 <Hernandez Zaragoza DO - Last Filed: 08/20/23 18:23> Initial Vital Signs Initial Vital Signs: Vital Signs Temperature 98.1 F 08/20/23 17:10 Pulse Rate 50 L 08/20/23 17:10 Respiratory Rate 16 08/20/23 17:10 Blood Pressure 133/62 08/20/23 17:10 Pulse Oximetry 98 08/20/23 17:10 Oxygen Delivery Method Room Air 08/20/23 17:10 Procedures <Lizbeth Nelson PA-C - Last Filed: 08/20/23 18:22> Orthopedic Splinting/Casting Injury #1: Time of procedure: 18:00 Side: right Upper Extremity Injury Location: wrist Upper Extremity Immobilizer: sling/shoulder immobilizer and sugar tong splint (Reverse) Post splinting neuro exam: intact Post splinting vascular exam: intact Placed by: Nursing Additional Comments: Reassessed by provider after nursing place splint. Course <Lizbeth Nelson PA-C - Last Filed: 08/20/23 18:22> Orders Ordered: ED Orders 08/20/23 17:16 XR wrist RT min 3V Stat Discontinued Medications Acetaminophen (Acetaminophen 325 Mg Tablet) 650 mg PO NOW ONE Stop: 08/20/23 17:50 Last Admin: 08/20/23 17:54 Dose: 650 mg Documented By: ANTWON Vital Signs Vital signs: Vital Signs - 8 hr 08/20/23 17:10 Temperature 98.1 F Pulse Rate 50 L Respiratory Rate 16 Blood Pressure 133/62 Pulse Oximetry 98 Oxygen Delivery Method Room Air <Hernandez Zaragoza DO - Last Filed: 08/20/23 18:23> Orders Ordered: ED Orders 08/20/23 17:16 XR wrist RT min 3V Stat Discontinued Medications Acetaminophen (Acetaminophen 325 Mg Tablet) 650 mg PO NOW ONE Stop: 08/20/23 17:50 Last Admin: 08/20/23 17:54 Dose: 650 mg Documented By: ANTWON Vital Signs Vital signs: Vital Signs - 8 hr 08/20/23 17:10 Temperature 98.1 F Pulse Rate 50 L Respiratory Rate 16 Blood Pressure 133/62 Pulse Oximetry 98 Oxygen Delivery Method Room Air MDM - Extremity Injury (Upper) <Lizbeth Nelson PA-C - Last Filed: 08/20/23 18:22> Imaging Data Extremity x-ray #1: Radiologist's Impression: PROCEDURE: XR WRIST RT MIN 3V INDICATIONS: fall, pain, swelling TECHNIQUE: 4 views of the wrist were acquired. COMPARISON: [facility], , XR WRIST RT MIN 3V, 09/11/2019, 9:30. FINDINGS: Bones: Acute comminuted and impacted fracture involving distal radius is seen with fracture line extending to radiocarpal joint space. There is slight dorsal angulation and displacement at fracture site. 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 No suspicious bony lesions. Soft tissues: No suspicious soft tissue calcifications. Soft tissue swelling surrounding right wrist is seen. IMPRESSION: Acute comminuted, impacted and slightly displaced intra-articular fracture of distal radius as above. Dictated by: Oleksandr Arevalo M.D. on 08/20/2023 at 17:33 Approved by: Oleksandr Arevalo M.D. on 08/20/2023 at 17:34 [facility] Narrative Medical decision making narrative: Multiple etiologies for patient's symptoms considered including, but not limited to: Right wrist sprain, fracture X-ray shows impacted comminuted fracture of the right wrist. Patient denies tenderness in his fingers or hand and in his upper forearm/elbow. X-ray reviewed with Dr. Zaragoza who advises no need for reduction as there is not significant angulation. Splint as appropriate and referred to orthopedics. Patient and instructed on appropriate care including rest, ice, elevation and Tylenol for pain control. No opiate medication given as patient is already a significant fall risk. Discussed adjusting the tightness of the compression bandage if his hand is numb, cold, blue. If adjusting the wrap does not improve it, that he should come back to the emergency room. He needs to call the orthopedic clinic and make a follow up appointment. Patient and state understanding of the instructions. Patient's symptoms improved over duration of stay with above-stated therapies. Findings and discharge diagnosis discussed with patient/family followed by verbalization of understanding Return precautions discussed with patient/family whom verbalize understanding of diagnosis and plan Discharge Plan Departure Patient Disposition: Home Clinical Impression: Right wrist fracture Qualifiers: Encounter type: initial encounter Fracture type: closed Qualified Code(s): S62.101A - Fracture of unspecified carpal bone, right wrist, initial encounter for closed fracture Instructions: DI for Wrist Fracture Activity Restrictions/Additional Instructions: *You have been diagnosed with right wrist fracture. You have been given a sling to use to support your arm; it is not necessary to use this but it can be helpful while you were up in about so that you do not have to lift the weight of the splint. You have been diagnosed with a fracture. You are advised to use R: rest. take it easy and listen to your body! I: ice. apply ice for 20 minutes every 2 hours while awake. Do not put ice directly on the skin. C: compression. Gentle compression with violeta wrap or splint will decrease pain and swelling. E: elevation. Keep extremity elevated above the heart whenever possible. Use tylenol for inflammation and pain. You can take 650 mg of Tylenol every 4-6 hours or 1000 mg every 8 hours. *What to do: *Please continue to take your regular medications as directed. [ ] New medication prescriptions sent to your pharmacy: [ ] [ ] New medication written as a paper prescription [x ] No new medications given *Please follow up with your primary care provider in 2-3 days, call for an appointment. Let them know you were seen in the Emergency Department and that we ask that you be seen in follow up. We will electronically transmit a record of today's note if your PCP is in our system *If you do not have a primary care provider please contact the [facility] Resource line at [phone]. They will ask some questions about your medical history and help get you set up with a doctor in the community. *Return to Emergency Department if you should have any new, worsening or concerning symptoms, such as [fever greater than 101 F, shaking chills, worsening pain, persistent vomiting or other concerning symptoms]. Prescriptions: No Action escitalopram oxalate 10 mg tablet 10 mg PO DAILY atorvastatin 20 mg tablet 20 mg PO ONCE PM metoprolol succinate 25 mg Tablet Extended Release 24 Hr 25 mg PO DAILY Qty: 30 0RF tramadol 50 mg tablet 50 mg PO Q8H PRN (Reason: pain) Qty: 15 0RF Referrals: [facility] [Provider Group] Lolis Augustine PA-C [Primary Care Provider] - Stand Alone Forms: Patient Portal/API ED Sign-out <Hernandez Zaragoza, DO - Last Filed: 08/20/23 18:23> Cosign ED Attending Cosignature Attestation: Dr Zaragoza Co-Sign Statement: I was available for consultation during this patient's emergency department visit. This chart is signed by myself for administrative purposes only. I did not have direct contact with this patient during this visit. They were seen independently by the APC.
[2023-08-20] MEDS: ACETAMINOPHEN 325 MG TABLET 650 MG PO (17:54)
[2023-08-20 18:32] VITALS: BP 130/62; PULSE 51; RESP 18; O2SAT 98
== END 2023-08-20 18:30 | disposition home or self-care (01) ==
PROVIDERS: Emergency Provider Physician Assistant; Family Provider Internal Medicine Cardiovascular Disease; PCP Physician Assistant
DX: S52.571A Other intraarticular fracture of lower end of right radius, initial encounter for closed fracture (principal); W19.XXXA Unspecified fall, initial encounter
CPT/HCPCS: 29125; 73110; 99283

== ENCOUNTER → 2023-10-27 14:46 | Outpatient (CLI) | payer OTHER, SELFPAY ==
[2023-05-30 03:05] VITALS: BMI 26.4
[2023-10-27 15:27] LABS: Add Manual Diff / Slide Review NO; Basophils Absolute Auto 100 /uL (0-100); Basophils Percent Auto 1.3 % (0-2); Eosinophils Absolute Auto 200 /uL (0-450); Hematocrit 37.3 % (41-53); Hemoglobin 12.7 g/dL (13.5-17.5); Lymphocytes Absolute Auto 1600 /uL (1100-4500); Lymphocytes Percent Auto 26.4 % (25-40); Mean Corpuscular HGB Conc 34.2 % (30-36); Mean Corpuscular Volume 87.6 fL (80-100); Monocytes Absolute Auto 700 /uL (0-900); Monocytes Percent Auto 11.9 % (3-14); Neutrophils Absolute Auto 3400 /uL (1500-7000); Neutrophils Percent Auto 56.4 % (50-75); Platelet Count 161 X10^3/uL (150-400); Red Blood Cell Count 4.25 X10^6/uL (4.5-5.9); Red Cell Distribution Width 13.6 % (11.6-14.8); White Blood Cell Count 5.9 X10^3/uL (4.5-11.0)
== END ==
LOC: LAB 14:47
PROVIDERS: Family Provider Internal Medicine Cardiovascular Disease; PCP Physician Assistant; Referring Provider Internal Medicine; Visit Provider Internal Medicine
DX: I35.0 Nonrheumatic aortic (valve) stenosis (principal); I48.91 Unspecified atrial fibrillation
CPT/HCPCS: 36415; 85025

== ENCOUNTER 2024-11-28 15:52 | Emergency (ER) | payer OTHER, SELFPAY ==
[2023-05-30 03:05] VITALS: BMI 26.4
[2024-11-28 15:59] VITALS: BP 143/69; PULSE 73; RESP 16; TEMP 36.1; O2SAT 99; BMI 26.7
--- NOTE | 2024-11-28 16:04 | DI.RAD.S_ITS ---
PROCEDURE: XR HIP W PEL IF DONE RT 2V INDICATIONS: Pain with ambulation, no fall TECHNIQUE: AP pelvis with lateral view(s) of the right hip(s). COMPARISON: [facility], CR, XR PELVIS WITH LATERAL HIP LEFT, 07/07/2023, 14:57. Located Within [facility], CR, XR HIP W PEL IF DONE LT 2V, 05/30/2023, 15:58. Located Within [facility], CR, XR HIP W PEL IF DONE LT 2V, 05/30/2023, 1:31. FINDINGS: Status post bilateral total hip arthroplasty and lateral plate and screw fixation of the proximal left femur with superimposed cerclage cable fixation. Re-identified asymmetric, lateral offset of the femoral stem components relative to the acetabular components, bilaterally. This is more conspicuous on the left total hip arthroplasty. Otherwise, no hardware complication. Diffuse osseous demineralization. No pelvic ring disruption. No acute fracture or dislocation. IMPRESSION: 1. Re-identified lateral offset of the femoral stem components bilaterally, which may be projectional or secondary to malpositioning of the hip arthroplasty components. 2. No acute fracture. Dictated by: Daren Sanchez M.D. on 11/28/2024 at 17:07 Approved by: Daren Sanchez M.D. on 11/28/2024 at 17:11
--- NOTE | 2024-11-28 17:30 | PC.NURSE ---
Patient able to ambulate, fully bear weight, uses walker and has multiple walkers and wheelchair at home. Full ROm. Pain with walking that is completely relieved at rest or seated.
[2024-11-28 18:35] VITALS: BP 122/67; PULSE 67; RESP 18; O2SAT 98
--- NOTE | 2024-11-28 19:00 | ED_ITS ---
HPI - Extremity Problem <Kane Singletary PA-C - Last Filed: 11/28/24 19:03> General Chief complaint: Extremity Problem,Nontraumatic Stated complaint: pain in right hip hx hip replacement Time Seen by Provider: 11/28/24 18:12 Source: patient and family Mode of arrival: Wheelchair History of Present Illness HPI Narrative: 88-year-old male with bilateral hip arthroplasty that was done 30 years ago presents to the ED with 3 days of right-sided hip pain. No trauma or falls. Patient states that he was walking more than usual leading up to this pain. Pain is worse when he is sleeping. Patient is able to bear weight and walk with his walker. No numbness, tingling, weakness. No fever, chills. Related Data Home Medications Medication Instructions Recorded Confirmed atorvastatin 20 mg tablet 20 mg PO ONCE PM cholesterol 05/30/23 05/30/23 escitalopram oxalate 10 mg tablet 10 mg PO DAILY 05/30/23 05/30/23 Previous Rx's Medication Instructions Recorded metoprolol succinate 25 mg 25 mg PO DAILY #30 tabs 06/02/23 tablet,extended release 24 hr tramadol 50 mg tablet 50 mg PO Q8H PRN pain #15 tabs 06/02/23 Allergies Allergy/AdvReac Type Severity Reaction Status Date / Time No Known Drug Allergies Allergy Verified 11/28/24 15:59 Review of Systems <Kane Singletary PA-C - Last Filed: 11/28/24 19:03> Constitutional Constitutional: Denies chills, Denies fatigue, Denies fever(s), Denies frequent falls, Denies lethargy and Denies weakness Eyes Eyes: Denies change in vision, Denies eye discharge, Denies irritation and Denies loss of vision ENT Ears, Nose, Mouth, and Throat: Denies change in voice, Denies dizziness, Denies neck pain, Denies sore throat and Denies throat swelling Cardiovascular Cardiovascular: Denies chest pain, Denies irregular heart rhythm, Denies lightheadedness, Denies palpitations, Denies dyspnea, Denies dyspnea on exertion and Denies orthopnea Respiratory Respiratory: Denies cough, Denies dyspnea, Denies dyspnea on exertion and Denies wheezing Gastrointestinal Gastrointestinal: Denies abdominal pain, Denies change in bowel habits, Denies diarrhea, Denies nausea and Denies vomiting Musculoskeletal Musculoskeletal: Denies neck pain and Denies numbness Comments: Right-sided hip pain Integumentary/Breasts Skin/Breast: Denies pruritus, Denies erythema, Denies rash and Denies wounds Neurologic Neurologic: Denies behavioral changes, Denies confusion, Denies dizziness, Denies frequent falls, Denies loss of vision, Denies numbness and Denies weakness Psychiatric Psychiatric: Denies anxiety, Denies behavioral changes, Denies confusion, Denies depression, Denies homicidal ideation and Denies suicidal ideation Endocrine Endocrine: Denies fatigue, Denies flushing and Denies palpitations Hematologic/Lymphatic Hematologic/Lymphatic: Denies easy bruising Allergic/Immunologic Allergic/Immunologic: Denies urticaria, Denies throat swelling and Denies wheezing Patient History <Kane Singletary PA-C - Last Filed: 11/28/24 19:03> Medical History Benign prostatic hyperplasia Hypertension History of colon polyps Surgical History History of colonoscopy Social History household members: spouse and significant other Smoking Status: Former smoker Smoking Status: Former smoker alcohol intake frequency: a few times a week Alcohol type: beer Exam <Kane Singletary PA-C - Last Filed: 11/28/24 19:03> Narrative Exam Narrative: Const General:?cooperative, healthy appearing and comfortable [facility] Head:?normal to inspection Ears:?hearing grossly normal bilaterally Nose:?external nose normal Face and sinus:?normal facial exam and sinuses nontender Mouth:?oral mucosae normal Throat:?posterior oropharynx normal Eyes General:?appearance normal, both eyes and all related structures Neck Neck:?normal visual inspection and no lymphadenopathy noted Resp Effort & Inspection:?normal respiratory effort Auscultation:?clear to auscultation bilaterally Cardio Rate:?regular rate Rhythm:?regular rhythm Musculoskeletal Patient is able to walk with his walker. No swelling, deformities, tenderness to palpation. Neurovascularly intact. Neuro General:?patient alert, patient awake and patient oriented x3 Initial Vital Signs Initial Vital Signs: Vital Signs Temperature 97.0 F L 11/28/24 15:59 Pulse Rate 73 11/28/24 15:59 Respiratory Rate 16 11/28/24 15:59 Blood Pressure 143/69 H 11/28/24 15:59 Pulse Oximetry 99 11/28/24 15:59 Oxygen Delivery Method Room Air 11/28/24 15:59 <DO Brady Whitt Last Filed: 11/30/24 09:08> Initial Vital Signs Initial Vital Signs: Vital Signs Temperature 97.0 F L 11/28/24 15:59 Pulse Rate 73 11/28/24 15:59 Respiratory Rate 16 11/28/24 15:59 Blood Pressure 143/69 H 11/28/24 15:59 Pulse Oximetry 99 11/28/24 15:59 Oxygen Delivery Method Room Air 11/28/24 15:59 Course <Kane Singletary PA-C - Last Filed: 11/28/24 19:03> Orders Ordered: ED Orders 11/28/24 16:04 XR hip w pel if done RT 2V Stat Vital Signs Vital signs: Vital Signs - 8 hr 11/28/24 15:59 Temperature 97.0 F L Pulse Rate 73 Respiratory Rate 16 Blood Pressure 143/69 H Pulse Oximetry 99 Oxygen Delivery Method Room Air <Saundra Jack DO - Last Filed: 11/30/24 09:08> Orders Ordered: ED Orders 11/28/24 16:04 XR hip w pel if done RT 2V Stat Vital Signs Vital signs: Vital Signs - 8 hr 11/28/24 15:59 Temperature 97.0 F L Pulse Rate 73 Respiratory Rate 16 Blood Pressure 143/69 H Pulse Oximetry 99 Oxygen Delivery Method Room Air MDM - Extremity (Nontraumatic) <TOREY Amezcua Last Filed: 11/28/24 19:03> MDM Narrative Medical decision making narrative: 88-year-old male with bilateral hip arthroplasty that was done 30 years ago presents to the ED with 3 days of right-sided hip pain. Obtained a hip x-ray which shows no acute fracture. Re-identified lateral offset of the femoral stem components bilaterally, which may be projectional or secondary to malpositioning of the hip arthroplasty components. Discussed findings with patient. Recommend follow-up with ortho and PCP as soon as possible. Recommend rest and supportive care for the hip. ED return precautions were discussed with patient. Patient verbalized understanding. Medical records reviewed: Yes Discharge Plan Departure Patient Disposition: Home Clinical Impression: Hip pain Qualifiers: Laterality: right Qualified Code(s): M25.551 - Pain in right hip Instructions: DI for Hip Pain Activity Restrictions/Additional Instructions: You were evaluated in the ED today for right-sided hip pain. Your x-ray did not show any fractures. It is recommended that you follow-up with an orthopedic surgeon to ensure that the hip arthroplasty is aligned and in place. Please follow-up with your PCP as soon as possible. In the meanwhile please rest the hip, take Tylenol, apply lidocaine patches, apply heat. Return to the ED if you have worsening symptoms, numbness, tingling, weakness. Prescriptions: No Action escitalopram oxalate 10 mg tablet 10 mg PO DAILY atorvastatin 20 mg tablet 20 mg PO ONCE PM metoprolol succinate 25 mg Tablet Extended Release 24 Hr 25 mg PO DAILY Qty: 30 0RF tramadol 50 mg tablet 50 mg PO Q8H PRN (Reason: pain) Qty: 15 0RF Referrals: Lolis Augustine PA-C [Primary Care Provider] - Stand Alone Forms: Patient Portal/API/Survey ED Sign-out <Saundra Jack DO - Last Filed: 11/30/24 09:08> Cosign ED Attending Jimature Attestation: I was immediately available in the department for consultation.
== END 2024-11-28 18:40 | disposition home or self-care (01) ==
PROVIDERS: Emergency Provider Student in an Organized Health Care Education/Training Program; Family Provider Internal Medicine Cardiovascular Disease; PCP Physician Assistant
DX: M25.551 Pain in right hip (principal); Z96.643 Presence of artificial hip joint, bilateral
CPT/HCPCS: 73502; 99283

== ENCOUNTER 2025-08-22 08:18 | Emergency (ER) | payer OTHER, SELFPAY ==
[2023-05-30 03:05] VITALS: BMI 26.4
[2025-08-22] VITALS (8 sets, daily range): BP systolic 117–131; BP diastolic 56–68; PULSE 63–80; RESP 18; TEMP 35.7; O2SAT 95–98; BMI 26.6
[2025-08-22] MEDS: LACTATED RINGERS 2,000 ML 1000 ML IV (09:10)
[2025-08-22 10:04] LABS: Appearance Urine UA CLOUDY; Bilirubin Urine UA NEGATIVE (NEGATIVE); Color Urine UA YELLOW; Glucose Urine UA NEGATIVE (Negative); Ketones Urine UA NEGATIVE (NEGATIVE); Leukocyte Esterase Urine UA 2+ (NEGATIVE); Nitrite Urine UA NEGATIVE (Negative); Occult Blood Urine UA 3+ (Negative); Protein Urine UA 2+ (Negative); Specific Gravity Urine UA 1.025 (1.000-1.035); Urobilinogen Urine UA 0.2 E.U./dL (0.2); pH Urine UA 6.0 (4.5-8.0)
[2025-08-22 10:21] LABS: Culture Indicated Urine Specimen Cultured
--- NOTE | 2025-08-22 11:23 | ED.MALEGU ---
HPI - Male Genitourinary General Chief complaint: Urogenital-Male Stated complaint: Possible UTI 1 day Time Seen by Provider: 08/22/25 08:20 Source: patient Mode of arrival: Family Vehicle History of Present Illness HPI Narrative: 89-year-old male with history of BPH. Has required a [place] 1 time in the past. Presenting with penile irritation, no suprapubic pain starting yesterday. Denies fevers, chills, nausea, vomiting, diarrhea, abdominal pain, chest pain, shortness of breath, dizziness, or headache. Related Data Home Medications ?Medication ?Instructions ?Recorded ?Confirmed atorvastatin 20 mg tablet 20 mg PO ONCE PM cholesterol 05/30/23 05/30/23 escitalopram oxalate 10 mg tablet 10 mg PO DAILY 05/30/23 05/30/23 Previous Rx's ?Medication ?Instructions ?Recorded metoprolol succinate 25 mg 25 mg PO DAILY #30 tabs 06/02/23 tablet,extended release 24 hr tramadol 50 mg tablet 50 mg PO Q8H PRN pain #15 tabs 06/02/23 ampicillin 500 mg capsule 500 mg PO QID #28 caps 08/25/25 Allergies Allergy/AdvReac Type Severity Reaction Status Date / Time No Known Drug Allergies Allergy Verified 08/22/25 08:36 Review of Systems Review of Systems ROS Unobtainable: All systems reviewed & are unremarkable except as noted in HPI and below Patient History Medical History (Updated 08/22/25 @ 11:47 by Srinivas Paz MD) Benign prostatic hyperplasia Hypertension History of colon polyps Surgical History History of colonoscopy Social History household members: spouse and significant other Smoking Status: Former smoker Smoking Status: Former smoker tobacco type: cigarettes alcohol intake frequency: a few times a week Alcohol type: beer Exam Initial Vital Signs Initial Vital Signs: Vital Signs Pulse Rate 79 08/22/25 08:26 Blood Pressure 119/65 08/22/25 08:26 Pulse Oximetry 96 08/22/25 08:26 Const General: cooperative, healthy appearing, comfortable, well developed and well hydrated Nutritional Appearance: average body habitus HENCA Head: normal to inspection Ears: external ears normal Nose: external nose normal and nares normal Face and sinus: sinuses nontender, face symmetric, ecchymosis not on the right, not on the left and not bilaterally, erythema not on the right, not on the left and not bilaterally and edema not on the right, not on the left and not bilaterally Mouth: lip normal Eyes General: Yes appearance normal, both eyes and all related structures Eyelids: eyelids normal Sclera: sclerae normal Pupils: PERRL Neck Neck: normal visual inspection Resp Effort & Inspection: normal respiratory effort and able to speak in complete sentences Cardio Rate: regular rate Rhythm: regular rhythm Pulses: radial pulses present GI Inspection: normal to inspection and non-distended General: bimanual renal exam normal bilaterally External: normal external exam Penis: normal penis Back/Spine/Pelvis Back: normal to inspection Skin General: no rashes or lesions noted Neuro General: patient alert, patient awake, patient oriented x3, gait normal, moves all extremities, normal light touch, pain and propioception, no focal motor deficits and CN's II-XI intact bilaterally Cognition: normal cognition Speech: speech normal Gait: normal gait Motor: muscle tone normal throughout Sensory Exam: no sensory deficits noted Extrem General: normal to inspection Psych Appearance: grossly normal Mental Status: mental status grossly normal Speech and Movement: speech and movement normal Mood: congruent mood Attitude: cooperative Thought Process: normal Thought Content: normal Judgment: judgment good Procedures Misc Procedure Additional Comments: Bedside US Bladder Exam Indication: Concern for urinary retention Emergent Views: suprapubic Probe: Phased array. Findings: the bladder is grossly small with an estimated volume of 100 mL there is thickening of the bladder wall consistent with acute UTI Impression: Ultrasound of the bladder consistent with no acute retention and UTI. Chopping Machine Operator: Srinivas Paz MD Time Spent Performing Exam: 10 minutes Patient tolerated procedure well and without complication. Course Orders Ordered: Discontinued Medications Lactated Ringer's (Lactated Ringers) 2,000 mls @ 1,000 mls/hr IV BOLUS ONE Stop: 08/22/25 10:45 Last Infusion: 08/22/25 11:24 Dose: Infused Documented By: Admin: 08/22/25 09:10 Dose: 1,000 mls/hr Documented By: COLLEEN Ceftriaxone Sodium 1,000 mg/ (Sodium Chloride) 100 mls @ 200 mls/hr IV NOW ONE Stop: 08/22/25 11:35 Last Infusion: 08/22/25 12:17 Dose: Infused Documented By: Admin: 08/22/25 11:42 Dose: 200 mls/hr Documented By: RLC Vital Signs Vital signs: Vital Signs - 8 hr 08/22/25 08:26 08/22/25 08:26 08/22/25 08:31 Temperature Pulse Rate 79 80 Respiratory Rate Blood Pressure 119/65 Pulse Oximetry 96 95 Oxygen Delivery Method 08/22/25 08:35 08/22/25 09:00 08/22/25 09:00 Temperature 96.3 F L Pulse Rate 75 71 Respiratory Rate 18 Blood Pressure 119/65 123/56 L Pulse Oximetry 98 96 Oxygen Delivery Method Room Air MDM - Male Genitourinary Lab Data Labs: Lab Results 08/22/25 Range/Units 09:00 Urine Color Yellow Urine Appearance Cloudy Urine pH 6.0 (4.5-8.0) Ur Specific [place] 1.025 (1.000-1.035) Urine Protein 2+ H (Negative) Urine Glucose (UA) Negative (Negative) g/dL Urine Ketones Negative (NEGATIVE) Urine Occult Blood 3+ H (Negative) Urine Nitrate Negative (Negative) Urine Bilirubin Negative (NEGATIVE) Urine Urobilinogen 0.2 (0.2) E.U./dL Ur Leukocyte Esterase 2+ H (NEGATIVE) Urine RBC 10-30/hpf H (0-5/HPF) Urine WBC 30-100/hpf H (0-5/HPF) Ur Squamous Epith Cells 1-5 /hpf (0-5/HPF) Urine Bacteria Few (2-10) H (None) Ur Culture Indicated? Specimen cultured Vol Urine Centrifuged 10ml (spun) [facility] Narrative Medical decision making narrative: Description Patient presents with dysuria starting yesterday patient is stable with no fever no flank pain Lab work considered to evaluate for any e/o severe anemia, electrolyte abnormality (including hypokalemia, hyperkalemia, hyponatremia, hypernatremia, hyperglycemia, hypoglycemia, etc.), thrombocytopenia. PT/PTT/INR to evaluate for e/o coagulopathy. LFTs to evaluate for evidence of acute hepatitis. Lipase to evaluate for evidence of acute pancreatitis. Lactic acid to evaluate for evidence of organ hypoperfusion. However, deferred due to a reassuring history and physical IV abx/IVF hydration empiric treatment of UTI. Given that patient has reassuring vitals, no abdominal pain, no flank tenderness, no concern for acute pyelo at this time or kidney stone patient is stable for discharge. Given that this is a UTI in a man, patient will be discharged on 3rd generation cephalosporins and advised to follow up with PCP as soon as possible. Patient prescribed cefpodoxime Discharge Plan Departure Patient Disposition: Home Clinical Impression: Urinary tract infection Instructions: DI for Urinary Tract Infection (UTI) Prescriptions: New ampicillin 500 mg capsule 500 mg PO QID Qty: 28 0RF No Action escitalopram oxalate 10 mg tablet 10 mg PO DAILY atorvastatin 20 mg tablet 20 mg PO ONCE PM metoprolol succinate 25 mg Tablet Extended Release 24 Hr 25 mg PO DAILY Qty: 30 0RF tramadol 50 mg tablet 50 mg PO Q8H PRN (Reason: pain) Qty: 15 0RF Referrals: Lolis Augustine PA-C [Primary Care Provider, Medical] Stand Alone Forms: Patient Portal/API
== END 2025-08-22 12:31 | disposition home or self-care (01) ==
PROVIDERS: Emergency Provider Emergency Medicine; Family Provider Internal Medicine Cardiovascular Disease; PCP Physician Assistant
DX: N39.0 Urinary tract infection, site not specified (principal)
CPT/HCPCS: 51798; 81001; 87077; 87086; 87147; 87186; 96365; 99283; 99284; J0696; J7050